=== PATIENT | female | born 1970 | race Caucasian/White ===

== ENCOUNTER 2016-10-31 20:12 | Emergency (ER) | payer OTHER ==
[~2016-10-31] VITALS: Ht 157.5 cm; Wt 69.9 kg
[~2016-10-31 20:12] MED LIST: ACET-1256 PO; ALBUAER19 INH; B-COTAB18 PO; CHOL100027 PO; DOXY100T35 PO; IBUP-1050 PO; MAGN500T4 PO; MULT-506 PO; OYST500T47 PO; VALA1TAB PO
[2016-10-31 20:17] VITALS: TEMP 36.5; Ht 157.5 cm; Wt 69.9 kg
[2016-10-31] MEDS ORDERED: PROCHLORPERAZINE 5 MG/ML 2 ML VIAL IV STA (21:46)
[2016-10-31] MEDS ORDERED: SUMATRIPTAN SUCCINATE 6 MG/0.5 ML VIAL SQ STA (21:46)
[2016-10-31] MEDS ORDERED: SODIUM CHLORIDE 0.9% 1000ML 1,000 ML IV STA (21:46)
[2016-10-31] MEDS ORDERED: DiphenhydrAMINE HCL 50 MG/ML VIAL IV STA (21:46)
[2016-10-31] MEDS ORDERED: HYDROmorphone INJ 1 MG/ML SYR IV STA ×2 (22:29→23:39)
[2016-10-31] MEDS ORDERED: HYDROmorphone INJ 0.5 MG/0.5 ML SYR ONE (23:51)
[2016-11-01] MEDS ORDERED: PROM25TA9 PO (00:27)
[2016-11-01 00:33] VITALS: BP 111/73; PULSE 82; O2SAT 98
--- NOTE | 2016-11-01 01:25 | EMERGENCY ROOM VISIT NOTE ---
History Report prepared by Todd: Teri Goldberg Under the Supervision of: Dr. Sridhar Tate M.D. First contact with patient: 21:39 Chief Complaint: HEADACHE Stated Complaint: MIGRAINE, NAUSEA, SINUS INFECTION, BRONCHITIS History of Present Illness The patient is a 46 year old female who presents to the Emergency Room with complaints of a worsening headache for the past 1.5 hours. Her pain is located in the back of her head bilaterally and radiates down to her neck. She has a history of migraine headaches and states that this feels like her typical migraine headache. The patient states that smells typically aggravate her migraines and this evening she was at the dog clinic with her dog. She thinks that the smells there triggered her headache. The patient rates her current pain as an 8/10 in severity. She typically takes Imitrex for her migraines but states that she is currently out of that medication so she didn't take any. She is nauseated but denies any vomiting. The patient is currently on amoxicillin for a sinus infection and bronchitis. She had a fever a few days ago but denies any more recent fevers. Source of History: patient Onset: 1.5 hours [employer] Position: head Symptom Intensity: 8/10 Quality: other (radiating) Timing: worsening Modifying Factors (Worsening): other (smells) Associated Symptoms: + nausea, No fevers, No vomiting Review of Systems See HPI for pertinent positives & negatives. A total of 10 systems reviewed and were otherwise negative. Past Medical & Surgical Medical Problems: (1) Abdominal pain (2) Abdominal pain (3) Anticoagulants,Lt,Current Use (4) Anxiety State Nos (5) Asthma (6) Asthma, Unspecified (7) Chest pain (8) Clavicle fracture (9) Deep venous thrombosis (10) Depressive Disorder Nec (11) Factor V Leiden (12) History of pulmonary embolus (PE) (13) Hyperlipidemia (14) Intractable headache (15) L1 compression fx (16) Left shoulder pain (17) Left shoulder pain (18) Migraine (19) Oth Forms Migraine W/O Intract Mgrn W/O Status Migrainosus (20) PERSONAL HX OF TIA,& CEREBRAL INFARCTION W/OUT RES DEFICITS (21) Pulmonary embolism (22) Radicular pain in left arm (23) Radicular pain in left arm (24) Subtherapeutic international normalized ratio (INR) (25) Vomiting Surgical Problems: (1) H/O: hysterectomy Social History Problems: (1) Hx-Venous Thrombosis&Embolism Family History Diabetes mellitus FH: [place] (myocardial infarction) FH: heart disease Hypertension Thromboembolic disease Social History Smoking Status: Never Smoker Alcohol Use: occasionally Drug Use: none Marital Status: Housing Status: lives with family Occupation Status: employed Current/Historical Medications Scheduled Apixaban (Eliquis), 5 MG PO BID B-Complex Vitamins (Vitamin B Complex), 1 TAB PO DAILY Cholecalciferol (Vitamin D 1000 Unit), 1,000 INTER.UNIT PO DAILY Escitalopram Oxalate (Escitalopram Oxalate), 20 MG PO QAM Lamotrigine (Lamictal), 150 MG PO QPM Scheduled PRN Albuterol (Ventolin Hfa), 2 PUFFS INH Q4-6HRS PRN for ASTHMA SYMPTOMS Promethazine Hcl (Phenergan), 25 MG PO Q6H PRN for Nausea Sumatriptan Succinate (Imitrex), 1 TAB PO UD PRN for Headache Trazodone HCl (Trazodone HCl), 50 MG PEG HS PRN for Sleep Valacyclovir Hcl (Valtrex), 1,000 MG PO DIRECTED PRN for OUTBREAKS Allergies Coded Allergies: No Known Allergies (Unverified , 10/31/16) Physical Exam Vital Signs Date Time Temp Pulse Resp B/P Pulse Ox O2 Delivery O2 Flow Rate FiO2 11/01/16 00:33 82 18 111/73 98 10/31/16 22:59 82 18 128/86 98 Room Air 10/31/16 20:17 36.5 96 18 121/80 97 Room Air Physical Exam Constitutional: Vital signs reviewed. Eyes: Pupils are equal round reactive to light. Conjunctiva are noninjected. ENT: Pharynx is clear without erythema or exudate. Mucous membranes are moist. Neck supple without meningeal signs. Respiratory: Clear to auscultation bilaterally. Breath sounds are equal bilaterally. Cardiovascular: Regular rate and rhythm. No rubs or gallops. GI: Soft, nondistended and nontender. Bowel sounds are present. Musculoskeletal: No peripheral edema. Integumentary: No cyanosis. Neurological: The patient is awake and alert. Cranial nerves II-XII are intact. Motor is 5 out of 5 all extremities. Sensation is intact to light touch all extremities. Normal speech. No pronator drift. Psychiatric: Normal affect. Medical Decision & Procedures Medications Administered Medications (Trade) Dose Ordered Sig/Shay Route Start Time Stop Time Status Last Admin Dose Admin Sodium Chloride (Nss 1000ml) 1,000 ml @ 999 mls/hr Q1H1M STAT IV 10/31/16 21:46 10/31/16 22:46 DC 10/31/16 22:14 999 MLS/HR Prochlorperazine Edisylate (Compazine Inj) 10 mg NOW STAT IV 10/31/16 21:46 10/31/16 21:55 DC 10/31/16 22:14 10 MG Diphenhydramine HCl (Benadryl Inj) 50 mg NOW STAT IV 10/31/16 21:46 10/31/16 21:55 DC 10/31/16 22:14 50 MG Sumatriptan Succinate (Imitrex Sq Inj) 6 mg NOW STAT SQ 10/31/16 21:46 10/31/16 21:55 DC 10/31/16 22:15 6 MG Hydromorphone HCl (Dilaudid Inj) 1 mg NOW STAT IV 10/31/16 22:29 10/31/16 22:30 DC 10/31/16 22:57 1 MG Hydromorphone HCl (Dilaudid Inj) 0.5 mg STK-MED ONCE .ROUTE 10/31/16 23:51 10/31/16 23:55 DC 10/31/16 23:56 0.5 MG ED Course 2138: The patient was evaluated in room B11B. A complete history and physical exam was performed. 2145: Imitrex 6 mg SQ, Benadryl 50 mg IV, Compazine 10 mg IV, NSS 1000 ml @ 999 mls/hr IV 2227: I reassessed the patient at this time and she thinks that the Benadryl made her headache worse. 9: Dilaudid 1 mg IV 2306: The patient states that her headache is starting to subside. 2338: The patient is feeling better but states that her headache is still there. 9: Dilaudid 0.5 mg IV 0001: I reassessed the patient at this time. She is feeling better and resting comfortably. I discussed the results and treatment plan with the patient. I answered all pertaining questions that she had. She expressed understanding and verbalized agreement. The patient will be discharged home. Medical Decision This is a 46-year-old female who presents with a migraine headache. I did perform a limited focused review of portions of the patient's old chart on the electronic medical record. The patient was admitted over a year ago for intractable migraine headache. I did evaluate the patient as noted above. The patient is presenting with a headache consistent with her prior migraine headaches. She is neurologically intact. She is afebrile. She did have a fever several days ago but states that this is related to her sinus and lung infection. She is currently on antibiotics. IV access was established. I did treat the patient with normal saline IV. She was also given Compazine and Benadryl IV. She was also given Imitrex subcutaneous. On reassessment she states that she has no significant relief of her symptoms and requested Dilaudid. She was treated with IV Dilaudid. On reassessment she is feeling better but still had a headache and was given a small dose of Dilaudid. She did feel better afterwards and felt ready for discharge. She was advised follow closely with her doctor. She was given a prescription for Phenergan per her request. She was given return instructions as outlined below. Impression Primary Impression: Headache Scribe Attestation The scribe's documentation has been prepared under my direct and personally reviewed by me in its entirety. I confirm that the note above accurately reflects all work, treatment, procedures, and medical decision making performed by me. Departure Information Dispostion Home / Self-Care Prescriptions Promethazine Hcl (Phenergan) 25 Mg Tab 25 MG PO Q6H Y for Nausea, #10 TAB Prov: Sridhar Tate M.D. 11/01/16 Referrals Alex Anders M.D. (PCP) Forms HOME CARE DOCUMENTATION FORM, IMPORTANT VISIT INFORMATION, Work Instructions Patient Instructions ED Headache Migraine, My [facility] Additional Instructions You have been examined and treated today on an emergency basis only. This is not a substitute for, or an effort to provide, complete comprehensive medical care. It is impossible to recognize and treat all injuries or illnesses in a single emergency department visit. It is therefore important that you follow up closely with your physician. Call as soon as possible for an appointment. Return for worsening symptoms or if you develop fever, numbness or weakness on one side of your body, difficulties with your speech or walking, or any other concerning symptoms. Problem Qualifiers Primary Impression: Headache Headache type: unspecified Headache chronicity pattern: acute headache Intractability: not intractable Qualified Codes: R51 - Headache
[2017-04-24] MEDS ORDERED: AMPH20CA3 PO (16:40)
[2017-04-24] MEDS ORDERED: AMPH30CA3 PO (16:40)
[2017-04-24] MEDS ORDERED: IBUP-1050 PO (16:41)
== END 2016-11-01 00:34 | disposition home or self-care (01) ==
LOC: C.EDB 20:13
DX: R51 Headache (principal); D68.2 Hereditary deficiency of other clotting factors; F41.9 Anxiety disorder, unspecified; J45.909 Unspecified asthma, uncomplicated; E78.5 Hyperlipidemia, unspecified; Z86.73 Personal history of transient ischemic attack (TIA), and cerebral infarction without residual deficits; Z86.711 Personal history of pulmonary embolism; Z79.01 Long term (current) use of anticoagulants

== ENCOUNTER 2016-11-30 15:38 | Emergency (ER) | payer OTHER ==
[~2016-11-30 15:38] MED LIST changes: -ACET-1256 PO; -ALBUAER19 INH; -DOXY100T35 PO; -IBUP-1050 PO; -MAGN500T4 PO; -MULT-506 PO; -OYST500T47 PO; +PROM25TA9 PO; -VALA1TAB PO
[2016-11-30 15:46] VITALS: TEMP 36.8; Ht 157.5 cm
[2016-11-30] MEDS ORDERED: SODIUM CHLORIDE 0.9% 500ML 500 ML IV STA (16:02)
[2016-11-30 16:19] LABS: BASO % 0.9 %; BASO ABS # 0.09 K/uL (0-0.2); COMPLETE YES; EOS % 2.2 %; HEMATOCRIT 38.9 % (37-47); IG% 0.2 %; LYMPH % 24.4 %; LYMPH ABS # 2.38 K/uL (1.2-3.4); MEAN CELL VOLUME 88.8 fL (80-100); MEAN CORPUSCULAR HEMOGLOBIN 30.8 pg (25-34); MEAN CORPUSCULAR HGB CONC 34.7 g/dl (32-36); MEAN PLATELET VOLUME 9.1 fL (7.4-10.4); MONO % 8.2 %; NEUT % 64.1 %; PLATELET COUNT 376 K/uL (130-400); RED BLOOD COUNT 4.38 M/uL (4.2-5.4); WHITE BLOOD COUNT 9.74 K/uL (4.8-10.8)
[2016-11-30 16:22] LABS: URINE APPEARANCE CLEAR (CLEAR); URINE BILIRUBIN NEG (NEG); URINE COLOR YELLOW; URINE EPITHELIAL CELL AUTO 20-30 /lpf (0-5); URINE NITRITE NEG (NEG); URINE PH 7.5 (4.5-7.5); URINE SPECIFIC GRAVITY 1.003 (1.000-1.030); UROBILINOGEN NEG (NEG); ZZUR CULT IF INDIC CLEAN CATCH NO
[2016-11-30] MEDS ORDERED: ONDANSETRON INJ 2 MG/ML 2 ML VIAL IV STA ×2 (16:28→19:50)
[2016-11-30 16:29] LABS: MANUAL MICROSCOPIC REQUIRED? NO; REVIEW REQ? NO
--- NOTE | 2016-11-30 16:34 | EMERGENCY ROOM VISIT NOTE ---
History Report prepared by Todd: Augustus Rivera Under the Supervision of: Dr. Alex Villalobos D.O. First contact with patient: 16:22 Chief Complaint: DIZZY Stated Complaint: DIZZY, EARS, ORTHOSTATIC Nursing Triage Summary: states she has felt "extremely dizzy and orthostatic" since this morning-states it is "never this bad" and she just "doesn't understand why it won't stop" History of Present Illness The patient is a 46 year old female who presents to the Emergency Room with complaints of dizziness that began this morning. She has been having dizziness for the past year. The patient went to see a Regulatory Affairs Spec secondary to this issue for a cardiac ECHO. She has not received the results yet. She was told that she has an orthostatic condition and to eat more salt. She has not been doing this. Her dizziness gets worse when she stands up from a sitting condition. She notes that she begins to get dizzy, feels numb, her vision "goes lee," and she starts to hear a helicopter-like "whoosh" noise in her ears. She denies any shortness of breath, chest pain, vomiting, room spinning, and a headache. She is currently feeling nauseated and has tightness around her ears. She is on blood thinners. She has a past history of a hysterectomy that occurred four years ago. Source of History: patient Onset: this morning Position: other (global) Symptom Intensity: moderate Quality: other (dizziness) Timing: waxes/wanes Modifying Factors (Worsening): movement (Standing) Associated Symptoms: + nausea, + numbness, No SOB, No chest pain, No headache, No vomiting Review of Systems See HPI for pertinent positives & negatives. A total of 10 systems reviewed and were otherwise negative. Past Medical & Surgical Medical Problems: (1) Abdominal pain (2) Abdominal pain (3) Anticoagulants,Lt,Current Use (4) Anxiety State Nos (5) Asthma (6) Asthma, Unspecified (7) Chest pain (8) Clavicle fracture (9) Deep venous thrombosis (10) Depressive Disorder Nec (11) Factor V Leiden (12) History of pulmonary embolus (PE) (13) Hyperlipidemia (14) Intractable headache (15) L1 compression fx (16) Left shoulder pain (17) Left shoulder pain (18) Migraine (19) Oth Forms Migraine W/O Intract Mgrn W/O Status Migrainosus (20) PERSONAL HX OF TIA,& CEREBRAL INFARCTION W/OUT RES DEFICITS (21) Pulmonary embolism (22) Radicular pain in left arm (23) Radicular pain in left arm (24) Subtherapeutic international normalized ratio (INR) (25) Vomiting Surgical Problems: (1) H/O: hysterectomy Social History Problems: (1) Hx-Venous Thrombosis&Embolism Family History Diabetes mellitus FH: [place] (myocardial infarction) FH: heart disease Hypertension Thromboembolic disease Social History Smoking Status: Never Smoker Alcohol Use: occasionally Drug Use: none Marital Status: Housing Status: lives with family Occupation Status: employed Current/Historical Medications Scheduled Amphetamine-Dextroamphetamine 20MG (Adderall Xr 20MG), 20 MG PO QAM Amphetamine-Dextroamphetamine 30MG (Adderall Xr 30MG), 30 MG PO QAM Apixaban (Eliquis), 5 MG PO BID Escitalopram Oxalate (Escitalopram Oxalate), 20 MG PO QAM Ibuprofen (Advil), 800 MG PO PRN UD Lamotrigine (Lamictal), 150 MG PO QPM Scheduled PRN Albuterol (Ventolin Hfa), 2 PUFFS INH Q4-6HRS PRN for ASTHMA SYMPTOMS Promethazine Hcl (Phenergan), 25 MG PO Q6H PRN for Nausea Sumatriptan Succinate (Imitrex), 1 TAB PO UD PRN for Headache Trazodone HCl (Trazodone HCl), 50-150 MG PEG HS PRN for Sleep Valacyclovir Hcl (Valtrex), 1,000 MG PO DIRECTED PRN for OUTBREAKS Allergies Coded Allergies: No Known Allergies (Unverified , 10/31/16) Physical Exam Vital Signs Date Time Temp Pulse Resp B/P Pulse Ox O2 Delivery O2 Flow Rate FiO2 11/30/16 21:01 88 14 117/80 98 Room Air 11/30/16 19:31 72 20 144/93 95 Room Air 11/30/16 18:46 70 20 140/83 11/30/16 17:07 75 12 125/56 97 Room Air 11/30/16 16:10 88 111/76 101 118/76 82 128/77 11/30/16 16:03 92 14 118/78 97 Room Air 11/30/16 16:02 93 11/30/16 15:46 36.8 94 20 108/73 97 Room Air Physical Exam GENERAL: Patient is awake, alert, and in no acute distress. Patient is resting comfortably and showing no signs of anxiety EYES: The conjunctivae are clear. The pupils are round and reactive. EARS, NOSE, MOUTH AND THROAT: The nose is without any evidence of any deformity. Mucous membranes are moist tongue is midline. TM's clear bilaterally. NECK: The neck is nontender and supple. RESPIRATORY: Normal respiratory effort is noted there is no evidence of wheezing rhonchi or rales CARDIOVASCULAR: Regular rate and rhythm noted there no murmurs rubs or gallops normal S1 normal S2 GASTROINTESTINAL: The abdomen is soft. Bowel sounds are present in all quadrants. Abdomen is nontender MUSCULOSKELETAL/EXTREMITIES: There is no evidence of gross deformity full range of motion is noted in the hips and shoulders SKIN: There is no obvious evidence of any rash. There are no petechiae, pallor or cyanosis noted. NEUROLOGIC: Patient is awake alert and oriented x3 strength is symmetric patellar reflexes are 2+ bilaterally Medical Decision & Procedures ER Provider Diagnostic Interpretation: Radiology results are stated below per my review and radiologist interpretation: CHEST ONE VIEW PORTABLE CLINICAL HISTORY: Dizzy. COMPARISON STUDY: Chest radiograph and chest CT July 20, 2015. FINDINGS: Lung volumes are normal. There is no pneumothorax or pleural effusion. There is no evidence of pulmonary edema. Cardiac size is normal. Mediastinal contours are normal. IMPRESSION: No acute cardiopulmonary findings. Electronically signed by: Norman Wilson M.D. 11/30/2016 4:32 PM Dictated Date/Time: 11/30/2016 4:[address] OF THE HEAD WITHOUT CONTRAST CLINICAL HISTORY: Headache. Dizziness. COMPARISON STUDY: Head CT July 21, 2012 and MRI of the brain October 10, 2014. CT DOSE: 1074.96 mGy.cm TECHNIQUE: Helical axial images of the head were obtained without IV contrast. Automated exposure control was utilized for the study. FINDINGS: No acute intracranial hemorrhage, midline shift or mass effect is present. Ventricular system is normal. Basilar cisterns are patent. No extra axial collections are present. Dickey-white differentiation is preserved. There are no findings to suggest acute dural sinus thrombosis or acute territorial infarct. There are postsurgical finding within the sinuses. Mastoid air cells are clear. There are no calvarial abnormalities. IMPRESSION: No acute intracranial findings. Electronically signed by: Norman Wilson M.D. 11/30/2016 8:16 PM Dictated Date/Time: 11/30/2016 8:10 PM Laboratory Results 11/30/16 16:03 Red Blood Count 4.38, Mean Corpuscular Volume 88.8, Mean Corpuscular Hemoglobin 30.8, Mean Corpuscular Hemoglobin Concent 34.7, Mean Platelet Volume 9.1, Neutrophils (%) (Auto) 64.1, Lymphocytes (%) (Auto) 24.4, Monocytes (%) (Auto) 8.2, Eosinophils (%) (Auto) 2.2, Basophils (%) (Auto) 0.9, Neutrophils # (Auto) 6.24, Lymphocytes # (Auto) 2.38, Monocytes # (Auto) 0.80, Eosinophils # (Auto) 0.21, Basophils # (Auto) 0.09 11/30/16 16:03 Test 11/30/16 16:03 11/30/16 16:05 11/30/16 16:10 White Blood Count 9.74 K/uL (4.8-10.8) Red Blood Count 4.38 M/uL (4.2-5.4) Hemoglobin 13.5 g/dL (12.0-16.0) Hematocrit 38.9 % (37-47) Mean Corpuscular Volume 88.8 fL (80-100) Mean Corpuscular Hemoglobin 30.8 pg (25-34) Mean Corpuscular Hemoglobin Concent 34.7 g/dl (32-36) Platelet Count 376 K/uL (130-400) Mean Platelet Volume 9.1 fL (7.4-10.4) Neutrophils (%) (Auto) 64.1 % Lymphocytes (%) (Auto) 24.4 % Monocytes (%) (Auto) 8.2 % Eosinophils (%) (Auto) 2.2 % Basophils (%) (Auto) 0.9 % Neutrophils # (Auto) 6.24 K/uL (1.4-6.5) Lymphocytes # (Auto) 2.38 K/uL (1.2-3.4) Monocytes # (Auto) 0.80 K/uL (0.11-0.59) Eosinophils # (Auto) 0.21 K/uL (0-0.5) Basophils # (Auto) 0.09 K/uL (0-0.2) RDW Standard Deviation 40.7 fL (36.4-46.3) RDW Coefficient of Variation 12.6 % (11.5-14.5) Immature Granulocyte % (Auto) 0.2 % Immature Granulocyte # (Auto) 0.02 K/uL (0.00-0.02) Anion Gap 6.0 mmol/L (3-11) Estimated GFR () 86.6 Estimated GFR (Non- 74.7 BUN/Creatinine Ratio 12.5 (10-20) Calcium Level 8.8 mg/dl (8.5-10.1) Total Bilirubin 0.2 mg/dl (0.2-1) Aspartate Amino Transf (AST/SGOT) 16 U/L (15-37) Alanine Aminotransferase (ALT/SGPT) 26 U/L (12-78) Alkaline Phosphatase 73 U/L (45-117) Total Creatine Kinase 130 U/L (26-192) Creatine Kinase MB 1.0 ng/ml (0.5-3.6) Creatine Kinase MB Ratio 0.8 (0-3.0) Total Protein 7.8 gm/dl (6.4-8.2) Albumin 4.2 gm/dl (3.4-5.0) Globulin 3.6 gm/dl (2.5-4.0) Albumin/Globulin Ratio 1.2 (0.9-2) Thyroid Stimulating Hormone (TSH) 1.500 uIu/ml (0.300-4.500) Urine Color YELLOW Urine Appearance CLEAR (CLEAR) Urine pH 7.5 (4.5-7.5) Urine Specific Almond 1.003 (1.000-1.030) Urine Protein NEG (NEG) Urine Glucose (UA) NEG (NEG) Urine Ketones NEG (NEG) Urine Occult Blood NEG (NEG) Urine Nitrite NEG (NEG) Urine Bilirubin NEG (NEG) Urine Urobilinogen NEG (NEG) Urine Leukocyte Esterase NEG (NEG) Urine WBC (Auto) 1-5 /hpf (0-5) Urine RBC (Auto) 0-4 /hpf (0-4) Urine Hyaline Casts (Auto) 0 /lpf (0-5) Urine Epithelial Cells (Auto) 20-30 /lpf (0-5) Urine Bacteria (Auto) NEG (NEG) Urine Test NEG (NEG) Bedside Troponin I 0.000 ng/ml (0-0.045) Laboratory results per my review. Medications Administered Medications (Trade) Dose Ordered Sig/Shay Route Start Time Stop Time Status Last Admin Dose Admin Sodium Chloride (Nss 500ml) 500 ml @ 999 mls/hr Q31M STAT IV 11/30/16 16:02 11/30/16 16:32 DC 11/30/16 16:02 999 MLS/HR Ondansetron HCl (Zofran Inj) 4 mg NOW STAT IV 11/30/16 16:28 11/30/16 16:29 DC 11/30/16 16:37 4 MG Sumatriptan Succinate (Imitrex Sq Inj) 6 mg NOW STAT SQ 11/30/16 17:56 11/30/16 17:57 DC 11/30/16 18:04 6 MG Hydromorphone HCl 0.5 mg 0.5 mg NOW STAT IV 11/30/16 17:56 11/30/16 17:57 DC 11/30/16 18:04 0.5 MG Promethazine HCl/ Sodium Chloride (Phenergan Inj/ Nss 50ml) 50.5 ml @ 204 mls/hr NOW STAT IV 11/30/16 18:14 11/30/16 18:28 DC 11/30/16 18:25 204 MLS/HR Diphenhydramine HCl (Benadryl Inj) 12.5 mg NOW STAT IV 11/30/16 18:34 11/30/16 18:35 DC 11/30/16 18:46 12.5 MG Hydromorphone HCl (Dilaudid Inj) 0.5 mg NOW STAT IV 11/30/16 18:34 11/30/16 18:35 DC 11/30/16 18:46 0.5 MG Ondansetron HCl (Zofran Inj) 4 mg NOW STAT IV 11/30/16 19:50 11/30/16 19:51 DC 11/30/16 20:34 4 MG Hydromorphone HCl (Dilaudid Inj) 0.5 mg NOW STAT IV 11/30/16 20:48 11/30/16 20:49 DC 11/30/16 20:56 0.5 MG Diphenhydramine HCl (Benadryl Inj) 12.5 mg NOW STAT IV 11/30/16 20:51 11/30/16 20:52 DC 11/30/16 20:56 12.5 MG Ondansetron HCl (ZOFRAN ODT 4MG Home Pack) 1 homepack UD ONCE PO 11/30/16 21:30 11/30/16 21:31 DC 11/30/16 21:31 1 HOMEPACK ECG Indication: other (Dizziness) Rate (beats per minute): 93 Rhythm: normal sinus Findings: no ectopy, other (No acute ST segments) Comparison ECG Date: 19 Jul 2015 Change: no significant change ED Course 1602: Ordered NSS 1,000 ml @ 999 mls/hr IV 1622: The patient was evaluated in room C4. A complete history and physical examination were performed. 1628: Ordered Zofran Inj 4 mg IV 1756: Ordered Dilaudid Inj 0.5 mg IV, Imitrex Sq Inj 6 mg SQ 1814: Ordered Promethazine HCl 12.5 mg/Sodium Chloride 50.5 ml @ 204 mls IV 1834: Ordered Dilaudid Inj 0.5 mg IV, Benadryl Inj 12.5 mg IV 1950: Ordered Zofran Inj 4 mg IV 2048: Ordered Dilaudid Inj 0.5 mg IV 2050: Ordered Benadryl Inj 12.5 mg IV 2129: Ordered Ondansetron HCl 1 homepack PO 2144: Upon reevaluation, the patient is resting. I discussed the results and treatment plan with her. She verbalized agreement of the treatment plan. She was discharged home. Medical Decision Differential diagnosis: Etiologies such as vasovagal event, infection, hypoglycemia, electrolyte abnormalities, cardiac sources, intracerebral event, toxicologic, neurologic, as well as others were entertained. Nursing notes reviewed. The patient is a 46-year-old female who has a history of orthostatic hypotension which is still being evaluated who presented to the emergency department for worsening of her orthostatic hypotension. The patient was treated with IV fluids and IV antiemetics in the emergency department. On subsequent reevaluation she was feeling much better but she started to develop a migraine headache. The patient is a history of chronic migraines. I reviewed the patient's previous electronic medical records and she was treated with medications that she is received in the past. I discussed the patient's laboratory and radiographic studies with her. She was encouraged to rest and avoid any strenuous activity. She was also encouraged to continue all medications as prescribed. She was also encouraged follow-up with her family doctor this week for reevaluation. The patient had an echocardiogram recently but she does not know the results of this study at this time. They were not in our system and she was encouraged to follow-up with her doctor about these results to see if any further testing was required. Impression Primary Impression: Orthostatic hypotension Additional Impression: Headache Scribe Attestation The scribe's documentation has been prepared under my direction and personally reviewed by me in its entirety. I confirm that the note above accurately reflects all work, treatment, procedures, and medical decision making performed by me. Departure Information Dispostion Home / Self-Care Referrals Alex Anders M.D. (PCP) Forms HOME CARE DOCUMENTATION FORM, IMPORTANT VISIT INFORMATION Patient Instructions ED Hypotension Orthostatic, Headaches Migraine and Tension, My [facility] Additional Instructions Rest and avoid any strenuous activity. Drink plenty clear liquids. Continue all medications as prescribed. Call your doctor in the morning to schedule a follow- up appointment. Problem Qualifiers
[2016-11-30 16:37] LABS: ALT/SGPT 26 U/L (12-78); AST/SGOT 16 U/L (15-37); BLOOD UREA NITROGEN 12 mg/dl (7-18); BUN/CREATININE RATIO 12.5 (10-20); CALCIUM 8.8 mg/dl (8.5-10.1); CARBON DIOXIDE 29 mmol/L (21-32); CHLORIDE 105 mmol/L (98-107); CREATININE 0.93 mg/dl (0.60-1.20); GLUCOSE 84 mg/dl (70-99); POTASSIUM 3.8 mmol/L (3.5-5.1); SODIUM 140 mmol/L (136-145)
[2016-11-30 16:48] LABS: ALB/GLOB RATIO 1.2 (0.9-2); ALKALINE PHOSPHATASE 73 U/L (45-117); CKMB/CK RATIO 0.8 (0-3.0)
[2016-11-30] MEDS ORDERED: SUMA25TA12 PO (17:38)
[2016-11-30] MEDS ORDERED: SUMATRIPTAN SUCCINATE 6 MG/0.5 ML VIAL SQ STA (17:56)
[2016-11-30] MEDS ORDERED: HYDROmorphone INJ 0.5 MG/0.5 ML SYR IV STA ×3 (17:56→20:48)
[2016-11-30] MEDS ORDERED: PROMETHAZINE HCL INJ 12.5 MG in SODIUM CHLORIDE 0.9% 50ML 50 ML IV STA (18:14)
[2016-11-30] MEDS ORDERED: DiphenhydrAMINE HCL 50 MG/ML VIAL IV STA ×2 (18:34→20:51)
--- NOTE | 2016-11-30 20:19 | DIAGNOSTIC IMAGING REPORT ---
CT OF THE HEAD WITHOUT CONTRAST CLINICAL HISTORY: Headache. Dizziness. COMPARISON STUDY: Head CT July 21, 2012 and MRI of the brain October 10, 2014. CT DOSE: 1074.96 mGy.cm TECHNIQUE: Helical axial images of the head were obtained without IV contrast. Automated exposure control was utilized for the study. FINDINGS: No acute intracranial hemorrhage, midline shift or mass effect is present. Ventricular system is normal. Basilar cisterns are patent. No extra axial collections are present. Dickey-white differentiation is preserved. There are no findings to suggest acute dural sinus thrombosis or acute territorial infarct. There are postsurgical finding within the sinuses. Mastoid air cells are clear. There are no calvarial abnormalities. IMPRESSION: No acute intracranial findings. Electronically signed by: Norman Wilson M.D. 11/30/2016 8:16 PM Dictated Date/Time: 11/30/2016 8:10 PM
[2016-11-30 21:01] VITALS: BP 117/80; PULSE 88; O2SAT 98
[2016-11-30] MEDS ORDERED: ONDANSETRON HOME PACK 4MG OD TAB PO ONE (21:30)
[2016-11-30] MEDS ORDERED: PRVHFAIN INH (22:53)
[2017-04-24] MEDS ORDERED: AMPH30CA3 PO (16:40)
[2017-04-24] MEDS ORDERED: AMPH20CA3 PO (16:40)
[2017-04-24] MEDS ORDERED: IBUP-1050 PO (16:41)
== END 2016-11-30 21:36 | disposition home or self-care (01) ==
LOC: C.EDB 15:40 → C.EDC 21:36
DX: I95.1 Orthostatic hypotension (principal); Z90.710 Acquired absence of both cervix and uterus; Z79.01 Long term (current) use of anticoagulants; Z79.899 Other long term (current) drug therapy; F41.9 Anxiety disorder, unspecified; J45.909 Unspecified asthma, uncomplicated; F32.9 Major depressive disorder, single episode, unspecified; Z86.711 Personal history of pulmonary embolism; Z86.718 Personal history of other venous thrombosis and embolism; E78.5 Hyperlipidemia, unspecified; Z86.73 Personal history of transient ischemic attack (TIA), and cerebral infarction without residual deficits; Z83.3 Family history of diabetes mellitus; Z82.49 Family history of ischemic heart disease and other diseases of the circulatory system; D68.51 Activated protein C resistance; G43.909 Migraine, unspecified, not intractable, without status migrainosus

== ENCOUNTER → 2016-12-02 | Outpatient (CLI) | payer OTHER ==
[~2016-12-02] MED LIST changes: +AMPH20CA3 PO; +AMPH30CA3 PO; +APIX1TAB3 PO; +DICL1GEL34 TOP; +DSY/150 PO; +IBUP-1050 PO; +IMT100 PO; +LAMO150T32 PO; +LXP/20 PO; +PROM25TA16 PO; +PRVHFAIN INH; +SUMA25TA12 PO; +VALA1TAB2 PO; +VNTHFA/IN INH
--- NOTE | 2016-12-02 14:57 | DIAGNOSTIC IMAGING REPORT ---
RIGHT SHOULDER 3 VIEWS HISTORY: STRAIN OF TENDON OF RIGHT ROTATOR CUFF Right COMPARISON: None. FINDINGS: There is no fracture or dislocation. Soft tissues are unremarkable. No radiopaque foreign bodies. The right clavicle is intact. IMPRESSION: No fractures. Electronically signed by: Joseph Javier M.D. 12/02/2016 2:55 PM Dictated Date/Time: 12/02/2016 2:54 PM
== END | disposition home or self-care (01) ==
LOC: C.RAD1850 14:31
PROVIDERS: ATTEND Physician Assistant
DX: S46.011A Strain of muscle(s) and tendon(s) of the rotator cuff of right shoulder, initial encounter (principal); X58.XXXA Exposure to other specified factors, initial encounter

== ENCOUNTER 2017-04-24 17:37 | Emergency (ER) | payer OTHER ==
[~2017-04-24] VITALS: Ht 160 cm; Wt 70.0 kg
[~2017-04-24 17:37] MED LIST changes: -APIX1TAB3 PO; -B-COTAB18 PO; -CHOL100027 PO; -DICL1GEL34 TOP; -DSY/150 PO; -IMT100 PO; -LAMO150T32 PO; -LXP/20 PO; -PROM25TA16 PO; -VALA1TAB2 PO; -VNTHFA/IN INH
[2017-04-24 17:42] VITALS: TEMP 36.8; Ht 160 cm; Wt 70.0 kg
[2017-04-24] MEDS ORDERED: DICL1GEL34 TOP (18:38)
[2017-04-24] MEDS ORDERED: IMT100 PO (18:38)
[2017-04-24] MEDS ORDERED: VNTHFA/IN INH (18:38)
[2017-04-24] MEDS ORDERED: PROM25TA16 PO (18:38)
[2017-04-24] MEDS ORDERED: ACETAMINOPHEN 500 MG TAB PO STA (18:48)
[2017-04-24] MEDS ORDERED: IBUPROFEN 600 MG TAB PO STA (18:48)
--- NOTE | 2017-04-24 18:51 | DIAGNOSTIC IMAGING REPORT ---
LEFT HAND MIN 3 VIEWS ROUTINE CLINICAL HISTORY: Left hand injury. 3rd mcp swelling. COMPARISON: None FINDINGS: Alignment of left hand is anatomic. There is no acute fracture. Carpal bones are intact. IMPRESSION: No acute fracture or dislocation of the left hand. Electronically signed by: Norman Wilson M.D. 04/24/2017 6:49 PM Dictated Date/Time: 04/24/2017 6:29 PM
[2017-04-24] MEDS ORDERED: TRAMADOL HCL 50 MG HOME PACK PO ONE (19:00)
[2017-04-24 19:13] VITALS: BP 122/76; PULSE 72; O2SAT 97
--- NOTE | 2017-04-24 20:02 | EMERGENCY ROOM VISIT NOTE ---
ED Visit Note First contact with patient: 17:49 CHIEF COMPLAINT: Hand injury HISTORY OF PRESENT ILLNESS: This 46-year-old female patient presented to the emergency department after they injured the left hand after falling yesterday. The patient slipped, and essentially punched into the ground with her second and third metacarpals. The patient rates the pain as sharp and 6/10. The patient denies any numbness or tingling. The patient does not have injuries to the wrist. The patient has not had a previous fracture to this hand. REVIEW OF SYSTEMS: A 6 system review of systems was completed with positives and pertinent negatives in the HPI. ALLERGIES: No known allergies MEDICATIONS: [place] PMH: History of DVT/PE SOCIAL HISTORY: Lives locally. Employed. PHYSICAL EXAM: Vital Signs: Reviewed Nurse's notes, vital signs stable. GENERAL : White female, in no acute distress, but appears to be in pain, well-developed , well-nourished. MUSCULOSKELETAL: There is no significant deformity of the left hand. There is tenderness over the second and third metacarpal phalangeal joints. There is no thenar or hypothenar eminence atrophy. Normal thumb opposition to all fingers. Seo Assistant strength 2/5. There is no laceration. Capillary refill less than 2 seconds. No tenderness of the fingers or wrist. Full range of motion of the wrist. No snuff box tenderness. Radial pulse 2+. NEURO: Alert and oriented to person, place, and time. Normal sensation to light and sharp touch. LEFT HAND MIN 3 VIEWS ROUTINE CLINICAL HISTORY: Left hand injury. 3rd mcp swelling. COMPARISON: None FINDINGS: Alignment of left hand is anatomic. There is no acute fracture. Carpal bones are intact. IMPRESSION: No acute fracture or dislocation of the left hand. EMERGENCY DEPARTMENT COURSE: Physical exam and history were performed. Nursing notes and EMR were reviewed. The patient appears to have suffered injury to her left hand as described above. On examination she is tender over the second and third metacarpophalangeal joints. X-ray was obtained. The patient was given Tylenol here in the department. The x-ray does not show evidence of acute fracture or dislocation per my radiologist interpretation. Overall the patient appears well for discharge home. I suspect that most of her discomfort is from the contusion, and this should improve over time. I will give her a home pack of tramadol for this evening. She is to follow with her primary care physician or orthopedist with any ongoing or persistent symptoms. Problem List Medical Problems: (1) Abdominal pain Status: Resolved (2) Abdominal pain Status: Resolved (3) Anticoagulants,Lt,Current Use Status: Chronic (4) Anxiety State Nos Status: Chronic (5) Asthma Status: Chronic (6) Asthma, Unspecified Status: Chronic (7) Chest pain Status: Resolved (8) Clavicle fracture Status: Resolved (9) Deep venous thrombosis Status: Resolved (10) Depressive Disorder Nec Status: Chronic (11) Factor V Leiden Status: Chronic (12) History of pulmonary embolus (PE) Status: Chronic (13) Hyperlipidemia Status: Chronic (14) Intractable headache Status: Resolved (15) L1 compression fx Status: Resolved (16) Left shoulder pain Status: Resolved (17) Left shoulder pain Status: Resolved (18) Oth Forms Migraine W/O Intract Mgrn W/O Status Migrainosus Status: Chronic (19) PERSONAL HX OF TIA,& CEREBRAL INFARCTION W/OUT RES DEFICITS Status: Resolved (20) Pulmonary embolism Status: Resolved (21) Radicular pain in left arm Status: Resolved (22) Radicular pain in left arm Status: Resolved (23) Subtherapeutic international normalized ratio (INR) Status: Resolved (24) Vomiting Status: Resolved Surgical Problems: (1) H/O: hysterectomy Status: Resolved Current/Historical Medications Scheduled Amphetamine-Dextroamphetamine 20MG (Adderall Xr 20MG), 20 MG PO QAM Amphetamine-Dextroamphetamine 30MG (Adderall Xr 30MG), 30 MG PO QAM Apixaban (Eliquis), 5 MG PO BID Escitalopram Oxalate (Escitalopram Oxalate), 10 MG PO QAM Ibuprofen (Advil), 800 MG PO UD Lamotrigine (Lamictal), 150 MG PO QPM Scheduled PRN Albuterol Hfa (Ventolin Hfa), 1-2 PUFFS INH Q4-6HRS PRN for SOB/Wheezing Diclofenac Sodium (Topical) (Diclofenac Sodium), 1 APPLN TOP QID PRN for Pain Promethazine HCl (Promethazine HCl), 25 MG PO Q6H PRN for Nausea Sumatriptan Succinate (Imitrex), 100 MG PO UD PRN for Migraine Trazodone HCl (Trazodone HCl), 75 MG PO HS PRN for Insomnia Valacyclovir Hcl (Valtrex), 1,000 MG PO UD PRN for Outbreaks Allergies Coded Allergies: No Known Allergies (Unverified , 10/31/16) Vital Signs Date Time Temp Pulse Resp B/P (MAP) Pulse Ox O2 Delivery O2 Flow Rate FiO2 04/24/17 19:13 72 20 122/76 97 04/24/17 17:42 36.8 96 18 127/77 95 Room Air Medications Administered Medications (Trade) Dose Ordered Sig/Shay Route Start Time Stop Time Status Last Admin Dose Admin Acetaminophen (Tylenol Tab) 1,000 mg NOW STAT PO 04/24/17 18:48 04/24/17 18:49 DC 04/24/17 19:10 1,000 MG Tramadol HCl (Ultram Home Pack) 1 homepack UD ONCE PO 04/24/17 19:00 04/24/17 19:01 DC 04/24/17 19:10 1 HOMEPACK Departure Information Impression Primary Impression: Injury of left hand Dispostion Home / Self-Care Condition GOOD Forms HOME CARE DOCUMENTATION FORM, Work Instructions, Additional Instructions: Patient was seen in the emergency department for medical care. Return t work on 04/28/2017. IMPORTANT VISIT INFORMATION Patient Instructions My [facility] Additional Instructions You were seen and evaluated today on an emergency basis only. This is not a substitute for, or an effort to provide, complete comprehensive medical care. It is not possible to recognize and treat all injuries or illnesses in a single emergency department visit. For this reason it is recommended that you followup with your primary care physician next week for any ongoing or persistent symptoms. You may use tramadol (homepack) 50 mg every 8 hours for breakthrough pain. Do not drink or drive on this medication. You are welcome to return to the emergency department anytime with new, worsening, or concerning symptoms. Work Instructions Additional Work Instructions: Patient was seen in the emergency department for medical care. Return to work on 04/28/2017.
[2017-04-24] MEDS ORDERED: APIX1TAB3 PO (20:21)
[2017-04-24] MEDS ORDERED: DSY/150 PO (20:21)
[2017-04-24] MEDS ORDERED: LAMO150T32 PO (21:34)
[2017-04-24] MEDS ORDERED: LXP/20 PO (21:34)
[2017-04-24] MEDS ORDERED: VALA1TAB2 PO (22:53)
== END 2017-04-24 19:14 | disposition home or self-care (01) ==
LOC: C.EDB 17:38 → C.EDD 19:14
DX: S69.92XA Unspecified injury of left wrist, hand and finger(s), initial encounter (principal); W01.198A Fall on same level from slipping, tripping and stumbling with subsequent striking against other object, initial encounter; Z79.01 Long term (current) use of anticoagulants; Z86.718 Personal history of other venous thrombosis and embolism; Z86.711 Personal history of pulmonary embolism; F41.9 Anxiety disorder, unspecified; J45.909 Unspecified asthma, uncomplicated; F32.9 Major depressive disorder, single episode, unspecified; D68.51 Activated protein C resistance; E78.5 Hyperlipidemia, unspecified; Z86.73 Personal history of transient ischemic attack (TIA), and cerebral infarction without residual deficits; Z90.710 Acquired absence of both cervix and uterus; Z79.899 Other long term (current) drug therapy

== ENCOUNTER → 2017-06-11 | Outpatient (CLI) | payer OTHER ==
[~2017-06-11] MED LIST changes: +APIX1TAB3 PO; +DICL1GEL34 TOP; +DSY/150 PO; +IMT100 PO; +LAMO150T32 PO; +LXP/20 PO; +PROM25TA16 PO; -PROM25TA9 PO; -PRVHFAIN INH; -SUMA25TA12 PO; +VALA1TAB2 PO; +VNTHFA/IN INH
[2017-06-11 13:16] LABS: BASO % 0.5 %; BASO ABS # 0.05 K/uL (0-0.2); COMPLETE YES; EOS % 0.4 %; HEMATOCRIT 41.6 % (37-47); IG% 0.2 %; LYMPH % 18.5 %; LYMPH ABS # 2.04 K/uL (1.2-3.4); MEAN CELL VOLUME 89.8 fL (80-100); MEAN CORPUSCULAR HEMOGLOBIN 30.7 pg (25-34); MEAN CORPUSCULAR HGB CONC 34.1 g/dl (32-36); MEAN PLATELET VOLUME 9.6 fL (7.4-10.4); MONO % 4.4 %; PLATELET COUNT 383 K/uL (130-400); RED BLOOD COUNT 4.63 M/uL (4.2-5.4); WHITE BLOOD COUNT 11.05 K/uL (4.8-10.8)
[2017-06-11 13:50] LABS: ALT/SGPT 33 U/L (12-78); AST/SGOT 20 U/L (15-37); BLOOD UREA NITROGEN 16 mg/dl (7-18); BUN/CREATININE RATIO 15.2 (10-20); CALCIUM 9.6 mg/dl (8.5-10.1); CARBON DIOXIDE 26 mmol/L (21-32); CHLORIDE 102 mmol/L (98-107); CREATININE 1.03 mg/dl (0.60-1.20); GLUCOSE 91 mg/dl (70-99); POTASSIUM 3.6 mmol/L (3.5-5.1); SODIUM 137 mmol/L (136-145)
[2017-06-11 13:54] LABS: ALB/GLOB RATIO 1.1 (0.9-2); ALKALINE PHOSPHATASE 75 U/L (45-117); C-REACTIVE PROTEIN 0.37 mg/dl (0-0.29); TOTAL IRON BINDING CAPACITY 383 mcg/dl (250-450)
[2017-06-11 14:27] LABS: LYME DISEASE AB IGG NEG (NEG); LYME DISEASE AB IGM NEG (NEG)
== END | disposition home or self-care (01) ==
LOC: C.LAB1850 12:03
PROVIDERS: ATTEND Physician Assistant
DX: R53.81 Other malaise (principal)

== ENCOUNTER 2017-08-06 10:20 | Observation (INO) | payer OTHER ==
[~2017-08-06] VITALS: Ht 160 cm; Wt 67.4 kg
[2017-08-06] VITALS (10 sets, daily range): BP systolic 109–128; BP diastolic 71–81; PULSE 77–97; TEMP 36.7–36.9; O2SAT 92–97; Ht 160 cm; Wt 67.4 kg
[~2017-08-06 10:20] MED LIST changes: -AMPH20CA3 PO; -AMPH30CA3 PO; -APIX1TAB3 PO; -DICL1GEL34 TOP; -DSY/150 PO; -IMT100 PO; -LAMO150T32 PO; -PROM25TA16 PO; -VALA1TAB2 PO; -VNTHFA/IN INH
[2017-08-06] MEDS ORDERED: SODIUM CHLORIDE 0.9% 1000ML 1,000 ML IV SCH (10:43)
--- NOTE | 2017-08-06 10:59 | DIAGNOSTIC IMAGING REPORT ---
HEAD CT NONCONTRAST CT DOSE: 638.56 mGycm HISTORY: Stroke TECHNIQUE: Multiaxial CT images of the head were performed without the use of intravenous contrast. Automated exposure control was utilized for this study. A dose lowering technique was utilized adhering to the principles of ALARA. Comparison: Head CT 11/30/2016. Findings: The paranasal sinuses and mastoid air cells are clear. The calvarium and skull base are intact. The ventricles and sulci are within normal limits. There is no mass, hematoma, midline shift, or acute infarct. Impression: No acute intracranial abnormality. Electronically signed by: Joseph Javier M.D. 08/06/2017 10:58 AM Dictated Date/Time: 08/06/2017 10:51 AM
[2017-08-06 11:27] LABS: BASO % 0.6 %; BASO ABS # 0.07 K/uL (0-0.2); EOS ABS # 0.12 K/uL (0-0.5); HEMATOCRIT 40.7 % (37-47); HEMOGLOBIN 13.9 g/dL (12.0-16.0); IG# 0.01 K/uL (0.00-0.02); LYMPH % 13.3 %; LYMPH ABS # 1.65 K/uL (1.2-3.4); MEAN CELL VOLUME 91.1 fL (80-100); MEAN CORPUSCULAR HEMOGLOBIN 31.1 pg (25-34); MEAN CORPUSCULAR HGB CONC 34.2 g/dl (32-36); MEAN PLATELET VOLUME 9.6 fL (7.4-10.4); MONO % 5.5 %; MONO ABS # 0.68 K/uL (0.11-0.59); NEUT % 79.5 %; NEUT ABS # 9.85 K/uL (1.4-6.5); PLATELET COUNT 361 K/uL (130-400); RED CELL DISTRIBUTION WIDTH CV 12.7 % (11.5-14.5); RED CELL DISTRIBUTION WIDTH SD 41.7 fL (36.4-46.3); WHITE BLOOD COUNT 12.38 K/uL (4.8-10.8)
[2017-08-06] MEDS ORDERED: ASPIRIN 81 MG CHEW PO STA (11:33)
[2017-08-06] MEDS ORDERED: SODIUM CHLORIDE 0.9% 1000ML 1,000 ML IV STA (11:33)
[2017-08-06] MEDS ORDERED: ACETAMINOPHEN 500 MG TAB PO STA (11:33)
[2017-08-06 11:36] LABS: PTT PATIENT 25.5 SECONDS (21.0-31.0)
[2017-08-06] MEDS ORDERED: RISP0.5T10 PO (11:38)
[2017-08-06 11:46] LABS: BLOOD UREA NITROGEN 10 mg/dl (7-18); CALCIUM 8.9 mg/dl (8.5-10.1); CARBON DIOXIDE 25 mmol/L (21-32); CREATININE 0.94 mg/dl (0.60-1.20); GLUCOSE 96 mg/dl (70-99); POTASSIUM 3.6 mmol/L (3.5-5.1); SODIUM 136 mmol/L (136-145)
[2017-08-06 11:51] LABS: CKMB < 0.5 ng/ml (0.5-3.6)
[2017-08-06] MEDS ORDERED: KETOROLAC TROMETHAMINE 30 MG/ML VIAL IV STA (11:54)
[2017-08-06] MEDS ORDERED: DiphenhydrAMINE HCL 50 MG/ML VIAL IV STA (11:54)
[2017-08-06] MEDS ORDERED: PROCHLORPERAZINE 5 MG/ML 2 ML VIAL IV STA (11:54)
[2017-08-06] MEDS ORDERED: PHARMACIST DISCHARGE MED REC CONSULT PRN (12:45)
[2017-08-06] MEDS ORDERED: ACETAMINOPHEN 325 MG TAB PO PRN (12:45)
[2017-08-06] MEDS ORDERED: ALBUTEROL HFA 8 GM INHALER INH PRN (13:00)
[2017-08-06] MEDS ORDERED: DiphenhydrAMINE HCL 50 MG/ML VIAL IV PRN (13:00)
--- NOTE | 2017-08-06 13:03 | DIAGNOSTIC IMAGING REPORT ---
CHEST ONE VIEW PORTABLE HISTORY: Stroke COMPARISON: Chest 11/30/2016. FINDINGS: The lungs are clear. Cardiac silhouette is normal in size. No pleural effusions. No pneumothorax. IMPRESSION: No acute process. Electronically signed by: Joseph Javier M.D. 08/06/2017 1:02 PM Dictated Date/Time: 08/06/2017 1:01 PM
[2017-08-06] MEDS ORDERED: MAGNESIUM SULFATE 1GM / D5W 1 GM in PREMIXED IN D5W 100 ML IV ONE (14:00)
[2017-08-06] MEDS ORDERED: IV FLUIDS COMPLETED PRN (14:00)
--- NOTE | 2017-08-06 14:23 | NUR ---
A- Alert and oriented. Heart monitor applied. Vs obtained, oriented to room and call mcgee. C/o headache and right hand and foot numbness/tingling. Report given to Beatriz STEELE
[2017-08-06] MEDS: SODIUM CHLORIDE 0.9% 1000ML 1,000 ML IV SCH ×2 (14:47→23:51)
[2017-08-06] MEDS ORDERED: HYDROmorphone INJ 0.5 MG/0.5 ML SYR ONE (15:28)
[2017-08-06] MEDS ORDERED: NURSING VERBAL MED ORDER ONE (15:30)
--- NOTE | 2017-08-06 16:09 | EMERGENCY ROOM VISIT NOTE ---
History Report prepared by Todd: Sridhar Miller Under the Supervision of: Dr. Ignacio Youssef D.O. First contact with patient: 10:32 Chief Complaint: STROKE SYMPTOMS Stated Complaint: RIGHT SIDE NUMB, HISTORY TIA, AND PE'S History of Present Illness The patient is a 47 year old female who presents to the Emergency Room with complaints of constant right side weakness and numbness that began about a half an hour ago when she was at her desk at work. She admits to having associated symptoms of shortness of breath and diarrhea since this morning. Patient has a history of PE's and TIA's due to Factor V Leiden. She states that her current symptoms are similar to her previous TIA's. Patient states that she has been taking Eliquis for the past 2 years. She previously took warfarin but "could not regulate it". Patient adds that she has not had any blood clots since being on Eliquis. She admits to missing two doses 3 and 4 days ago. Source of History: patient Onset: 30 minutes ago Position: other (Right side) Quality: numbness, other (Weakness) Timing: constant Associated Symptoms: + SOB, + diarrhea Review of Systems See HPI for pertinent positives & negatives. A total of 10 systems reviewed and were otherwise negative. Past Medical & Surgical Medical Problems: (1) Abdominal pain (2) Abdominal pain (3) Anticoagulants,Lt,Current Use (4) Anxiety State Nos (5) Asthma (6) Asthma, Unspecified (7) Chest pain (8) Clavicle fracture (9) Deep venous thrombosis (10) Depressive Disorder Nec (11) Factor V Leiden (12) Hemiparesis (13) History of pulmonary embolus (PE) (14) Hyperlipidemia (15) Intractable headache (16) L1 compression fx (17) Left shoulder pain (18) Left shoulder pain (19) Migraine (20) Oth Forms Migraine W/O Intract Mgrn W/O Status Migrainosus (21) PERSONAL HX OF TIA,& CEREBRAL INFARCTION W/OUT RES DEFICITS (22) Pulmonary embolism (23) Radicular pain in left arm (24) Radicular pain in left arm (25) Subtherapeutic international normalized ratio (INR) (26) Vomiting Surgical Problems: (1) H/O: hysterectomy Social History Problems: (1) Hx-Venous Thrombosis&Embolism Family History Diabetes mellitus FH: PA (myocardial infarction) FH: heart disease Hypertension Thromboembolic disease Social History Smoking Status: Never Smoker Alcohol Use: occasionally Drug Use: none Marital Status: Housing Status: lives with family Occupation Status: employed Current/Historical Medications Scheduled Amphetamine-Dextroamphetamine 20MG (Adderall Xr 20MG), 20 MG PO QAM Amphetamine-Dextroamphetamine 30MG (Adderall Xr 30MG), 30 MG PO QAM Apixaban (Eliquis), 5 MG PO BID Escitalopram Oxalate (Escitalopram Oxalate), 10 MG PO QAM Lamotrigine (Lamictal), 150 MG PO QPM Risperidone (Risperdal), 1 MG PO HS Scheduled PRN Albuterol Hfa (Ventolin Hfa), 1-2 PUFFS INH Q4-6HRS PRN for SOB/Wheezing Diclofenac Sodium (Topical) (Diclofenac Sodium), 1 APPLN TOP QID PRN for Pain Promethazine HCl (Promethazine HCl), 25 MG PO Q6H PRN for Nausea Sumatriptan Succinate (Imitrex), 100 MG PO UD PRN for Migraine Trazodone HCl (Trazodone HCl), 75 MG PO HS PRN for Insomnia Valacyclovir Hcl (Valtrex), 1,000 MG PO UD PRN for Outbreaks Allergies Coded Allergies: No Known Allergies (Unverified , 10/31/16) Physical Exam Vital Signs Date Time Temp Pulse Resp B/P (MAP) Pulse Ox O2 Delivery O2 Flow Rate FiO2 08/06/17 11:06 101 20 121/84 97 Room Air 08/06/17 10:38 99 08/06/17 10:35 99 Room Air 08/06/17 10:26 36.4 107 18 121/76 100 Room Air Physical Exam GENERAL: Sitting up in bed, alert, well appearing, well nourished, anxious, non- toxic EYE EXAM: normal conjunctiva. PERRL and EOM's intact. OROPHARYNX: no exudate, no erythema, lips, buccal mucosa, and tongue normal and mucous membranes are moist NECK: supple, no nuchal rigidity, no adenopathy, non-tender LUNGS: Clear to auscultation. Normal chest wall mechanics HEART: no murmurs, S1 normal and S2 normal ABDOMEN: abdomen soft, non-tender, normo-active bowel sounds, no masses, no rebound or guarding. BACK: Back is symmetrical on inspection and there is no deformity, no midline tenderness, no CVA tenderness. SKIN: no rashes and no bruising UPPER EXTREMITIES: upper extremities are grossly normal. LOWER EXTREMITIES: No weakness in lower extremities. Calves equal bilateral. No pitting edema. NEURO EXAM: Normal sensorium, cranial nerves II-XII intact, normal speech, no weakness in upper left extremity, weakness in right extremity with grasp, and flexion and extension of the elbow. Questionable functional component. No drift. Finger to nose intact. Gross sensation intact. Medical Decision & Procedures ER Provider Diagnostic Interpretation: Radiology results as stated below per my review and the radiologist's interpretation: CHEST ONE VIEW PORTABLE HISTORY: Stroke COMPARISON: Chest 11/30/2016. FINDINGS: The lungs are clear. Cardiac silhouette is normal in size. No pleural effusions. No pneumothorax. IMPRESSION: No acute process. Electronically signed by: Joseph Javier M.D. 08/06/2017 1:[address] CT DOSE: 638.56 mGycm HISTORY: Stroke TECHNIQUE: Multiaxial CT images of the head were performed without the use of intravenous contrast. Automated exposure control was utilized for this study. A dose lowering technique was utilized adhering to the principles of ALARA. Comparison: Head CT 11/30/2016. Findings: The paranasal sinuses and mastoid air cells are clear. The calvarium and skull base are intact. The ventricles and sulci are within normal limits. There is no mass, hematoma, midline shift, or acute infarct. Impression: No acute intracranial abnormality. Electronically signed by: Joseph Javier M.D. 08/06/2017 10:58 AM Laboratory Results 08/06/17 11:06 Red Blood Count 4.47, Mean Corpuscular Volume 91.1, Mean Corpuscular Hemoglobin 31.1, Mean Corpuscular Hemoglobin Concent 34.2, Mean Platelet Volume 9.6, Neutrophils (%) (Auto) 79.5, Lymphocytes (%) (Auto) 13.3, Monocytes (%) (Auto) 5.5, Eosinophils (%) (Auto) 1.0, Basophils (%) (Auto) 0.6, Neutrophils # (Auto) 9.85, Lymphocytes # (Auto) 1.65, Monocytes # (Auto) 0.68, Eosinophils # (Auto) 0.12, Basophils # (Auto) 0.07 08/06/17 11:06 Test 08/06/17 10:51 08/06/17 11:06 Bedside Prothrombin Time INR 1.0 (0.9-1.1) White Blood Count 12.38 K/uL (4.8-10.8) Red Blood Count 4.47 M/uL (4.2-5.4) Hemoglobin 13.9 g/dL (12.0-16.0) Hematocrit 40.7 % (37-47) Mean Corpuscular Volume 91.1 fL (80-100) Mean Corpuscular Hemoglobin 31.1 pg (25-34) Mean Corpuscular Hemoglobin Concent 34.2 g/dl (32-36) Platelet Count 361 K/uL (130-400) Mean Platelet Volume 9.6 fL (7.4-10.4) Neutrophils (%) (Auto) 79.5 % Lymphocytes (%) (Auto) 13.3 % Monocytes (%) (Auto) 5.5 % Eosinophils (%) (Auto) 1.0 % Basophils (%) (Auto) 0.6 % Neutrophils # (Auto) 9.85 K/uL (1.4-6.5) Lymphocytes # (Auto) 1.65 K/uL (1.2-3.4) Monocytes # (Auto) 0.68 K/uL (0.11-0.59) Eosinophils # (Auto) 0.12 K/uL (0-0.5) Basophils # (Auto) 0.07 K/uL (0-0.2) RDW Standard Deviation 41.7 fL (36.4-46.3) RDW Coefficient of Variation 12.7 % (11.5-14.5) Immature Granulocyte % (Auto) 0.1 % Immature Granulocyte # (Auto) 0.01 K/uL (0.00-0.02) Prothrombin Time 10.4 SECONDS (9.0-12.0) Prothromb Time International Ratio 1.0 (0.9-1.1) Activated Partial Thromboplast Time 25.5 SECONDS (21.0-31.0) Partial Thromboplastin Ratio 1.0 Anion Gap 5.0 mmol/L (3-11) Est Creatinine Clear Calc Drug Dose 69.0 ml/min Estimated GFR () 84.9 Estimated GFR (Non- 73.3 BUN/Creatinine Ratio 11.1 (10-20) Calcium Level 8.9 mg/dl (8.5-10.1) Magnesium Level 2.2 mg/dl (1.8-2.4) Total Creatine Kinase 72 U/L (26-192) Creatine Kinase MB < 0.5 ng/ml (0.5-3.6) Creatine Kinase MB Ratio (0-3.0) Troponin I < 0.015 ng/ml (0-0.045) Laboratory results per my review. Medications Administered Medications (Trade) Dose Ordered Sig/Shay Route Start Time Stop Time Status Last Admin Dose Admin Sodium Chloride 1,000 ml @ 50 mls/hr Q20H IV 08/06/17 10:43 08/06/17 13:52 DC 08/06/17 11:20 50 MLS/HR Aspirin (Aspirin Chew) 81 mg NOW STAT PO 08/06/17 11:33 08/06/17 11:34 DC 08/06/17 11:53 81 MG Sodium Chloride 1,000 ml @ 999 mls/hr Q1H1M STAT IV 08/06/17 11:33 08/06/17 12:33 DC 08/06/17 11:53 999 MLS/HR Ketorolac Tromethamine (Toradol Inj) 30 mg NOW STAT IV 08/06/17 11:54 08/06/17 11:55 DC 08/06/17 12:02 30 MG Diphenhydramine HCl (Benadryl Inj) 50 mg NOW STAT IV 08/06/17 11:54 08/06/17 11:55 DC 08/06/17 12:03 50 MG Prochlorperazine Edisylate (Compazine Inj) 5 mg NOW STAT IV 08/06/17 11:54 08/06/17 11:55 DC 08/06/17 12:02 5 MG ECG Indication: other (TIA) Rate (beats per minute): 93 Rhythm: normal sinus Findings: nonspecific-ST abn (Inferior), other (Normal axis) ED Course ED COURSE: Vital signs were reviewed and showed tachycardia The patients medical record was reviewed The above diagnostic studies were performed and reviewed. ED treatments and interventions as stated above. 1035: The patient was evaluated in room A3. A complete history and physical examination was performed. 1043: Sodium Chloride 1000 ml @ 50 mls/hr IV 1133: Tylenol Tab 1000mg PO, Sodium Chloride 1000 ml @ 999 mls/hr IV, Aspirin 81mg PO 1152: I reassessed the patient and she is complaining of a migraine. I requested medication. 1154: Compazine Ing 5mg IV, Benadryl Inj 50mg IV, Toradol Inj 30mg IV 1210: Upon reevaluation, the patient will be further evaluated. I discussed my findings with the patient and she understands and agrees with the treatment plan. Based on the patients age, coexisting illnesses, exam and lab findings the decision to treat as an inpatient was made. The patient remained stable while under my care. The patient will be evaluated for further management. Medical Decision Differential Diagnosis includes but is not limited to ischemic Stroke, hemorrhagic stroke, bells palsy, mass, neoplasm, migraine headache, seizure, subarachnoid hemorrhage, TIA, and transient global amnesia. Patient is a 47-year-old female who presents to ER for 30 minutes following the start of paresthesias on her right side associated with weakness. She has a history of possible TIA and PEs from factor V Leiden. She missed 2 doses of her anticoagulation dose this weekend. Upon initial evaluation she had a functional component of her weakness. She did have slight weakness of the right upper extremity but when asked to initially extend at the right arm she could not do this. I then asked her to perform drift and she was able to extend at the elbow on the right which 2 seconds before she was not. She was slightly weak with grasp. Head was unremarkable. She is admitted by [place] [facility] as a stroke alert was called. BMP all his troponin was negative. INR was unremarkable. EKG nondiagnostic. Chest x-ray unremarkable. Discussed with neurology following their evaluation they do not believe that she is a TPA candidate and I agree. Following this she started to have a headache. She notes this feels exactly like her previous migraines. She requested thought it , Phenergan, and Benadryl. I informed her that this would be too sedating with her possible TIA. She was given aspirin Tylenol. Following this she was given fluids, Benadryl, Compazine and Toradol. She had improvement of her symptoms. She was admitted to internal medicine for further workup. Medication Reconcilliation Current Medication List: was personally reviewed by me Blood Pressure Screening Patient's blood pressure: Normal blood pressure Blood pressure disposition: Did not require urgent referral Consults Time Called: 1129 Consulting Physician: Dr. Reina Gary - [facility] Returned Call: 1154 I reviewed the patient's case with Dr Reina Gary, Neurologist from [facility]. He will evaluate the patient and does not believe TPA is necessary. Patient will continue to be evaluated for further management. Additional Consults: Time Called: 1200 Consulted Physician: Dr. Arnol ACKERMAN Returned Call: 1202 Additional Comments: I reviewed the patient's case with Dr. Ambrose. AMANDAG will evaluate the patient for further management. Impression Primary Impression: TIA (transient ischemic attack) Additional Impressions: Paresthesia of right upper and lower extremity Migraine Scribe Attestation The scribe's documentation has been prepared under my direction and personally reviewed by me in its entirety. I confirm that the note above accurately reflects all work, treatment, procedures, and medical decision making performed by me. Departure Information Dispostion Being Evaluated By Hospitalist Referrals Alex Anders M.D. (PCP) Forms HOME CARE DOCUMENTATION FORM, IMPORTANT VISIT INFORMATION Patient Instructions My [facility] Problem Qualifiers Primary Impression: TIA (transient ischemic attack) Transient cerebral ischemia type: unspecified Qualified Codes: G45.9 - Transient cerebral ischemic attack, unspecified Additional Impressions: Migraine Migraine type: unspecified Status migrainosus presence: without status migrainosus Intractability: not intractable Qualified Codes: G43.909 - Migraine, unspecified, not intractable, without status migrainosus
--- NOTE | 2017-08-06 16:37 | NUR ---
A: Patient resting in room. Denies CP or SOB. Verbalizes headache /10. medication administered. VSS. Lungs clear on room. Bowel sounds WNL. Tolerating diet. OOB independently. Skin intact. Call mcgee within reach. Verbalizes no needs at this time.
[2017-08-06] MEDS ORDERED: GADAVIST IV PRN (16:45)
--- NOTE | 2017-08-06 16:59 | DIAGNOSTIC IMAGING REPORT ---
MRA HEAD WITHOUT CONTRAST, MRA NECK COMBO, BRAIN COMBO CLINICAL HISTORY: 47 years-old Female presenting with concern for stroke, right-sided numbness and weakness dizziness, migraine, history of TIA and PE, factor V Leiden?. TECHNIQUE: MRA HEAD WITHOUT CONTRAST, MRA NECK COMBO, BRAIN COMBO CLINICAL HISTORY: 47 years-old Female presenting with Stroke - Attention to [place]. TECHNIQUE: Multisequence, multiplanar MR imaging of the brain was performed before and after the administration of intravenous contrast. Additionally, MR angiography of the head was performed without the use of intravenous contrast using 3-D [id number] technique. Also, MR angiography of the neck was performed before and after the administration of intravenous contrast. 3-D volumetric and/or maximum intensity projection (MIP) images were subsequently reconstructed for review. IV contrast: 6.5 mL of Gadavist. COMPARISON: CT head performed earlier the same day and brain MR from 10/10/2014. FINDINGS: MR BRAIN: Ventricles and sulci normal in size. Brain parenchyma normal in appearance with preserved domínguez-white differentiation. No mass effect or midline shift. No restricted diffusion to suggest acute ischemia. No hemorrhage. No extra-axial fluid collection. T2 skull base flow voids preserved. No abnormal parenchymal enhancement. Bone marrow signal intensity within the calvarium within normal limits. Mucosal thickening in the right maxillary sinus. MRA HEAD: Anterior circulation demonstrates patent intracranial portions of the internal carotid arteries. Hypoplastic A1 segment of the left anterior cerebral artery. Bilateral anterior middle cerebral arteries patent. Anterior communicating artery grossly patent. Posterior circulation demonstrates codominant vertebral arteries. Patent intracranial portions of the vertebral arteries. Patent basilar, posterior inferior cerebellar, left anterior inferior cerebellar, superior cerebellar, and posterior cerebral arteries. The right anterior inferior cerebral artery is patent but diminutive. Patent left posterior communicating artery. The right posterior communicating artery is hypoplastic. No focal occlusion, significant stenosis, or evidence of aneurysm. MRA NECK: Three-vessel aortic arch with patent origins of the branch vessels. Bilateral common and internal carotid arteries widely patent. Codominant vertebral arteries with patent origins and courses. No evidence of dissection, focal vessel occlusion, or significant stenosis. Artifactual signal loss at the carotid bulbs. IMPRESSION: 1. No acute intracranial pathology. 2. No focal occlusion, significant stenosis, or evidence of aneurysm in the intracranial arteries. 3. No evidence of dissection, focal vessel occlusion, or significant stenosis of the cervical arteries. Electronically signed by: Kervin Jalloh M.D. 08/06/2017 4:57 PM Dictated Date/Time: 08/06/2017 4:46 PM
--- NOTE | 2017-08-06 17:12 | DIAGNOSTIC IMAGING REPORT ---
BILATERAL LOWER EXTREMITY VENOUS DOPPLER HISTORY: Lower extremity swelling with concern for DVT h/o DVT/PE,here with CVA, r/o DVT COMPARISON STUDY: Duplex study 07/20/2010. FINDINGS: There is normal compressibility, flow, and augmentation within the bilateral lower extremity deep venous systems. IMPRESSION: No sonographic evidence of deep venous thrombosis within the right or left lower extremity. Electronically signed by: Roni Barkley M.D. 08/06/2017 5:10 PM Dictated Date/Time: 08/06/2017 5:09 PM
[2017-08-06] MEDS: PROMETHAZINE HCL INJ 25 MG in SODIUM CHLORIDE 0.9% 50ML 50 ML IV PRN (17:13)
[2017-08-06] MEDS: KETOROLAC TROMETHAMINE 15 MG/ML VIAL IV PRN (17:18)
[2017-08-06] MEDS: APIXABAN 2.5 MG TAB PO SCH (20:30)
[2017-08-06] MEDS: HYDROmorphone INJ 0.5 MG/0.5 ML SYR IV PRN ×2 (20:31→23:55)
[2017-08-06] MEDS ORDERED: TRAZODONE HCL 50 MG TAB PO SCH (21:00)
[2017-08-06] MEDS ORDERED: VERAPAMIL HCL 120 MG TABCR PO SCH (21:00)
[2017-08-06] MEDS ORDERED: ESCITALOPRAM OXALATE 10 MG TAB PO SCH (21:00)
[2017-08-06] MEDS ORDERED: RISPERIDONE 1 MG TAB PO SCH (21:00)
--- NOTE | 2017-08-06 21:14 | History and Physical ---
History & Physical Date & Time of Service: Aug 06, 2017 at 12:55 Chief Complaint: Right Sided Numbness Primary Care Physician: Alex Anders M.D. History of Present Illness Source: patient, family This patient is a 47-year-old female with a history of factor V Leiden deficiency, DVT/PEs, migraine headaches, bipolar disorder, anxiety disorder, orthostatic hypotension, thyroid nodule, hypertriglyceridemia, insomnia, aortic insufficiency, mitral regurgitation, and a previous suspected TIA with right- sided numbness and weakness, who presents to the ER with acute onset at work today of right-sided numbness and weakness. She reports she was sitting at her desk and felt like she was in a fog and then the right side of her body but mostly her arm went numb and felt weak. She is very anxious about this and tearful at times, is concerned about the cause of her symptoms. In the ER, she developed a migraine headache which was like her typical migraines that she gets 3-4 times per month. The pain was a 7 out of 10 and severe in the posterior occiput radiating to the bilateral temporal regions, was throbbing in nature, was associated with photophobia and phonophobia as well as nausea but no vomiting. She had a tele stroke consult from the ER but her NIH stroke score was low and her symptoms were deemed to mild to warrant tPA. It should be noted that she forgot to take her Eliquis for the last 3-1/2 days in a row. It was recommended that she come in though for a stroke workup. Past Medical/Surgical History Past Medical history: Factor V Leiden deficiency now on long-term anticoagulation with Eliquis History of DVT/PEs Migraine headaches Bipolar disorder Anxiety disorder Orthostatic hypotension Asthma Thyroid nodule Hypertriglyceridemia Insomnia Aortic insufficiency Mitral regurgitation Previous suspected TIA with right-sided numbness and weakness PSH: Breast augmentation LEEP D&C CARLOS with unilateral oophorectomy-performed for menorrhagia while on anticoagulation Liposuction Ovarian cystectomy Left rotator cuff repair 3 Left wrist cyst removal Family History Diabetes mellitus FH: NC (myocardial infarction) FH: heart disease Hypertension Thromboembolic disease Sr. 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[employer]) Immunizations History of Influenza Vaccine: N/A Influenza Vaccine Date: Aug 18, 2008 History of Tetanus Vaccine?: Yes Tetanus Immunization Date: Apr 08, 2013 History of Pneumococcal: Unknown History of Hepatitis B Vaccine: No Multi-Drug Resistant Organisms History of MDRO: No Allergies Coded Allergies: No Known Allergies (Unverified , 10/31/16) Home Medications Scheduled Amphetamine-Dextroamphetamine 20MG (Adderall Xr 20MG), 20 MG PO QAM Amphetamine-Dextroamphetamine 30MG (Adderall Xr 30MG), 30 MG PO QAM Apixaban (Eliquis), 5 MG PO BID Escitalopram Oxalate (Escitalopram Oxalate), 10 MG PO QAM Lamotrigine (Lamictal), 150 MG PO QPM Risperidone (Risperdal), 1 MG PO HS Scheduled PRN Albuterol Hfa (Ventolin Hfa), 1-2 PUFFS INH Q4-6HRS PRN for SOB/Wheezing Diclofenac Sodium (Topical) (Diclofenac Sodium), 1 APPLN TOP QID PRN for Pain Promethazine HCl (Promethazine HCl), 25 MG PO Q6H PRN for Nausea Sumatriptan Succinate (Imitrex), 100 MG PO UD PRN for Migraine Trazodone HCl (Trazodone HCl), 75 MG PO HS PRN for Insomnia Valacyclovir Hcl (Valtrex), 1,000 MG PO UD PRN for Outbreaks Review of Systems Constitutional: No fever, No chills Eyes: No worsening of vision ENT: No problem reported Respiratory: No problem reported Cardiovascular: No problem reported Abdomen: + nausea, No vomiting Musculoskeletal: No problem reported Genitourinary - Female: No problem reported Neurologic: + weakness, + numbness/tingling Psychiatric: + anxiety Endocrine: No problem reported Hematologic / Lymphatic: No problem reported Integumentary: No problem reported Allergic / Immunologic: No problem reported Physical Exam Vital Signs Date Time Temp Pulse Resp B/P (MAP) Pulse Ox O2 Delivery O2 Flow Rate FiO2 08/06/17 12:51 82 16 117/74 100 Room Air 08/06/17 11:06 101 20 121/84 97 Room Air 08/06/17 10:38 99 08/06/17 10:35 99 Room Air 08/06/17 10:26 36.4 107 18 121/76 100 Room Air General Appearance: WD/WN, no apparent distress (but was anxious) Head: normocephalic, atraumatic Eyes: normal inspection, PERRL, EOMI, sclerae normal ENT: hearing grossly normal, pharynx normal Neck: supple, no adenopathy, trachea midline Respiratory/Chest: lungs clear, normal breath sounds, no respiratory distress, no accessory muscle use Cardiovascular: regular rate, rhythm, no edema, no gallop, no JVD, no murmur, normal peripheral pulses Abdomen/GI: normal bowel sounds, non tender, soft, no organomegaly, no pulsatile mass Back: normal inspection Extremities/Musculoskelatal: normal inspection, no calf tenderness, normal capillary refill, no pedal edema, normal range of motion Neurologic/Psych: linen sorter II-XII nml as tested (except says she has decreased sensation to light touch in the right V2 and V3 distribution), alert, normal reflexes (2+ throughout upper and lower extremities and symmetric), oriented x 3 , + depressed affect, + pertinent finding (strength is with intermittent weakness and gives way on exam on the right side in the upper and lower extremities throughout, negative pronator drift in arms and legs bilaterally, sensation is decreased to light touch throughout entire right upper extremity and right lower extremity) Skin: normal color, warm/dry, no rash Lymphatic: no adenopathy Diagnostics Laboratory Results Results Past 24 Hours Test 08/06/17 11:06 Range/Units White Blood Count 12.38 4.8-10.8 K/uL Red Blood Count 4.47 4.2-5.4 M/uL Hemoglobin 13.9 12.0-16.0 g/dL Hematocrit 40.7 37-47 % Mean Corpuscular Volume 91.1 80-100 fL Mean Corpuscular Hemoglobin 31.1 25-34 pg Mean Corpuscular Hemoglobin Concent 34.2 32-36 g/dl Platelet Count 361 130-400 K/uL Mean Platelet Volume 9.6 7.4-10.4 fL Neutrophils (%) (Auto) 79.5 % Lymphocytes (%) (Auto) 13.3 % Monocytes (%) (Auto) 5.5 % Eosinophils (%) (Auto) 1.0 % Basophils (%) (Auto) 0.6 % Neutrophils # (Auto) 9.85 1.4-6.5 K/uL Lymphocytes # (Auto) 1.65 1.2-3.4 K/uL Monocytes # (Auto) 0.68 0.11-0.59 K/uL Eosinophils # (Auto) 0.12 0-0.5 K/uL Basophils # (Auto) 0.07 0-0.2 K/uL RDW Standard Deviation 41.7 36.4-46.3 fL RDW Coefficient of Variation 12.7 11.5-14.5 % Immature Granulocyte % (Auto) 0.1 % Immature Granulocyte # (Auto) 0.01 0.00-0.02 K/uL Prothrombin Time 10.4 9.0-12.0 SECONDS Prothromb Time International Ratio 1.0 0.9-1.1 Activated Partial Thromboplast Time 25.5 21.0-31.0 SECONDS Partial Thromboplastin Ratio 1.0 Sodium Level 136 136-145 mmol/L Potassium Level 3.6 3.5-5.1 mmol/L Chloride Level 106 98-107 mmol/L Carbon Dioxide Level 25 21-32 mmol/L Anion Gap 5.0 3-11 mmol/L Blood Urea Nitrogen 10 7-18 mg/dl Creatinine 0.94 0.60-1.20 mg/dl Est Creatinine Clear Calc Drug Dose 69.0 ml/min Estimated GFR () 84.9 Estimated GFR (Non- 73.3 BUN/Creatinine Ratio 11.1 10-20 Random Glucose 96 70-99 mg/dl Calcium Level 8.9 8.5-10.1 mg/dl Magnesium Level 2.2 1.8-2.4 mg/dl Total Creatine Kinase 72 26-192 U/L Creatine Kinase MB < 0.5 0.5-3.6 ng/ml Creatine Kinase MB Ratio 0-3.0 Troponin I < 0.015 0-0.045 ng/ml Diagnostic Radiology CT head negative Chest x-ray negative EKG ECG with normal sinus rhythm, nonspecific T wave changes in aVL, not changed from previous Impression Assessment and Plan This patient is a 47-year-old female with a history of factor V Leiden deficiency, DVT/PEs, migraine headaches, bipolar disorder, anxiety disorder, orthostatic hypotension, thyroid nodule, asthma, hypertriglyceridemia, insomnia , aortic insufficiency, mitral regurgitation, and a previous suspected TIA with right-sided numbness and weakness, who presents to the ER with acute onset at work today of right-sided numbness and weakness. She reports she was sitting at her desk and felt like she was in a fog and then the right side of her body but mostly her arm went numb and felt weak. She is very anxious about this and tearful at times, is concerned about the cause of her symptoms. In the ER, she developed a migraine headache which was like her typical migraines that she gets 3-4 times per month. The pain was a 7 out of 10 and severe in the posterior occiput radiating to the bilateral temporal regions, was throbbing in nature, was associated with photophobia and phonophobia as well as nausea but no vomiting. She had a tele stroke consult from the ER but her NIH stroke score was low and her symptoms were deemed to mild to warrant tPA. It should be noted that she forgot to take her Eliquis for the last 3-1/2 days in a row. It was recommended that she come in though for a stroke workup. Right-sided numbness and subjective weakness/migraine headache-given history of factor V Leiden deficiency which usually causes venous thromboses, will check echo with bubble study to rule out PFO, Dopplers of the lower extremities to rule out DVT, and MRI/MRA of the brain and head and neck to rule out stroke and vascular malformation. If this is negative, suspect complex migraine as the cause of her symptoms. Her previous "TIA" may have also been a complex migraine. -Admit to telemetry -Continue aspirin daily until stroke is ruled out, I will restart her Eliquis which she has not taken in 3 days -Check MRI range and, MRA of head and neck, echocardiogram with bubble study -Check Doppler of the lower extremities bilaterally -Neurology consultation requested-I discussed the case in detail on the phone with Dr. Lockhart today-he suggested starting verapamil for migraine prophylaxis if her workup for stroke is negative -Neuro checks every 2 hours -PT/OT/speech therapy consultations -Ordered high intensity statin but will discontinue if no stroke on MRI -For her migraine, we'll continue IV Phenergan/IV Benadryl/IV Toradol combination, we'll also give magnesium sulfate 1 g IV over 1 hour -Dilaudid IV when necessary severe headache pain as per patient's request Factor V Leiden deficiency-with history of DVT/PE -Restart her Eliquis 5 mg by mouth twice a day Bipolar disorder/anxiety/insomnia-exacerbated anxiety by her current medical condition -Continue home trazodone, Risperdal, Lexapro, and Lamictal -Holding her home Adderall AI/MR-checking repeat echocardiogram at this time, no significant murmur on exam. Orthostatic hypotension-patient has concerns about starting verapamil do to her history of this -Follow blood pressures and will hold off on starting verapamil at this time History of thyroid nodule-has had ultrasound in 2014 which showed a 3 mm nodule , TSH was normal earlier this year -Follow up with PCP Asthma-no exacerbation at this time Prophylaxis-Eliquis, SCDs Disposition-to home likely tomorrow when symptoms resolve and after PT/OT consultations Full code Level of Care Telemetry Resuscitation Status FULL RESUSCITATION VTE Prophylaxis VTE Risk Assessment Done? Y/N: Yes Risk Level: High Given or contraindicated: Other Anticoagulation (Eliquis) Additional Copies To ,Alex Deng M.D.
[2017-08-06] MEDS: ONDANSETRON INJ 2 MG/ML 2 ML VIAL IV PRN (23:55)
[2017-08-07] VITALS (11 sets, daily range): BP systolic 92–97; BP diastolic 53–64; PULSE 85–95; TEMP 36.4–37.4; O2SAT 92–99
--- NOTE | 2017-08-07 | NUR ---
OBS: Pt alert and oriented. Assessment completed, complains of migraine. PRN Dilaudid and Zofran given. Ind in room with no complications, encouraged to ring for assistance. NSR noted on monitor, no tele events. VSS on RA. Will continue to monitor.
[2017-08-07] MEDS: PROMETHAZINE HCL INJ 25 MG in SODIUM CHLORIDE 0.9% 50ML 50 ML IV PRN (02:42)
[2017-08-07] MEDS: HYDROmorphone INJ 0.5 MG/0.5 ML SYR IV PRN ×2 (02:42→09:46)
--- NOTE | 2017-08-07 04:00 | NUR ---
A: Pt alert and oriented. VSS on RA. Pain controlled at this time. Pt appears in no distress. Assessment unchanged. IVF infusing. NSR on the monitor, no tele events noted. Will continue to monitor.
--- NOTE | 2017-08-07 05:45 | NUR ---
OBS: Pt continues to ring for staff d/t ineffective pain management. Pt consistently demanding IV Dilaudid in combination with IV Phenergan for continued headache. Staff educated pt on the use of IV narcotics and recommended trying Tylenol or Toradol d/t possible d/c. Pt refusing Tylenol and/or Toradol at this time, stating that they are ineffective. Will continue to monitor.
[2017-08-07 06:21] LABS: BASO % 0.9 %; BASO ABS # 0.07 K/uL (0-0.2); EOS % 3.7 %; EOS ABS # 0.28 K/uL (0-0.5); HEMATOCRIT 37.8 % (37-47); HEMOGLOBIN 12.7 g/dL (12.0-16.0); IG# 0.02 K/uL (0.00-0.02); LYMPH % 33.7 %; LYMPH ABS # 2.57 K/uL (1.2-3.4); MEAN CELL VOLUME 92.6 fL (80-100); MEAN CORPUSCULAR HEMOGLOBIN 31.1 pg (25-34); MEAN CORPUSCULAR HGB CONC 33.6 g/dl (32-36); MEAN PLATELET VOLUME 9.5 fL (7.4-10.4); MONO % 7.2 %; MONO ABS # 0.55 K/uL (0.11-0.59); NEUT % 54.2 %; NEUT ABS # 4.13 K/uL (1.4-6.5); PLATELET COUNT 319 K/uL (130-400); RED CELL DISTRIBUTION WIDTH CV 12.9 % (11.5-14.5); RED CELL DISTRIBUTION WIDTH SD 43.6 fL (36.4-46.3); WHITE BLOOD COUNT 7.62 K/uL (4.8-10.8)
[2017-08-07] MEDS: KETOROLAC TROMETHAMINE 15 MG/ML VIAL IV PRN (06:25)
[2017-08-07 07:04] LABS: CALCIUM 8.2 mg/dl (8.5-10.1); CREATININE 0.88 mg/dl (0.60-1.20); POTASSIUM 3.9 mmol/L (3.5-5.1)
[2017-08-07 07:13] LABS: HEMOGLOBIN A1C 5.3 % (4.5-5.6)
--- NOTE | 2017-08-07 08:00 | NUR ---
a:alert and oriented x 4. lungs are clear and pt is on RA with SPo2 96%. heart rate regular and wnl, however BP slightly decreased 97/64, patient states this is normal for her. lungs are clear, heart rate is regular with Normal sinus rhythm at this time. Ortho BP taken are recorded. abdomen is soft, nontender, nondistended with positive bowel sounds. IV Normal Saline is running at 100 cc/hr. Pt stated she always has low BP. resting in bed at this time. consumed 25%of her breakfast and tolerated it well. continent of bowel and bladder.
--- NOTE | 2017-08-07 08:57 | Neurology Consultation ---
Neurology Consultation Date of Consultation: Aug 07, 2017. Attending Physician: Adenike Ambrose MD Primary Care Physician: Alex Anders M.D. Reason for Consultation: Strokelike episode, migraine History of Present Illness Source: patient, hospital records The patient is a 47-year-old female presented to the emergency department yesterday complaining of right-sided weakness and numbness, primarily the right upper limb, which began about 30 minutes prior to arrival. Her symptoms were potentially worrisome for acute stroke. A CT of the head was unremarkable. A tele-stroke consultation with [facility] was obtained. TPA was not administered as this patient's neurologic deficits were felt to be very mild. Furthermore, while in the emergency department the patient developed a significant migrainous headache with associated light and sound sensitivity as well as some nausea. She has a history of episodic migraines, about 3-5 episodes per month for which she typically uses Imitrex. Past medical history also notable for DVT, pulmonary embolism, and factor V Leiden gene mutation. She is prescribed Eliquis although admits to missing a few doses of this medication within the past week. The patient recalls having a similar episode of unilateral weakness in the past which was felt to be possibly consistent with TIA. This morning, the patient reports that her headache is modestly improved compared with yesterday. She denies significant light or sound sensitivity or nausea at this time. She denies any change in vision. She continues to report a vague feeling of numbness affecting the right upper limb but denies any weakness. I reviewed the images as well as the radiologist's interpretation of the recently completed brain MRI. The study is unremarkable. No evidence of acute or subacute stroke. No evidence of demyelinating disease or other significant abnormalities. MR angiography of the head and neck have also been completed. No significant vascular lesions seen. Electrocardiogram reveals a sinus rhythm, 98 bpm. Past Medical/Surgical History Medical Problems: (1) Anticoagulants,Lt,Current Use Status: Chronic (2) Anxiety State Nos Status: Chronic (3) Asthma Status: Chronic (4) Asthma, Unspecified Status: Chronic (5) Chest wall pain Status: Acute (6) Depressive Disorder Nec Status: Chronic (7) Factor V Leiden Status: Chronic (8) Headache Status: Acute (9) Headache Status: Acute (10) History of pulmonary embolus (PE) Status: Chronic (11) Hyperlipidemia Status: Chronic (12) Injury of left hand Status: Acute (13) Non-cardiac chest pain Status: Acute (14) Noncompliance with medications Status: Acute (15) Orthostatic hypotension Status: Acute (16) Oth Forms Migraine W/O Intract Mgrn W/O Status Migrainosus Status: Chronic (17) Paresthesia of right upper and lower extremity Status: Acute (18) Pneumonia Status: Acute (19) Subtherapeutic anticoagulation Status: Acute (20) TIA (transient ischemic attack) Status: Acute Family History Father: pertinent history of Sibling(s): pertinent history of Social History Smoking Status: Never smoker Alcohol Use: occasionally Drug Use: none Marital Status: Housing Status: lives with family 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[employer]) Allergies Coded Allergies: No Known Allergies (Unverified , 10/31/16) Current Inpatient Medications Current Inpatient Medications Medications (Trade) Dose Ordered Sig/Shay Route Start Time Stop Time Status Last Admin Dose Admin Miscellaneous Information (Pharmacist Discharge Med Rec Consult) 1 ea UD PRN N/A 08/06/17 12:45 09/05/17 12:44 Sodium Chloride 1,000 ml @ 100 mls/hr Q10H IV 08/06/17 14:00 09/05/17 13:59 08/06/17 23:51 100 MLS/HR Acetaminophen (Tylenol Tab) 650 mg Q4H PRN PO 08/06/17 12:45 09/05/17 12:44 Ondansetron HCl (Zofran Inj) 4 mg Q6H PRN IV 08/06/17 12:45 09/05/17 12:44 08/06/17 23:55 4 MG Albuterol (Ventolin Hfa Inhaler) 2 puffs Q4H PRN INH 08/06/17 13:00 09/05/17 12:59 Escitalopram Oxalate (Lexapro Tab) 10 mg HS PO 08/06/17 21:00 09/05/17 20:59 08/06/17 20:30 10 MG Lamotrigine (Lamictal Tab) 150 mg QPM PO 08/06/17 21:00 09/05/17 20:59 08/06/17 20:30 150 MG Risperidone (Risperdal Tab) 1 mg HS PO 08/06/17 21:00 09/05/17 20:59 08/06/17 20:30 1 MG Trazodone HCl (Desyrel Tab) 150 mg HS PO 08/06/17 21:00 09/05/17 20:59 08/06/17 20:30 150 MG Promethazine HCl 25 mg/Sodium Chloride 51 ml @ 204 mls/hr Q6H PRN IV 08/06/17 13:00 09/05/17 12:59 08/07/17 02:42 204 MLS/HR Diphenhydramine HCl (Benadryl Inj) 25 mg Q6H PRN IV 08/06/17 13:00 09/05/17 12:59 08/06/17 17:15 25 MG Ketorolac Tromethamine (Toradol Inj) 15 mg Q6H PRN IV 08/06/17 13:00 08/11/17 12:59 08/07/17 06:25 15 MG Apixaban (Eliquis Tab) 5 mg BID PO 08/06/17 21:00 09/05/17 20:59 08/06/17 20:30 5 MG Miscellaneous (Iv Fluids Completed) 1 ea PRN PRN N/A 08/06/17 14:00 08/06/18 13:59 Hydromorphone HCl (Dilaudid Inj) 0.5 mg Q2H PRN IV 08/06/17 15:45 08/20/17 15:44 08/07/17 02:42 0.5 MG Gadobutrol (Gadavist) 6.5 mmol UD PRN IV 08/06/17 16:45 08/10/17 16:44 Review of Systems Constitutional: No fever or chills Cardiovascular: No chest pain or palpitations Respiratory: No coughing wheezing or shortness of breath Neurological: As per history of present illness Physical Exam Vital Signs (Past 24 Hrs): Date Time Temp Pulse Resp B/P (MAP) Pulse Ox O2 Delivery O2 Flow Rate FiO2 08/07/17 08:01 97 Room Air 08/07/17 07:07 36.5 88 18 93/60 (71) 96 Room Air 08/07/17 06:15 92 20 93/53 (66) 95 Room Air 08/07/17 04:33 36.8 86 16 95/53 (67) 92 Room Air 08/07/17 04:00 97 Room Air 08/07/17 00:00 97 Room Air 08/06/17 23:55 36.8 97 18 112/71 (85) 92 Room Air 08/06/17 20:12 97 Room Air 08/06/17 19:53 36.8 97 18 109/71 (84) 92 Room Air 08/06/17 19:01 36.9 86 16 118/81 (93) 97 Room Air 08/06/17 18:01 36.8 77 16 123/74 (90) 97 Room Air 08/06/17 17:01 36.9 78 16 128/74 (92) 97 Room Air 08/06/17 16:25 97 Room Air 08/06/17 16:01 36.7 86 16 119/80 (93) 97 Room Air 08/06/17 15:00 36.7 86 16 119/80 (93) 97 Room Air 08/06/17 14:07 36.7 86 16 119/80 97 Room Air 08/06/17 13:39 90 16 109/72 100 08/06/17 12:51 82 16 117/74 100 Room Air 08/06/17 11:06 101 20 121/84 97 Room Air 08/06/17 10:38 99 08/06/17 10:35 99 Room Air 08/06/17 10:26 36.4 107 18 121/76 100 Room Air The patient is a well-developed, well-nourished, middle-aged female. She is lying comfortably in bed, no acute distress. She is alert and fully oriented. Recent and remote memory intact. Attention and concentration normal. Patient exhibits a normal spontaneous speech pattern as well as an age-appropriate fund of knowledge. Visual garcia full to confrontation. Visual acuity normal. Pupils equal round reactive to light and accommodation. Eye movements normal. Facial sensation intact. There is no facial weakness or facial droop. Hearing intact. Palate elevates to midline. Shoulder shrug strength intact. Tongue protrudes to midline. Sensation intact to light touch, temperature, vibration, and proprioception in all 4 limbs. Deep tendon reflexes are intact and symmetrical for the arms and legs. Plantar responses downgoing bilaterally. There is no dysdiadochokinesia or dysmetria with finger to nose or heel to crowley bilaterally. Patient exhibits normal muscle strength and tone for all 4 limbs. No atrophy. No abnormal movements observed. Laboratory Results Past 24 Hours: 08/07/17 05:23 Red Blood Count 4.08, Mean Corpuscular Volume 92.6, Mean Corpuscular Hemoglobin 31.1, Mean Corpuscular Hemoglobin Concent 33.6, Mean Platelet Volume 9.5, Neutrophils (%) (Auto) 54.2, Lymphocytes (%) (Auto) 33.7, Monocytes (%) (Auto) 7.2, Eosinophils (%) (Auto) 3.7, Basophils (%) (Auto) 0.9, Neutrophils # (Auto) 4.13, Lymphocytes # (Auto) 2.57, Monocytes # (Auto) 0.55, Eosinophils # (Auto) 0.28, Basophils # (Auto) 0.07 08/07/17 05:23 Test 08/06/17 10:51 08/06/17 11:06 08/07/17 05:23 Bedside Prothrombin Time INR 1.0 (0.9-1.1) Bedside Glucose 98 mg/dl (70-90) Prothrombin Time 10.4 SECONDS (9.0-12.0) Prothromb Time International Ratio 1.0 (0.9-1.1) Activated Partial Thromboplast Time 25.5 SECONDS (21.0-31.0) Partial Thromboplastin Ratio 1.0 Magnesium Level 2.2 mg/dl (1.8-2.4) Total Creatine Kinase 72 U/L (26-192) Creatine Kinase MB < 0.5 ng/ml (0.5-3.6) Creatine Kinase MB Ratio (0-3.0) Troponin I < 0.015 ng/ml (0-0.045) White Blood Count 7.62 K/uL (4.8-10.8) Red Blood Count 4.08 M/uL (4.2-5.4) Hemoglobin 12.7 g/dL (12.0-16.0) Hematocrit 37.8 % (37-47) Mean Corpuscular Volume 92.6 fL (80-100) Mean Corpuscular Hemoglobin 31.1 pg (25-34) Mean Corpuscular Hemoglobin Concent 33.6 g/dl (32-36) Platelet Count 319 K/uL (130-400) Mean Platelet Volume 9.5 fL (7.4-10.4) Neutrophils (%) (Auto) 54.2 % Lymphocytes (%) (Auto) 33.7 % Monocytes (%) (Auto) 7.2 % Eosinophils (%) (Auto) 3.7 % Basophils (%) (Auto) 0.9 % Neutrophils # (Auto) 4.13 K/uL (1.4-6.5) Lymphocytes # (Auto) 2.57 K/uL (1.2-3.4) Monocytes # (Auto) 0.55 K/uL (0.11-0.59) Eosinophils # (Auto) 0.28 K/uL (0-0.5) Basophils # (Auto) 0.07 K/uL (0-0.2) RDW Standard Deviation 43.6 fL (36.4-46.3) RDW Coefficient of Variation 12.9 % (11.5-14.5) Immature Granulocyte % (Auto) 0.3 % Immature Granulocyte # (Auto) 0.02 K/uL (0.00-0.02) Anion Gap 3.0 mmol/L (3-11) Est Creatinine Clear Calc Drug Dose 74.4 ml/min Estimated GFR () 92.0 Estimated GFR (Non- 79.3 BUN/Creatinine Ratio 10.3 (10-20) Estimated Average Glucose 105 mg/dl Hemoglobin A1c 5.3 % (4.5-5.6) Calcium Level 8.2 mg/dl (8.5-10.1) Triglycerides Level 122 mg/dl (0-150) Cholesterol Level 122 mg/dl (0-200) HDL Cholesterol 42 mg/dl LDL Cholesterol, Calculated 56 mg/dl VLDL Cholesterol, Calculated 24 mg/dl Cholesterol/HDL Ratio 2.9 Impression Complex migraine. Improving. Intact neurological examination. Normal imaging of the brain as well as angiography of the head and neck. Initial presentation was potentially worrisome for stroke. However, her brain MRI and neurological examination are unremarkable in this regard. Plan As this patient continues to experience a moderate migrainous headache I think she would probably benefit from a one-time dose of IV Solu-Medrol, followed by a brief oral steroid taper which of course would be continued as an outpatient. I discussed the potential benefit of preventive medication for her migraines. Verapamil was ultimately declined as she has a history of orthostatic hypotension. I think a trial of topiramate would be reasonable although the patient would rather hold at this time. She may follow-up with me as an outpatient if she would like to pursue this treatment. Going forward, she may be able to continue to use her Imitrex for acute migraine treatment, assuming these migraines do not occur with associated strokelike symptoms. No further recommendations at this time. Thank you for the consult.
[2017-08-07] MEDS ORDERED: ASPIRIN 81 MG ECTAB PO SCH (09:00)
[2017-08-07] MEDS ORDERED: ATORVASTATIN 40 MG TAB PO SCH (09:00)
[2017-08-07] MEDS ORDERED: METHYLPREDNISOLONE IV 125 MG in SYRINGE 0 ML IV ONE (09:15)
[2017-08-07] MEDS: APIXABAN 2.5 MG TAB PO SCH (09:15)
[2017-08-07] MEDS: ONDANSETRON INJ 2 MG/ML 2 ML VIAL IV PRN (09:45)
[2017-08-07] MEDS: SODIUM CHLORIDE 0.9% 1000ML 1,000 ML IV SCH (09:53)
--- NOTE | 2017-08-07 10:12 | NUR ---
a: pt has stated she is having pain in her forehead and is refusing to go to cardiopulmonary at this time. She is medicated for pain and nausea (Zofran only). Notified Dr. Ambrose. Patient has stated, "I have to prepare for Dante, and we need to go for a viewing for her 's friend (Josie) had lost 2 sons in a house fire. I have started the migraines four years ago." Pt is having a headache (Migraine) now and refused to go to Cardiopulmonary for procedures. Dr. Ambrose aware. Will cont to monitor. VS.
--- NOTE | 2017-08-07 10:24 | NUR ---
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 Anders's office with Joanna Gage PA-C on August 14 at 1:00 pm. *If you need to change this appointment you can call the office at [phone]. Please, follow up at [facility]'s Neurology Office with Kellie Noe PA-C on FridaySeptember 02 at 10:00 am. *This office is located at [address] [place] [address] in [place]. If you need to change this appointment you can call the office at [phone]."
--- NOTE | 2017-08-07 12:00 | NUR ---
a:obs:resting at this time. sleeping and refusing lunch at this time. will cont to monitor.
--- NOTE | 2017-08-07 13:20 | NUR ---
a:pt has left the floor via wc with PCU staff to be transferred to Cardiopulmonary.
--- NOTE | 2017-08-07 13:45 | NUR ---
a:pt has now returned to the floor via wc with cardiopulmonary staff. monitor is on. Pt is requesting to be discharged to home today.
--- NOTE | 2017-08-07 14:13 | NUR ---
Discharge planning consult received. I spoke with the patient regarding discharge needs and explained role of case management. She states that she lives with her in their own home. She does not use any medical equipment, is independent with adl's and drives. She is employed at [employer]. She denies discharge needs at this time, her plan is to return home at discharge. Case management to follow for any changes.
[2017-08-07] MEDS ORDERED: LXP/20 PO (15:07)
[2017-08-07] MEDS ORDERED: PRD20 PO (15:07)
--- NOTE | 2017-08-07 15:11 | Discharge Instructions ---
Discharge Instructions Date of Service Aug 07, 2017. Admission Reason for Admission: Hemiparesis, Rule out stroke Discharge Discharge Diagnosis / Problem: Complex migraine Discharge Goals Goal(s): Improve disease control, Diagnostic testing, Therapeutic intervention Activity Recommendations Activity Limitations: resume your previous activity Lifting Limitations: none Exercise/Sports Limitations: gradually increase as tolerated May Resume Sexual Activity: when tolerated Shower/Bathe: no limitations Driving or Machine Use: no limitations . Instructions / Follow-Up Instructions / Follow-Up You were admitted with right sided weakness and numbness, along with a migraine headache. All of your studies came back normal-you did not have a stroke. You were seen by a Neurologist and it is thought that your symptoms were caused by a complex migraine. You were treated with steroids, phenergan, benadryl, and opioids with relief of your symptoms. Please finish out a course of prednisone over the next 6 days for your migraine. Please schedule a follow up appointment with Dr. Lockhart at the [facility] Neurology office within 1 months to further discuss migraine prevention treatment. Please follow up with your PCP as well within 1-2 weeks. Current Hospital Diet Patient's current hospital diet: Regular Diet Discharge Diet Recommended Diet: Regular Diet Procedures Procedures Performed: MRI Brain MRA Head/Neck Venous Doppler lower extremities bilaterally CT Head Chest xray Pending Studies Studies pending at discharge: no Laboratory Results Hemoglobin A1c Test 08/07/17 05:23 Range/Units Estimated Average Glucose 105 mg/dl Hemoglobin A1c 5.3 4.5-5.6 % Lipid Panel Test 08/07/17 05:23 Range/Units Triglycerides Level 122 0-150 mg/dl Cholesterol Level 122 0-200 mg/dl HDL Cholesterol 42 mg/dl Cholesterol/HDL Ratio 2.9 LDL Cholesterol, Calculated 56 mg/dl Medical Emergencies . Who to Call and When: Medical Emergencies: If at any time you feel your situation is an emergency, please call 911 immediately. . Non-Emergent Contact Non-Emergency issues call your: Primary Care Provider, Neurologist Call Non-Emergent contact if: you have a fever, your pain is not controlled, your pain is worsening, your pain is unusual for you, your pain is concerning you, you have any medication questions . . "Provider Documentation" section prepared by Adenike Ambrose. . VTE Core Measure Inpt VTE Proph given/why not?: Other Anticoagulation (Eliquis)
--- NOTE | 2017-08-07 15:22 | Discharge Summary ---
Discharge Summary Date of Service Aug 07, 2017. 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 Immunizations: Have You Had Influenza Vaccine: N/A Influenza Vaccine Date: Aug 18, 2008 History of Tetanus Vaccine?: Yes Tetanus Immunization Date: Apr 08, 2013 History of Pneumococcal: Unknown History of Hepatitis B Vaccine: No Procedures: MRI Brain MRA Head/Neck CT Head CXR Doppler Lower extremities bilat Consultations: Neurology Medication Reconciliation New Medications: Prednisone (Prednisone) 20 Mg Tab 60 MG PO DAILY, #12 TABS x 2 days then 40mg daily x 2 days then 20mg daily x 2 days then STOP Changed Medications: Escitalopram Oxalate (Escitalopram Oxalate) 20 Mg Tab 10 MG PO HS for 30 Days (Changed from: QAM) Continued Medications: Albuterol Hfa (Ventolin Hfa) 200 Puffs/14223 Mcg Aers 1-2 PUFFS INH Q4-6HRS PRN for SOB/Wheezing Amphetamine-Dextroamphetamine 20MG (Adderall Xr 20MG) 1 Cap Cap 20 MG PO QAM Amphetamine-Dextroamphetamine 30MG (Adderall Xr 30MG) 1 Cap Cap 30 MG PO QAM Apixaban (Eliquis) 5 Mg Tab 5 MG PO BID Diclofenac Sodium (Topical) (Diclofenac Sodium) 1 % Gel 1 APPLN TOP QID PRN for Pain APPLY DIRECTED TO AFFECTED AREA(S) Lamotrigine (Lamictal) 150 Mg Tab 150 MG PO QPM Promethazine HCl (Promethazine HCl) 25 Mg Tab 25 MG PO Q6H PRN for Nausea Risperidone (Risperdal) 0.5 Mg Tab 1 MG PO HS, TAB Sumatriptan Succinate (Imitrex) 100 Mg Tab 100 MG PO UD PRN for Migraine TAKE ONE TABLET AT ONSET OF MIGRAINE, MAY REPEAT DOSE AFTER 2 HOURS IF NEEDED Trazodone HCl (Trazodone HCl) 150 Mg Tab 75 MG PO HS PRN for Insomnia MAY REPEAT DOSE ONCE IF NEEDED Valacyclovir Hcl (Valtrex) 1 Gm Tab 1000 MG PO UD PRN for Outbreaks, TAB TAKE 2 TABLETS AT FIRST SIGN OF OUTBREAK, THEN 2 TABLETS EVERY 12 HOURS AFTER Discharge Exam Feeling much better this afternoon. Migraine headache is gone now, still some mild residual numbness in right hand and arm, but much improved. No numbness in RLE. Is ambulating around room without difficulties. Telemetry with all NSR in the 80s-90s Review of Systems: Constitutional: No fever Eyes: No problem reported ENT: No problem reported Respiratory: No problem reported Cardiovascular: No problem reported Abdomen: No problem reported Musculoskeletal: No problem reported Genitourinary - Female: No problem reported Neurologic: + numbness/tingling Psychiatric: No problem reported Endocrine: No problem reported Hematologic / Lymphatic: No problem reported Integumentary: No problem reported Physical Exam: General Appearance: WD/WN, no apparent distress Eyes: normal inspection, sclerae normal ENT: hearing grossly normal Neck: trachea midline Respiratory/Chest: lungs clear, normal breath sounds, no respiratory distress, no accessory muscle use Cardiovascular: regular rate, rhythm, no edema, no gallop, no murmur Abdomen / GI: normal bowel sounds Extremities: normal inspection Neurologic/Psychiatric: alert, normal mood/affect Skin: normal color, warm/dry, no rash Hospital Course This patient is a 47-year-old female with a history of factor V Leiden deficiency, DVT/PEs, migraine headaches, bipolar disorder, anxiety disorder, orthostatic hypotension, thyroid nodule, asthma, hypertriglyceridemia, insomnia , aortic insufficiency, mitral regurgitation, and a previous suspected TIA with right-sided numbness and weakness, who presents to the ER with acute onset at work today of right-sided numbness and weakness. She reports she was sitting at her desk and felt like she was in a fog and then the right side of her body but mostly her arm went numb and felt weak. She is very anxious about this and tearful at times, is concerned about the cause of her symptoms. In the ER, she developed a migraine headache which was like her typical migraines that she gets 3-4 times per month. The pain was a 7 out of 10 and severe in the posterior occiput radiating to the bilateral temporal regions, was throbbing in nature, was associated with photophobia and phonophobia as well as nausea but no vomiting. She had a tele stroke consult from the ER but her NIH stroke score was low and her symptoms were deemed to mild to warrant tPA. It should be noted that she forgot to take her Eliquis for the last 3-1/2 days in a row. It was recommended that she come in though for a stroke workup. Right-sided numbness and subjective weakness/migraine headache-given history of factor V Leiden deficiency which usually causes venous thromboses, was going to check echo with bubble study to rule out PFO (but had this in the past and was negative for PFO, so study cancelled here). Dopplers of the lower extremities to rule out DVT were done and were negative. MRI/MRA of the brain and head and neck to rule out stroke and vascular malformation were done and were normal. Diagnosed with complex migraine as the cause of her symptoms. Her previous "TIA " may have also been a complex migraine as well. No events on telemetry -Neurology consultation requested and recommended migraine prophylaxis-pt declined verapamil due to orthostatic hypotension which is reasonable. She was offered Topamax, but declined due to possible side effect of "brain fog." Wants to think about options and f/u with Neuro as an outpatient. Also, very concerned about her Psychiatrist being involved in the decision as she doesn't want anything to interfere with her Psych meds. -she did NOT have a CVA and therefore does not need to continue on ASA or high intensity statin. In fact, her lipid profile was excellent. -treated migraine with phenergan/benadryl/toradol IV prn and also IV dilaudid, as well as IV SOluMedrol 125mg x 1---> she will go home on short prednisone taper -f/u Neurology in 1 month as outpt Factor V Leiden deficiency-with history of DVT/PE-no evidence of DVT/PE this admission -Restarted her Eliquis 5 mg by mouth twice a day Bipolar disorder/anxiety/insomnia-exacerbated anxiety by her current medical condition on admission, now improved -Continue home trazodone, Risperdal, Lexapro, and Lamictal -restart Adderall on discharge AI/MR-checking repeat echocardiogram at this time, no significant murmur on exam. Orthostatic hypotension-patient has concerns about starting verapamil do to her history of this -Follow blood pressures and will hold off on starting verapamil at this time History of thyroid nodule-has had ultrasound in 2014 which showed a 3 mm nodule , TSH was normal earlier this year -Follow up with PCP Asthma-no exacerbation at this time Prophylaxis-Eliquis, SCDs Disposition-to home today Full code Total Time Spent: Greater than 30 minutes This includes examination of the patient, discharge planning, medication reconciliation, and communication with other providers. Discharge Instructions Please refer to the electronic Patient Visit Report (Discharge Instructions) for additional information. Follow-Up Neurology within 1 month PCP within 1-2 weeks Additional Copies To Khalif Lockhart M.D.; Pro,Alex Deng M.D.
--- NOTE | 2017-08-07 15:40 | NUR ---
A/OBS: Discharge instructions given to pt. Prescription sent to pharmacy. Saline lock and monitor removed. Pt verbalized understanding. No further questions at this time. Pt awaiting for transportation. Will continue to monitor.
== END 2017-08-07 16:26 | disposition home or self-care (01) ==
LOC: C.EDB 10:22 → C.MED 12:49 → ENRESERV 13:26
PROVIDERS: ADMIT Family Medicine; ATTEND Family Medicine
DX: G43.909 Migraine, unspecified, not intractable, without status migrainosus (principal); D68.51 Activated protein C resistance; Z86.718 Personal history of other venous thrombosis and embolism; F41.9 Anxiety disorder, unspecified; F31.9 Bipolar disorder, unspecified; I95.1 Orthostatic hypotension; E04.1 Nontoxic single thyroid nodule; J45.909 Unspecified asthma, uncomplicated; G47.00 Insomnia, unspecified; I35.1 Nonrheumatic aortic (valve) insufficiency; Z79.01 Long term (current) use of anticoagulants; Z79.899 Other long term (current) drug therapy; Z98.890 Other specified postprocedural states; Z82.49 Family history of ischemic heart disease and other diseases of the circulatory system; Z83.3 Family history of diabetes mellitus

== ENCOUNTER → 2017-12-10 | Outpatient (CLI) | payer OTHER ==
[~2017-12-10] MED LIST changes: +AMPH20CA3 PO; +AMPH30CA3 PO; +APIX1TAB3 PO; +DICL1GEL34 TOP; +DSY/150 PO; -IBUP-1050 PO; +IMT100 PO; +LAMO150T PO; +PRD20 PO; +PROM25TA16 PO; +RISP0.5T10 PO; +VALA1TAB2 PO; +VNTHFA/IN INH
--- NOTE | 2017-12-10 16:41 | DIAGNOSTIC IMAGING REPORT ---
R HIP UNILATERAL 2 VIEWS CLINICAL HISTORY: M25.551 Right hip [id number] COMPARISON: None. DISCUSSION: Degenerative changes are present within the lower lumbar spine. No fractures or dislocations of the right hip are visualized. There are no erosive or destructive changes. The joint space appears well-preserved for age. IMPRESSION: No significant bony abnormalities of the right hip are visualized Electronically signed by: Cristobal Rivera M.D. 12/10/2017 4:39 PM Dictated Date/Time: 12/10/2017 4:39 PM
[2017-12-10 17:16] LABS: HEMATOCRIT 37.4 % (37-47); HEMOGLOBIN 12.5 g/dL (12.0-16.0); MEAN CELL VOLUME 91.9 fL (80-100); MEAN CORPUSCULAR HEMOGLOBIN 30.7 pg (25-34); MEAN CORPUSCULAR HGB CONC 33.4 g/dl (32-36); MEAN PLATELET VOLUME 9.3 fL (7.4-10.4); PLATELET COUNT 392 K/uL (130-400); RED CELL DISTRIBUTION WIDTH CV 13.3 % (11.5-14.5); RED CELL DISTRIBUTION WIDTH SD 43.7 fL (36.4-46.3); WHITE BLOOD COUNT 9.82 K/uL (4.8-10.8)
[2017-12-10 18:51] LABS: ALBUMIN 3.7 gm/dl (3.4-5.0); BLOOD UREA NITROGEN 14 mg/dl (7-18); CARBON DIOXIDE 27 mmol/L (21-32); CREATININE 0.95 mg/dl (0.60-1.20); GLUCOSE 77 mg/dl (70-99); POTASSIUM 3.8 mmol/L (3.5-5.1); SODIUM 138 mmol/L (136-145)
[2017-12-10 19:02] LABS: ALKALINE PHOSPHATASE 57 U/L (45-117); ALT/SGPT 22 U/L (12-78); AST/SGOT 14 U/L (15-37)
== END | disposition home or self-care (01) ==
LOC: C.RAD1850 16:23
PROVIDERS: ATTEND Internal Medicine
DX: M25.551 Pain in right hip (principal)

== ENCOUNTER 2018-03-18 14:33 | Observation (INO) | payer OTHER ==
[~2018-03-18] VITALS: Ht 157.5 cm; Wt 66.0 kg
[~2018-03-18 14:33] MED LIST changes: -AMPH20CA3 PO; -AMPH30CA3 PO; -APIX1TAB3 PO; -DICL1GEL34 TOP; -DSY/150 PO; -IMT100 PO; -LAMO150T PO; -PROM25TA16 PO; -VALA1TAB2 PO; -VNTHFA/IN INH
[2018-03-18] MEDS ORDERED: MoRPHine SULFATE 10 MG/ML CARP/VIAL IV STA (15:18)
[2018-03-18] MEDS ORDERED: ONDANSETRON INJ 2 MG/ML 2 ML VIAL IV STA (15:18)
[2018-03-18] MEDS ORDERED: DEXAMETHASONE **PF** INJ 10 MG/ML VIAL IV ONE (15:30)
[2018-03-18] MEDS ORDERED: LXP10 PO (15:55)
[2018-03-18] MEDS ORDERED: RISP0.5T4 PO (15:55)
[2018-03-18] MEDS ORDERED: HYDROmorphone INJ 1 MG/ML SYR IV STA ×3 (16:13→17:41)
[2018-03-18] MEDS ORDERED: AMPH20CA3 PO (16:40)
[2018-03-18] MEDS ORDERED: AMPH30CA3 PO (16:40)
[2018-03-18 17:06] LABS: BASO % 0.7 %; BASO ABS # 0.06 K/uL (0-0.2); EOS % 2.9 %; EOS ABS # 0.26 K/uL (0-0.5); HEMATOCRIT 37.7 % (37-47); HEMOGLOBIN 13.2 g/dL (12.0-16.0); IG# 0.02 K/uL (0.00-0.02); LYMPH % 30.7 %; LYMPH ABS # 2.77 K/uL (1.2-3.4); MEAN CELL VOLUME 87.9 fL (80-100); MEAN CORPUSCULAR HEMOGLOBIN 30.8 pg (25-34); MEAN PLATELET VOLUME 9.9 fL (7.4-10.4); MONO % 6.2 %; MONO ABS # 0.56 K/uL (0.11-0.59); NEUT % 59.3 %; NEUT ABS # 5.34 K/uL (1.4-6.5); PLATELET COUNT 372 K/uL (130-400); RED CELL DISTRIBUTION WIDTH CV 12.3 % (11.5-14.5); RED CELL DISTRIBUTION WIDTH SD 39.1 fL (36.4-46.3); WHITE BLOOD COUNT 9.01 K/uL (4.8-10.8)
[2018-03-18 17:13] LABS: BLOOD UREA NITROGEN 14 mg/dl (7-18); CALCIUM 9.7 mg/dl (8.5-10.1); CARBON DIOXIDE 23 mmol/L (21-32); CREATININE 0.92 mg/dl (0.60-1.20); GLUCOSE 83 mg/dl (70-99); POTASSIUM 3.4 mmol/L (3.5-5.1); SODIUM 136 mmol/L (136-145)
[2018-03-18] MEDS ORDERED: DiphenhydrAMINE HCL 50 MG/ML VIAL IV STA (17:41)
[2018-03-18] MEDS ORDERED: ONDANSETRON INJ 2 MG/ML 2 ML VIAL ONE (18:20)
[2018-03-18] MEDS ORDERED: IMT100 PO (18:38)
[2018-03-18] MEDS ORDERED: DICL1GEL34 TOP (18:38)
[2018-03-18] MEDS ORDERED: VNTHFA/IN INH (18:38)
[2018-03-18] MEDS ORDERED: PROM25TA16 PO (18:38)
--- NOTE | 2018-03-18 19:15 | DIAGNOSTIC IMAGING REPORT ---
MRI LUMBAR SPINE W/O CONTRAST CLINICAL HISTORY: Intractable severe back pain with right lower extremity radiculopathy. TECHNIQUE: Sagittal and axial T1, T2 and STIR images were obtained. COMPARISON STUDY: No previous studies for comparison. OBSERVATIONS: The vertebral bodies and posterior elements appear intact. There is no abnormal bony signal present to suggest a marrow replacement process. There is a thoracic dextroscoliosis. There is an old minor superior endplate L1 compression deformity. Prominent discogenic endplate changes are visualized at the L4-5 and L5-S1 levels. L1-2: No disc protrusions or extrusions. No evidence of spinal canal or neural foraminal compromise. L2-3: No disc protrusions or extrusions. No evidence of spinal canal or neural foraminal compromise. L3-4: No disc protrusions or extrusions. No evidence of spinal canal or neural foraminal compromise. L4-5: There is a circumferential disc bulge present, and right lateral disc protrusion.. There is minimal effacement of the anterior thecal sac. There is mild narrowing of the right neural foramen. The lateral disc protrusion may impinge on the right L4 nerve root past its exit from the neural foramen L5-S1: There is a circumferential disc bulge. There is minor effacement of the anterior thecal sac. There is mild right-sided foraminal narrowing. The conus medullaris and cauda equina appear normal. IMPRESSION: 1. Old superior endplate L1 compression deformity 2. Disc bulge and right lateral disc protrusion at the L4-5 level. Mild narrowing of the right neural foramen 3. Disc bulge at the L5-S1 level. Mild right-sided foraminal narrowing. Electronically signed by: Cristobal Rivera M.D. 03/18/2018 7:14 PM Dictated Date/Time: 03/18/2018 7:09 PM
[2018-03-18] MEDS ORDERED: SODIUM CHLORIDE 0.9% 1000ML 1,000 ML IV STA (19:52)
[2018-03-18] MEDS ORDERED: DSY/150 PO (20:21)
[2018-03-18] MEDS ORDERED: APIX1TAB3 PO (20:21)
[2018-03-18] MEDS ORDERED: KETOROLAC TROMETHAMINE 30 MG/ML VIAL IV STA (20:34)
[2018-03-18] MEDS ORDERED: ALBUTEROL HFA 8 GM INHALER INH PRN (20:45)
[2018-03-18] MEDS ORDERED: TRAZODONE HCL 50 MG TAB PO PRN (20:45)
[2018-03-18] MEDS ORDERED: KETOROLAC TROMETHAMINE 15 MG/ML VIAL IV SCH (20:45)
--- NOTE | 2018-03-18 20:54 | EMERGENCY ROOM VISIT NOTE ---
History First contact with patient: 14:47 (Lucian Campbell PA) First contact with patient: 18:49 (James Goncalves M.D.) Chief Complaint: BACK PAIN Stated Complaint: SEVERE BACK AND RIGHT HIP PAIN History of Present Illness The patient is a 47 year old female who presents to the Emergency Room with complaints of severe lower back pain radiating into the right hip and right posterior thigh region. The patient reports that she has been dealing with this pain now for several months. She has a history of degenerative scoliosis as well. The patient reports that she has followed up with who referred her to Dr. Lopez, spine surgeon at [facility] in [place]. Her appointment is scheduled for 2 weeks from now. The patient also has seen her PCPs office and provided a prescription for a muscle relaxer which has not helped. She reports that give her a prescription for Ultram, but reports that she cannot take this with other medicines that she is taking. Patient also is on Eliquis, and has a history of factor V Leiden. The patient has had imaging studies of the back. She reports that the pain is sitting for long periods of time, and reports that her right leg does frequently get numb. She has to get up and walk around to resolve the numbness and pain. She denies any bladder or bowel incontinence, saddle anesthesias or right lower extremity weakness/foot drop. She denies any recent trauma since imaging studies have been performed. She rates her pain an 8 out of 10. (Lucian Campbell PA) Review of Systems 10 system review was performed and was negative except for pertinent positives and negatives as indicated in history of present illness (Lucian Campbell PA) Past Medical/Surgical History Medical Problems: (1) Abdominal pain (2) Abdominal pain (3) Anticoagulants,Lt,Current Use (4) Anxiety State Nos (5) Asthma (6) Asthma, Unspecified (7) Asthma, Unspecified (8) Bipolar disorder (9) Chest pain (10) Clavicle fracture (11) Deep venous thrombosis (12) Depressive Disorder Nec (13) Factor V Leiden (14) Hemiparesis (15) History of pulmonary embolus (PE) (16) Hyperlipidemia (17) Hyperlipidemia, Unspecified (18) Intractable headache (19) L1 compression fx (20) Left shoulder pain (21) Left shoulder pain (22) Migraine (23) Oth Forms Migraine W/O Intract Mgrn W/O Status Migrainosus (24) PERSONAL HX OF TIA,& CEREBRAL INFARCTION W/OUT RES DEFICITS (25) Pneumonia, Unspecified Organism (26) Pulmonary embolism (27) Radicular pain in left arm (28) Radicular pain in left arm (29) Subtherapeutic international normalized ratio (INR) (30) Suicidal Ideation (31) Tobacco Use Disorder (32) Vomiting Surgical Problems: (1) H/O: hysterectomy (2) Status post rotator cuff repair Social History Problems: (1) Hx-Venous Thrombosis&Embolism (James Goncalves M.D.) Family History Diabetes mellitus FH: ME (myocardial infarction) FH: heart disease Hypertension Thromboembolic disease (Lucian Campbell PA) Diabetes mellitus FH: ME (myocardial infarction) FH: heart disease Hypertension Thromboembolic disease (James Goncalves M.D.) Social History Smoking Status: Never Smoker Alcohol Use: occasionally Drug Use: none Marital Status: Housing Status: lives with family Occupation Status: employed (Lucian Campbell PA) Current/Historical Medications Scheduled Amphetamine-Dextroamphetamine 20MG (Adderall Xr 20MG), 20 MG PO QAM Amphetamine-Dextroamphetamine 30MG (Adderall Xr 30MG), 30 MG PO QAM Apixaban (Eliquis), 5 MG PO BID Escitalopram Oxalate (Escitalopram Oxalate), 10 MG PO QAM Lamotrigine (Lamictal), 150 MG PO HS Risperidone (Risperidone), 0.5 MG PO BID Scheduled PRN Albuterol Hfa (Ventolin Hfa), 1-2 PUFFS INH Q4-6HRS PRN for SOB/Wheezing Diclofenac Sodium (Topical) (Diclofenac Sodium), 1 APPLN TOP QID PRN for Pain Promethazine HCl (Promethazine HCl), 25 MG PO Q6H PRN for Nausea Sumatriptan Succinate (Imitrex), 100 MG PO UD PRN for Migraine Trazodone HCl (Trazodone HCl), 75 MG PO HS PRN for Insomnia Valacyclovir Hcl (Valtrex), 1,000 MG PO UD PRN for Outbreaks Physical Exam Vital Signs Date Time Temp Pulse Resp B/P (MAP) Pulse Ox O2 Delivery O2 Flow Rate FiO2 03/18/18 20:05 106 20 120/78 Room Air 03/18/18 18:17 86 18 122/78 100 Room Air 03/18/18 17:02 91 18 142/79 98 Room Air 03/18/18 16:22 77 18 140/78 96 Room Air 03/18/18 14:36 36.6 106 18 132/80 96 Room Air (James Goncalves M.D.) Physical Exam CONSTITUTIONAL: Healthy and well nourished. Alert and oriented X 3 with positive affect. Patient appears in moderately severe discomfort. HEENT: Normocephalic, atraumatic. Pupils equal, round and reactive. NECK: Full active range of motion without discomfort. RESPIRATORY: Clear to auscultation bilaterally with no wheezing, crackles, rhonchi or stridor. CARDIOVASCULAR: Regular rate and rhythm with no murmurs, rubs or gallops. GASTROINTESTINAL: Bowel sounds present in all quadrants. Soft and nontender to palpation. MUSCULOSKELETAL: Examination shows tenderness to palpation through the lower lumbar spine and SI joint. Negative logroll. Positive straight leg raise. Pedal pulses are intact. INTEGUMENTARY: No rash or other significant dermatologic conditions noted. NEUROLOGIC: No focal neurologic deficits noted. Lower extremities are sensory intact. (Lucian Campbell PA) Medical Decision & Procedures ER Provider Diagnostic Interpretation: Noncontrast MRI of the lumbar spine does not show any obvious fractures, abscesses given limitations without IV contrast, and only mild degenerative changes as discussed in the following report: MRI LUMBAR SPINE W/O CONTRAST CLINICAL HISTORY: Intractable severe back pain with right lower extremity radiculopathy. TECHNIQUE: Sagittal and axial T1, T2 and STIR images were obtained. COMPARISON STUDY: No previous studies for comparison. OBSERVATIONS: The vertebral bodies and posterior elements appear intact. There is no abnormal bony signal present to suggest a marrow replacement process. There is a thoracic dextroscoliosis. There is an old minor superior endplate L1 compression deformity. Prominent discogenic endplate changes are visualized at the L4-5 and L5-S1 levels. L1-2: No disc protrusions or extrusions. No evidence of spinal canal or neural foraminal compromise. L2-3: No disc protrusions or extrusions. No evidence of spinal canal or neural foraminal compromise. L3-4: No disc protrusions or extrusions. No evidence of spinal canal or neural foraminal compromise. L4-5: There is a circumferential disc bulge present, and right lateral disc protrusion.. There is minimal effacement of the anterior thecal sac. There is mild narrowing of the right neural foramen. The lateral disc protrusion may impinge on the right L4 nerve root past its exit from the neural foramen L5-S1: There is a circumferential disc bulge. There is minor effacement of the anterior thecal sac. There is mild right-sided foraminal narrowing. The conus medullaris and cauda equina appear normal. IMPRESSION: 1. Old superior endplate L1 compression deformity 2. Disc bulge and right lateral disc protrusion at the L4-5 level. Mild narrowing of the right neural foramen 3. Disc bulge at the L5-S1 level. Mild right-sided foraminal narrowing. (Lucian Campbell PA) Laboratory Results 03/18/18 15:25 Red Blood Count 4.29, Mean Corpuscular Volume 87.9, Mean Corpuscular Hemoglobin 30.8, Mean Corpuscular Hemoglobin Concent 35.0, Mean Platelet Volume 9.9, Neutrophils (%) (Auto) 59.3, Lymphocytes (%) (Auto) 30.7, Monocytes (%) (Auto) 6.2, Eosinophils (%) (Auto) 2.9, Basophils (%) (Auto) 0.7, Neutrophils # (Auto) 5.34, Lymphocytes # (Auto) 2.77, Monocytes # (Auto) 0.56, Eosinophils # (Auto) 0.26, Basophils # (Auto) 0.06 03/18/18 15:25 Test 03/18/18 15:25 03/18/18 17:10 White Blood Count 9.01 K/uL (4.8-10.8) Red Blood Count 4.29 M/uL (4.2-5.4) Hemoglobin 13.2 g/dL (12.0-16.0) Hematocrit 37.7 % (37-47) Mean Corpuscular Volume 87.9 fL (80-100) Mean Corpuscular Hemoglobin 30.8 pg (25-34) Mean Corpuscular Hemoglobin Concent 35.0 g/dl (32-36) Platelet Count 372 K/uL (130-400) Mean Platelet Volume 9.9 fL (7.4-10.4) Neutrophils (%) (Auto) 59.3 % Lymphocytes (%) (Auto) 30.7 % Monocytes (%) (Auto) 6.2 % Eosinophils (%) (Auto) 2.9 % Basophils (%) (Auto) 0.7 % Neutrophils # (Auto) 5.34 K/uL (1.4-6.5) Lymphocytes # (Auto) 2.77 K/uL (1.2-3.4) Monocytes # (Auto) 0.56 K/uL (0.11-0.59) Eosinophils # (Auto) 0.26 K/uL (0-0.5) Basophils # (Auto) 0.06 K/uL (0-0.2) RDW Standard Deviation 39.1 fL (36.4-46.3) RDW Coefficient of Variation 12.3 % (11.5-14.5) Immature Granulocyte % (Auto) 0.2 % Immature Granulocyte # (Auto) 0.02 K/uL (0.00-0.02) Erythrocyte Sedimentation Rate 7 mm/hr (0-21) Anion Gap 10.0 mmol/L (3-11) Est Creatinine Clear Calc Drug Dose 61.1 ml/min Estimated GFR () 87.2 Estimated GFR (Non- 75.2 BUN/Creatinine Ratio 15.4 (10-20) Calcium Level 9.7 mg/dl (8.5-10.1) C-Reactive Protein < 0.29 mg/dl (0-0.29) Lyme Disease IgG Antibody NEG (NEG) Lyme Disease IgM Antibody NEG (NEG) (James Goncalves M.D.) The above labs were reviewed, and grossly normal, including a normal sed rate, CRP and Lyme screen. CBC and partial renal profile are also normal. (Lucian Campbell PA) Medications Administered Medications (Trade) Dose Ordered Sig/Shay Route Start Time Stop Time Status Last Admin Dose Admin Morphine Sulfate (MoRPHine SULFATE INJ) 8 mg NOW STAT IV 03/18/18 15:18 03/18/18 15:20 DC 03/18/18 15:30 8 MG Ondansetron HCl (Zofran Inj) 4 mg NOW STAT IV 03/18/18 15:18 03/18/18 15:20 DC 03/18/18 15:30 4 MG Dexamethasone Sodium Phosphate (Dexamethasone Inj Pf) 10 mg NOW ONCE IV 03/18/18 15:30 03/18/18 15:31 DC 03/18/18 15:30 10 MG Hydromorphone HCl (Dilaudid Inj) 1 mg NOW STAT IV 03/18/18 16:13 03/18/18 16:14 DC 03/18/18 16:17 1 MG Hydromorphone HCl (Dilaudid Inj) 1 mg NOW STAT IV 03/18/18 16:50 03/18/18 16:51 DC 03/18/18 17:02 1 MG Hydromorphone HCl (Dilaudid Inj) 1 mg NOW STAT IV 03/18/18 17:41 03/18/18 17:43 DC 03/18/18 18:13 1 MG Diphenhydramine HCl (Benadryl Inj) 25 mg NOW STAT IV 03/18/18 17:41 03/18/18 17:43 DC 03/18/18 18:12 25 MG Ondansetron HCl (Zofran Inj) 4 mg STK-MED ONCE .ROUTE 03/18/18 18:20 03/18/18 18:21 DC 03/18/18 18:33 4 MG Sodium Chloride 1,000 ml @ 999 mls/hr Q1H1M STAT IV 03/18/18 19:52 03/18/18 20:52 DC 03/18/18 19:57 999 MLS/HR Ketorolac Tromethamine (Toradol Inj) 30 mg NOW STAT IV 03/18/18 20:34 03/18/18 20:59 DC 03/18/18 21:27 30 MG Hydromorphone HCl (Dilaudid Inj) 0.5 mg NOW ONCE IV 03/18/18 21:00 03/18/18 21:02 DC 03/18/18 21:30 0.5 MG (James Goncalves M.D.) ED Course Patient history and physical exam were performed. Nurse's notes were reviewed. Vital signs were reviewed and were normal. The patient appears in moderate severe discomfort. It appears that the patient has already had an extensive workup by and has referred the patient to a tertiary care center to be reevaluated by spine surgeon there. Because the patient denies any recent trauma or injuries, I do not feel that further advanced imaging, including an MRI is warranted today. She does not have any symptoms or physical exam findings consistent with cauda equina syndrome. I did suggest administering medications to get her comfortable, and provide a prescription for a corticosteroid and pain medicine. I did review the [place] Prescription Drug Monitoring Program, showing no red flags. She gets frequent Adderall prescription refills, and did get a prescription filled for tramadol 4 days ago that was prescribed by . IV access was established, and the patient was administered IV morphine, Zofran and Decadron. The patient reports that this did nothing for her pain. She was then administered Dilaudid 1 mg IVP, again with out any significant change of her pain. She was administered an additional Dilaudid 1 mg IVP, which only reduce the pain from a 9 to a 7 out of 10. She was complaining of being somewhat itchy, and was administered Benadryl 25 mg IVP. At this point, I suggested checking some lab work and getting an MRI of the lumbar spine because of her intractable pain. I did explain that some insurance companies require prior authorization, and that I cannot guarantee that her insurance company may not try to charge her for the MRI. The patient voiced understanding, and elected to proceed with the MRI study. Labs were reviewed and were normal. Prior to her MRI, she was complaining of some nausea, and was also administered Zofran 4 mg IVP. The patient remained hemodynamically stable with all of these parenteral analgesics. She was hydrated with a liter normal saline. MRI was performed and was grossly unremarkable. Upon reevaluation, the patient was still complaining of pain rated a 7 out of 10. I offered stronger prescription analgesics for her if she wished to be discharged, however the patient reports that she does not feel that she can go home at this time because of her current pain. The case was also discussed with Dr. Goncalves, ED attending physician who agrees with workup and recommended hospitalist consultation. The patient was seen and evaluated by Dr. Oleary, [facility] physician's Group hospitalist. Please see his dictation for further treatment and final disposition. (Lucian Campbell PA) Medical Decision Patient presents to the emergency department with symptoms, history and clinical exam findings consistent with an acute right lumbar radiculitis. Her noncontrast MRI does not show any significant compressive neuropathy or cauda equina syndrome. Other differentials considered included in DVT, soft tissue abscess, occult fracture of the right pelvic or hip region, zoster or pelvic or abdominal referred pain. Her clinical exam does not show any tenderness to palpation of the abdomen. She has no CVA tenderness to suggest pyelonephritis. I do not suspect renal colic. (Lucian Campbell PA) [place] Drug Monitoring [place] Search Results: patient reviewed within database, no issues identified (Lucian Campbell PA) Medication Reconcilliation Current Medication List: was personally reviewed by me (Lucian Campbell PA) Impression Primary Impression: Right lumbar radiculitis Additional Impression: Intractable low back pain Departure Information Referrals Pro,Alex Deng M.D. (PCP) Patient Instructions My [facility] Problem Qualifiers
[2018-03-18] MEDS ORDERED: MAGNESIUM HYDROXIDE SUSP 30 ML UDC PO PRN (21:00)
[2018-03-18] MEDS ORDERED: HYDROmorphone INJ 0.5 MG/0.5 ML SYR IV ONE (21:00)
[2018-03-18] MEDS ORDERED: ACETAMINOPHEN 325 MG TAB PO PRN (21:00)
[2018-03-18] MEDS ORDERED: ALUMINUM/MAGNESIUM/SIMETH (MAALOX MAX) 30 ML UDC PO PRN (21:00)
[2018-03-18] MEDS ORDERED: POLYETHYLENE (MIRALAX) 17 GM PACK PO PRN (21:00)
[2018-03-18] MEDS ORDERED: ONDANSETRON INJ 2 MG/ML 2 ML VIAL IV PRN (21:00)
--- NOTE | 2018-03-18 21:03 | DIAGNOSTIC IMAGING REPORT ---
PELVIS 1 OR 2 VIEW ROUTINE CLINICAL HISTORY: Intractable right hip pain COMPARISON STUDY: Sacrum and coccyx dated 03/29/2013 FINDINGS: Degenerative changes are present within the lower lumbar spine. No fractures are visualized. The joint space appears relatively well preserved for age. There are no erosive or destructive changes. IMPRESSION: 1. No significant bony abnormalities of the hips 2. Degenerative changes within the lumbar spine Electronically signed by: Cristobal Rivera M.D. 03/18/2018 9:02 PM Dictated Date/Time: 03/18/2018 9:01 PM
[2018-03-18] MEDS ORDERED: HYDROmorphone INJ 1 MG/ML SYR ONE (21:19)
--- NOTE | 2018-03-18 21:26 | History and Physical ---
History & Physical Date & Time of Service: Mar 18, 2018 at 20:57 Chief Complaint: Severe Back And Right Hip Pain Primary Care Physician: Alex Anders M.D. History of Present Illness Source: patient, hospital records, other 47 y/o F Hx lower back pain, complex migraines, bipolar disorder, Factor V Leiden mutation with history of DVT/PE, hyperlipidemia, narcotic dependence. The pt has disc herniations at L4-5, L5-S1. She was recently evaluated by orthopedics and has an appt with a position classification specialist at [place] in 2 weeks. She states that her lower back pain has been progressively worse over the past few days. She could not sit up at work and states that she is unable to ambulate an appreciable distance due to the pain. The pain wraps around to her anterior pevic area and R hip. It is exacerbated with any movement. She does not report acute weakness or numbness and denies incontinence or urinary retention. Past Medical/Surgical History 1) Chronic back pain 2) History of opioid dependence 3) Complex migraines - admitted with R sided weakness 2016 - neuro evaluation concluded that this was due to a complex migraine 4) Factor V Leiden mutation 5) PE/DVT 6) Bipolar disorder 7) Depression 8) Hyperlipidemia 9) L1 compression fracture 10) L4-5, L5-S1 disc bulge Surgical Problems: 1) Hysterectomy 2) Status post rotator cuff repair Family History Diabetes mellitus FH: [place] (myocardial infarction) FH: heart disease Hypertension Thromboembolic disease Social History Denies a history of smoking, works at [employer], occasionally drinks wine. Smoking Status: Never Smoker Drug Use: none Marital Status: Housing status: lives with family Occupational Status: employed Immunizations History of Influenza Vaccine: N/A Influenza Vaccine Date: Aug 18, 2008 History of Tetanus Vaccine?: Yes Tetanus Immunization Date: Apr 08, 2013 History of Pneumococcal: Unknown History of Hepatitis B Vaccine: No Allergies Coded Allergies: Tramadol (Verified Allergy, Unknown, Adverse results with other prescribed medications, 03/18/18) Home Medications Scheduled Amphetamine-Dextroamphetamine 20MG (Adderall Xr 20MG), 20 MG PO QAM Amphetamine-Dextroamphetamine 30MG (Adderall Xr 30MG), 30 MG PO QAM Apixaban (Eliquis), 5 MG PO BID Escitalopram Oxalate (Escitalopram Oxalate), 10 MG PO QAM Lamotrigine (Lamictal), 150 MG PO HS Risperidone (Risperidone), 0.5 MG PO BID Scheduled PRN Albuterol Hfa (Ventolin Hfa), 1-2 PUFFS INH Q4-6HRS PRN for SOB/Wheezing Diclofenac Sodium (Topical) (Diclofenac Sodium), 1 APPLN TOP QID PRN for Pain Promethazine HCl (Promethazine HCl), 25 MG PO Q6H PRN for Nausea Sumatriptan Succinate (Imitrex), 100 MG PO UD PRN for Migraine Trazodone HCl (Trazodone HCl), 75 MG PO HS PRN for Insomnia Valacyclovir Hcl (Valtrex), 1,000 MG PO UD PRN for Outbreaks Review of Systems Constitutional: No fever, No chills, No sweats Eyes: No worsening of vision ENT: No hearing loss, No unusual epistaxis, No nasal symptoms Respiratory: No cough, No sputum, No wheezing Cardiovascular: No chest pain, No orthopnea, No PND Abdomen: No pain, No nausea, No vomiting Musculoskeletal: + joint pain (Pain in lower back, R hip as above) Genitourinary - Female: No dysuria, No urinary frequency, No urinary urgency Neurologic: No memory loss, No paralysis, No weakness Psychiatric: No depression symptoms Endocrine: No fatigue Hematologic / Lymphatic: No abnormal bleeding/bruising Integumentary: No rash Physical Exam Vital Signs Date Time Temp Pulse Resp B/P (MAP) Pulse Ox O2 Delivery O2 Flow Rate FiO2 03/18/18 18:17 86 18 122/78 100 Room Air 03/18/18 17:02 91 18 142/79 98 Room Air 03/18/18 16:22 77 18 140/78 96 Room Air 03/18/18 14:36 36.6 106 18 132/80 96 Room Air General Appearance: + pertinent finding (Emotionally distressed, middle-aged female. She is able to rotate herself in bed with some difficulty) Eyes: normal inspection ENT: normal ENT inspection, pharynx normal Neck: supple, no JVD Respiratory/Chest: chest non-tender, lungs clear, normal breath sounds Cardiovascular: regular rate, rhythm, no edema, no gallop, no JVD Abdomen/GI: normal bowel sounds, non tender Back: normal inspection, no CVA tenderness Extremities/Musculoskelatal: normal inspection, no calf tenderness, normal capillary refill, + pertinent finding (There is pain in the back and hip with passive movement of the R leg) Neurologic/Psych: litigation partner II-XII nml as tested, no motor/sensory deficits, alert, oriented x 3, + pertinent finding (No significant numbness or weakness is appreciated. Effort on the R is limited by pain) Skin: normal color, warm/dry Diagnostics Laboratory Results Results Past 24 Hours Test 03/18/18 15:25 03/18/18 17:10 Range/Units White Blood Count 9.01 4.8-10.8 K/uL Red Blood Count 4.29 4.2-5.4 M/uL Hemoglobin 13.2 12.0-16.0 g/dL Hematocrit 37.7 37-47 % Mean Corpuscular Volume 87.9 80-100 fL Mean Corpuscular Hemoglobin 30.8 25-34 pg Mean Corpuscular Hemoglobin Concent 35.0 32-36 g/dl Platelet Count 372 130-400 K/uL Mean Platelet Volume 9.9 7.4-10.4 fL Neutrophils (%) (Auto) 59.3 % Lymphocytes (%) (Auto) 30.7 % Monocytes (%) (Auto) 6.2 % Eosinophils (%) (Auto) 2.9 % Basophils (%) (Auto) 0.7 % Neutrophils # (Auto) 5.34 1.4-6.5 K/uL Lymphocytes # (Auto) 2.77 1.2-3.4 K/uL Monocytes # (Auto) 0.56 0.11-0.59 K/uL Eosinophils # (Auto) 0.26 0-0.5 K/uL Basophils # (Auto) 0.06 0-0.2 K/uL RDW Standard Deviation 39.1 36.4-46.3 fL RDW Coefficient of Variation 12.3 11.5-14.5 % Immature Granulocyte % (Auto) 0.2 % Immature Granulocyte # (Auto) 0.02 0.00-0.02 K/uL Erythrocyte Sedimentation Rate 7 0-21 mm/hr Sodium Level 136 136-145 mmol/L Potassium Level 3.4 3.5-5.1 mmol/L Chloride Level 103 98-107 mmol/L Carbon Dioxide Level 23 21-32 mmol/L Anion Gap 10.0 3-11 mmol/L Blood Urea Nitrogen 14 7-18 mg/dl Creatinine 0.92 0.60-1.20 mg/dl Est Creatinine Clear Calc Drug Dose 61.1 ml/min Estimated GFR () 87.2 Estimated GFR (Non- 75.2 BUN/Creatinine Ratio 15.4 10-20 Random Glucose 83 70-99 mg/dl Calcium Level 9.7 8.5-10.1 mg/dl C-Reactive Protein < 0.29 0-0.29 mg/dl Lyme Disease IgG Antibody NEG NEG Lyme Disease IgM Antibody NEG NEG Diagnostic Radiology Lumbar MRI 1. Old superior endplate L1 compression deformity 2. Disc bulge and right lateral disc protrusion at the L4-5 level. Mild narrowing of the right neural foramen 3. Disc bulge at the L5-S1 level. Mild right-sided foraminal narrowing Impression Assessment and Plan 47 y/o F Hx lower back pain, complex migraines, bipolar disorder, Factor V Leiden mutation with history of DVT/PE, hyperlipidemia, narcotic dependence. The pt has disc herniations at L4-5, L5-S1. She was recently evaluated by orthopedics and has an appt with a position classification specialist at [place] in 2 weeks. She states that her lower back pain has been progressively worse over the past few days. She could not sit up at work and states that she is unable to ambulate an appreciable distance due to the pain. The pain wraps around to her anterior pelvic area and R hip. It is exacerbated with any movement. She does not report acute weakness or numbness and denies incontinence or urinary retention. 1) Back pain - we will provide steroids and a single anti-inflammatory dose. She will receive PO narcotics and we will consult pain management as she has a history of narcotic dependence for issues unrelated to her back and it is noted int the ER that she has a very high tolerance. The pt will be evaluated by the orthopedic service. There is no indication on imaging or clinical exam that emergent intervention is needed, however, she was referred to a specialist at [place] and it is not clear if she can be managed here therefore. 2) Factor V Leiden mutation - cont Eliquis 3) Bipolar disorder - cont Lamictal, Risperidone, Lexapro 4) Complex Migraines - will consider triptan use as needed Full code - Apixaban prophylaxis Total time for this admit including review of labs, meds imaging, records - discussion with pt and ER attending - 38 min Resuscitation Status VTE Prophylaxis Will order VTE Prophylaxis: Yes
[2018-03-18] MEDS ORDERED: LAMO150T PO (21:34)
[2018-03-18] MEDS ORDERED: PROMETHAZINE HCL INJ 25 MG in SODIUM CHLORIDE 0.9% 50ML 50 ML IV STA (21:47)
[2018-03-18] MEDS ORDERED: VALA1TAB2 PO (22:53)
[2018-03-18 23:35] VITALS: BP 127/80; PULSE 97; TEMP 36.8; O2SAT 99; Ht 157.5 cm; Wt 66.0 kg
[2018-03-18] MEDS: OXYCODONE/ACETAMINOPHEN 10/325MG TAB PO PRN (23:55)
[2018-03-18] MEDS: RISPERIDONE 0.5 MG TAB PO SCH (23:55)
[2018-03-18] MEDS: D5NSS + 20MEQ KCL 1,000 ML IV SCH (23:56)
[2018-03-18] MEDS: ESCITALOPRAM OXALATE 10 MG TAB PO SCH (23:56)
[2018-03-18] MEDS: APIXABAN 5 MG TAB PO SCH (23:56)
[2018-03-18] MEDS: TRAZODONE HCL 50 MG TAB PO PRN (23:57)
[2018-03-19] MEDS ORDERED: IV FLUIDS COMPLETED PRN (00:15)
[2018-03-19] MEDS: OXYCODONE/ACETAMINOPHEN 10/325MG TAB PO PRN ×4 (06:43→20:46)
[2018-03-19 07:00] VITALS: BP_SYST 84; BP_SYST 85; BP_DIAS 44; BP_DIAS 47; PULSE 96; TEMP 36.7; O2SAT 99
[2018-03-19 07:34] VITALS: BP 94/55; PULSE 89
[2018-03-19] MEDS ORDERED: PNEUMOCOCCAL POLYSACCHARIDES 25 MCG/0.5 ML VIAL/SYR IM. ONE (08:00)
[2018-03-19] MEDS ORDERED: PNEUMOCOCCAL ADMINISTRATION CHARGE ONE (08:00)
[2018-03-19] MEDS: D5NSS + 20MEQ KCL 1,000 ML IV SCH (09:53)
[2018-03-19] MEDS: RISPERIDONE 0.5 MG TAB PO SCH ×2 (09:54→20:47)
--- NOTE | 2018-03-19 10:01 | Pain Management Consultation ---
Pain Management Consultation Date of Consultation Mar 19, 2018. Reason for Consultation lumbar radiculopathy Pain Location 1 - 2 - History This is a 47-year-old female that is being seen at the [facility] for intractable lumbago and lumbar radiculopathy. Patient states that the pain has been ongoing for approximately 6 months but has been worsening over the last week or so. She describes an aching, stabbing pain along the right low back that radiates along the right lateral/anterior thigh. Pain does not radiate past the knee. She is previously tried muscle relaxers, Tylenol, ibuprofen, tramadol, [id number]-rda-hswsdin patches and creams, heat, ice without relief. She states that the pain is aggravated with standing and walking. Elevating the right leg, sitting, laying supine does provide moderate relief. She has seen Dr. Livingston for a surgical consultation and told that due to her scoliosis and the degree of back issues, he would recommend that the patient see Dr. Lopez at [facility] for a surgical consultation. She is scheduled to see Dr. Lopez in 2 weeks. She reports sleep disturbances. Patient denies any bowel/bladder incontinence, saddle anesthesia, foot drop, leg weakness, falls. Case discussed with Dr. New Past Medical/Surgical History (1) Right lumbar radiculitis (2) Intractable low back pain (3) Pulmonary embolism (4) L1 compression fx (5) Bipolar disorder (6) Deep venous thrombosis (7) Clavicle fracture (8) Left shoulder pain (9) Status post rotator cuff repair (10) Hx-Venous Thrombosis&Embolism Family History Diabetes mellitus FH: [place] (myocardial infarction) FH: heart disease Hypertension Thromboembolic disease Social / Work History Marital Status: Housing Status: lives with family Occupation: employed Allergies Coded Allergies: Tramadol (Verified Allergy, Unknown, Adverse results with other prescribed medications, 03/18/18) Medications Current Inpatient Medications Medications (Trade) Dose Ordered Sig/Shay Route Start Time Stop Time Status Last Admin Dose Admin Prednisone (PredniSONE TAB) 40 mg DAILY PO 03/19/18 09:00 04/18/18 08:59 Potassium Chloride/Dextrose/ Sod Cl 1,000 ml @ 100 mls/hr Q10H IV 03/18/18 23:30 03/19/18 19:29 03/18/18 23:56 100 MLS/HR Albuterol (Ventolin Hfa Inhaler) 2 puffs Q6H PRN INH 03/18/18 20:45 04/17/18 20:44 Apixaban (Eliquis) 5 mg BID PO 03/18/18 23:30 04/17/18 23:29 03/18/18 23:56 5 MG Escitalopram Oxalate (Lexapro Tab) 10 mg QAM PO 03/19/18 09:00 04/18/18 08:59 03/18/18 23:56 10 MG Lamotrigine (Lamictal Tab) 150 mg HS PO 03/18/18 21:00 04/17/18 20:59 03/18/18 23:56 150 MG Risperidone (Risperdal Tab) 0.5 mg BID PO 03/18/18 21:00 04/17/18 20:59 03/18/18 23:55 0.5 MG Oxycodone/ Acetaminophen (Percocet 10-325MG Tab) 1 tab Q4H PRN PO 03/18/18 21:00 04/01/18 20:59 03/19/18 06:43 1 TAB Trazodone HCl (Desyrel Tab) 75 mg HS PRN PO 03/18/18 21:15 04/17/18 20:44 03/18/18 23:57 75 MG Acetaminophen (Tylenol Tab) 650 mg Q4H PRN PO 03/18/18 21:00 04/17/18 20:59 Al Hydrox/Mg Hydrox/Simethicone (Maalox Max Susp) 15 ml Q4H PRN PO 03/18/18 21:00 04/17/18 20:59 Magnesium Hydroxide (Milk Of Magnesia Susp) 30 ml Q6H PRN PO 03/18/18 21:00 04/17/18 20:59 Polyethylene (Miralax Powder Packet) 17 gm DAILY PRN PO 03/18/18 21:00 04/17/18 20:59 Ondansetron HCl (Zofran Inj) 4 mg Q6H PRN IV 03/18/18 21:00 04/17/18 20:59 Miscellaneous (Iv Fluids Completed) 1 ea PRN PRN N/A 03/19/18 00:15 03/19/19 00:14 Review of Systems Denies any constitutional, cardiac, pulmonary, neurological, GI, , extremity, endocrine, neuro, ENT, dermatological, or musculoskeletal complaints other than stated in HPI Physical Exam Height & Weight: Height 5 feet, 2.00 inches. Weight 66.000 (Kilograms) 145 (Pounds) Last Vital Signs Documentation Date Time Temp Pulse Resp B/P (MAP) Pulse Ox O2 Delivery O2 Flow Rate FiO2 03/19/18 07:45 Room Air 03/19/18 07:34 89 94/55 (68) 03/19/18 07:00 36.7 15 99 Exam: GENERAL: This is a 47 y/o white female that appears her stated age. Speech and cognition is intact. Mood and affect is appropriate. Sitting quietly in the exam room, in no acute distress. BACK: Full ROM. There is no midline tenderness. There is exquisite tenderness along the right L4-5 region. There is mild right SI joint tenderness. There is Moderate spasm along the right paravertebral musculature. LOWER EXTREMITIES: Positive straight leg raise on the right, negative on the left. R Hip flexion +5; hip extension +5; knee extension +5; knee flexion +5; dorsiflexion +5; plantar flexion +5 L Hip flexion +5; hip extension +5; knee extension +5; knee flexion +5; dorsiflexion +5; plantar flexion +5 NEURO: Gait not witnessed. Awake, alert, and oriented x 3. Distal sensation of lower legs intact and equal bilaterally. Laboratory Laboratory Results (Last CBC): 03/18/18 15:25 Red Blood Count 4.29, Mean Corpuscular Volume 87.9, Mean Corpuscular Hemoglobin 30.8, Mean Corpuscular Hemoglobin Concent 35.0, Mean Platelet Volume 9.9, Neutrophils (%) (Auto) 59.3, Lymphocytes (%) (Auto) 30.7, Monocytes (%) (Auto) 6.2, Eosinophils (%) (Auto) 2.9, Basophils (%) (Auto) 0.7, Neutrophils # (Auto) 5.34, Lymphocytes # (Auto) 2.77, Monocytes # (Auto) 0.56, Eosinophils # (Auto) 0.26, Basophils # (Auto) 0.06 Imaging MRI Findings MRI LUMBAR SPINE W/O CONTRAST CLINICAL HISTORY: Intractable severe back pain with right lower extremity radiculopathy. TECHNIQUE: Sagittal and axial T1, T2 and STIR images were obtained. COMPARISON STUDY: No previous studies for comparison. OBSERVATIONS: The vertebral bodies and posterior elements appear intact. There is no abnormal bony signal present to suggest a marrow replacement process. There is a thoracic dextroscoliosis. There is an old minor superior endplate L1 compression deformity. Prominent discogenic endplate changes are visualized at the L4-5 and L5-S1 levels. L1-2: No disc protrusions or extrusions. No evidence of spinal canal or neural foraminal compromise. L2-3: No disc protrusions or extrusions. No evidence of spinal canal or neural foraminal compromise. L3-4: No disc protrusions or extrusions. No evidence of spinal canal or neural foraminal compromise. L4-5: There is a circumferential disc bulge present, and right lateral disc protrusion.. There is minimal effacement of the anterior thecal sac. There is mild narrowing of the right neural foramen. The lateral disc protrusion may impinge on the right L4 nerve root past its exit from the neural foramen L5-S1: There is a circumferential disc bulge. There is minor effacement of the anterior thecal sac. There is mild right-sided foraminal narrowing. The conus medullaris and cauda equina appear normal. IMPRESSION: 1. Old superior endplate L1 compression deformity 2. Disc bulge and right lateral disc protrusion at the L4-5 level. Mild narrowing of the right neural foramen 3. Disc bulge at the L5-S1 level. Mild right-sided foraminal narrowing. Electronically signed by: Cristobal Rivera M.D. 03/18/2018 7:14 PM Dictated Date/Time: 03/18/2018 7:09 PM Radiology Findings PELVIS 1 OR 2 VIEW ROUTINE CLINICAL HISTORY: Intractable right hip pain COMPARISON STUDY: Sacrum and coccyx dated 03/29/2013 FINDINGS: Degenerative changes are present within the lower lumbar spine. No fractures are visualized. The joint space appears relatively well preserved for age. There are no erosive or destructive changes. IMPRESSION: 1. No significant bony abnormalities of the hips 2. Degenerative changes within the lumbar spine Electronically signed by: Cristobal Rivera M.D. 03/18/2018 9:02 PM Dictated Date/Time: 03/18/2018 9:01 PM [place] Drug Monitoring Program Search Results: patient reviewed within database Drug Monitoring Findings: Routinely prescribed Adderall. Recent Tramadol Rx by Dr. Livingston. [id number] moderate amount of Hydrocodone and oxycodone prescriptions, predominantly from orthopedics. Opioid Risk Assessment Risk assessment performed, moderate risk identified Assessment 1. Right sided lumbar radiculopathy 2. Disc protrusion impinging on the right L4 nerve 3. Bipolar disorder Recommendations 1. Continue Prednisone and Percocet. 2. Heating pad was ordered. 3. Would defer from Gabapentin given the likely possibility of interaction with her other medications. 4. We have discussed an epidural injection briefly, should she be interested she may be seen on an outpatient basis. 5. Keep scheduled appointment with Dr. Lopez at [facility] for a surgical opinion.
[2018-03-19] MEDS: APIXABAN 5 MG TAB PO SCH ×2 (10:58→20:47)
[2018-03-19 16:05] VITALS: BP 105/56; PULSE 90; TEMP 36.9; O2SAT 96
--- NOTE | 2018-03-19 20:04 | CONSULTATION REPORT ---
DATE OF CONSULTATION: 03/18/2018 CHIEF COMPLAINT: Severe back pain, right hip and buttock pain. HISTORY OF PRESENT ILLNESS: Kimberly is a delightful, I remember her just from a few days ago in the office. We were treating her conservatively. She was able to get appointment with a scoliosis specialist up at [place] or up at [facility]. That was actually set up for 2 weeks from now. Evidently the pain got so bad, she had to make a trip to the ER for evaluation and treatment, MRI scan, and admission. All appropriate. She cannot function well. PAST MEDICAL HISTORY: Chronic scoliosis pain, opioid dependence, migraines, a Factor V deficiency, PE, bipolar, depression, L1 compression fracture, and scoliosis. FAMILY HISTORY: Listed. SOCIAL HISTORY: Nonsmoker, nonalcohol user, , employed. ALLERGIES: MULTIPLE ALLERGIES. SCHEDULED MEDICATIONS: Listed including Adderall, Eliquis, Lamictal. She also takes a Ventolin inhaler, anti-inflammatories, Imitrex, trazodone, Valtrex. REVIEW OF SYSTEMS: She has no fevers, sweats, chills, no bowel and bladder issues. Admits to joint pain, back pain, lower extremity difficulty. Denies any abdominal discomfort. Denies any genitourinary discomfort. No current depression. Mild fatigue. PHYSICAL EXAMINATION: VITAL SIGNS: Blood pressure 130/80, pulse 80. HEENT: Normal. CHEST: Normal. LUNGS: Clear. ABDOMEN: Soft, nontender. EXTREMITIES: Normal inspection to her spine. No calf tenderness. There is pain with the spine. There is pain with passive movement, right leg. There is pain with straight leg raising, but overall moves all extremities with no associated weakness. Images demonstrate a bulging disk of spine and mild protrusion at L4-L5. I believe the problem was the plain x-ray taken at the office demonstrating a 37-39 degree thoracolumbar scoliosis. IMPRESSION: Nerve root irritation on top of thoracolumbar scoliosis on top of a delightful patient who has multiple medical issues. PLAN: I think the easiest thing to do, although will be tough was try to get her pain controlled, get her home, possibly injection or two to calm the nerve root as well, anti-inflammatories and then keep her appointment with Dr. Lopez is the best I can gather. I am not planning any urgent surgery.
--- NOTE | 2018-03-19 20:25 | Family Medicine Progress Note ---
Progress Note Date of Service Mar 19, 2018. Subjective Patient is a 47 year old woman with a past medical history significant for degenerative disc disease, bipolar disorder, migraines, and a history of opiate abuse who presented to the emergency department with intractable back pain. She describes the pain as a constant aching pain coupled with a shooting electric pain that moves down her buttock and back of her thigh. She describes the pain as worse when she goes to sit down or starts to walk. She finds extending her leg excruciating and tries to keep it bent at all times. She has been treating it with heat and tylenol. When she presented to the ER she was tachycardic with all other vital signs stable. She had an MRI which showed L1 compression, L4-5 and L5-S1 disc bulge. She was treated with oxycodone, toradol and dilaudid in the ED. Currently her pain is rated at 5/10 vs 9/10 at discharge. Constitutional: No fever, No chills, No sweats, No weight loss, No weakness Respiratory: No cough, No shortness of breath Cardiovascular: No chest pain Abdomen: No pain, No nausea, No vomiting, No diarrhea Musculoskeletal: + joint pain, + muscle pain, + problem reported (Radiating right sided lower back pain) Female : No dysuria, No urinary frequency, No incontinence Neurologic: + numbness/tingling, No memory loss, No paralysis, No weakness, No balance problems Medications Current Inpatient Medications Medications (Trade) Dose Ordered Sig/Shay Route Start Time Stop Time Status Last Admin Dose Admin Prednisone (PredniSONE TAB) 40 mg DAILY PO 03/19/18 09:00 04/18/18 08:59 03/19/18 09:54 40 MG Potassium Chloride/Dextrose/ Sod Cl 1,000 ml @ 100 mls/hr Q10H IV 03/18/18 23:30 03/19/18 19:29 03/19/18 09:53 100 MLS/HR Albuterol (Ventolin Hfa Inhaler) 2 puffs Q6H PRN INH 03/18/18 20:45 04/17/18 20:44 Apixaban (Eliquis) 5 mg BID PO 03/18/18 23:30 04/17/18 23:29 03/19/18 10:58 5 MG Escitalopram Oxalate (Lexapro Tab) 10 mg QAM PO 03/19/18 09:00 04/18/18 08:59 03/18/18 23:56 10 MG Lamotrigine (Lamictal Tab) 150 mg HS PO 03/18/18 21:00 04/17/18 20:59 03/18/18 23:56 150 MG Risperidone (Risperdal Tab) 0.5 mg BID PO 03/18/18 21:00 04/17/18 20:59 03/19/18 09:54 0.5 MG Oxycodone/ Acetaminophen (Percocet 10-325MG Tab) 1 tab Q4H PRN PO 03/18/18 21:00 04/01/18 20:59 03/19/18 16:38 1 TAB Trazodone HCl (Desyrel Tab) 75 mg HS PRN PO 03/18/18 21:15 04/17/18 20:44 03/18/18 23:57 75 MG Acetaminophen (Tylenol Tab) 650 mg Q4H PRN PO 03/18/18 21:00 04/17/18 20:59 Al Hydrox/Mg Hydrox/Simethicone (Maalox Max Susp) 15 ml Q4H PRN PO 03/18/18 21:00 04/17/18 20:59 Magnesium Hydroxide (Milk Of Magnesia Susp) 30 ml Q6H PRN PO 03/18/18 21:00 04/17/18 20:59 Polyethylene (Miralax Powder Packet) 17 gm DAILY PRN PO 03/18/18 21:00 04/17/18 20:59 Ondansetron HCl (Zofran Inj) 4 mg Q6H PRN IV 03/18/18 21:00 04/17/18 20:59 Miscellaneous (Iv Fluids Completed) 1 ea PRN PRN N/A 03/19/18 00:15 03/19/19 00:14 Assessment and Plan 47 y/o F Hx lower back pain, complex migraines, bipolar disorder, Factor V Leiden mutation with history of DVT/PE, hyperlipidemia, narcotic dependence -- with known disc herniations at L4-5, L5-S1 here with intractable back pain. Recently evaluated by orthopedics and has an appt with a software quality assurance specialist at [place] in 2 weeks. Intractable Back Pain 2/2 Disc prolapse at L4-L5 and L5-S1 - -h/o Narcotics dependence -Steroids. Received a single anti-inflammatory dose. PO narcotics. Pain down to 5/10. -Pain mx consulted. -Ortho consulted. Factor V Leiden mutation - cont Eliquis Bipolar disorder - cont Lamictal, Risperidone, Lexapro Complex Migraines - will consider triptan use as needed Full code - Apixaban prophylaxis Resident Tracking Resident Involvement: Resident Care Provided Care Provided: Adult Hospital Medicine Reviewed: Pt Seen/Exam by Me History continuing to have a lot of pain but it is better 5/10. Skin: negative: rash Neurological/Psych: positive: other (no muscle weakness, numbness/tingling) General Appearance: moderate distress Respiratory: no respiratory distress Extremities: other (no focal deficit) Neurologic/Psychiatric: alert, oriented x 3 Skin Characteristics: warm/dry Assessment/Plan Resident Physician Supervision Note: I independently interviewed and examined the patient and verified the carmona history and physical, reviewed labs and image studies, discussed the case with the resident Dr. Restrepo and agree with the findings and care plan.
[2018-03-19 23:25] VITALS: BP 105/67; PULSE 94; TEMP 36.9; O2SAT 97
[2018-03-20] MEDS ORDERED: LIDODERM (LIDOCAINE) PATCH 5% TD SCH (00:15)
[2018-03-20] MEDS: TRAZODONE HCL 50 MG TAB PO PRN (00:47)
[2018-03-20] MEDS: OXYCODONE/ACETAMINOPHEN 10/325MG TAB PO PRN ×3 (00:49→13:01)
[2018-03-20 07:48] VITALS: BP 119/75; PULSE 75; TEMP 36.5; O2SAT 98
[2018-03-20] MEDS: APIXABAN 5 MG TAB PO SCH (08:49)
[2018-03-20] MEDS: RISPERIDONE 0.5 MG TAB PO SCH (08:49)
[2018-03-20] MEDS: ESCITALOPRAM OXALATE 10 MG TAB PO SCH (08:49)
[2018-03-20] MEDS ORDERED: CYCLOBENZAPRINE HCL 5 MG TAB PO SCH (13:00)
[2018-03-20] MEDS ORDERED: OXYC-594 PO (14:43)
[2018-03-20] MEDS ORDERED: PRD20 PO (14:43)
[2018-03-20] MEDS ORDERED: FLX5 PO (14:43)
--- NOTE | 2018-03-20 15:01 | Discharge Instructions ---
Discharge Instructions Date of Service Mar 20, 2018. Admission Reason for Admission: Intractable Low Back Pain Discharge Discharge Diagnosis / Problem: Back Pain Discharge Goals Goal(s): Decrease discomfort, Improve function Activity Recommendations Activity Limitations: as noted below Lifting Limitations: gradually increase as tolerated Exercise/Sports Limitations: gradually increase as tolerated Shower/Bathe: no limitations . Instructions / Follow-Up Instructions / Follow-Up You are being discharged for intractable back pain. Please follow up with your primary care doctor within 7 days to examine you and extend your pain medications. I would also like you to follow up with either Dr. Livingston or Pain management to help manage your pain until definitive therapy. Current Hospital Diet Patient's current hospital diet: AHA Diet (Heart Healthy), Gluten Free Diet Discharge Diet Recommended Diet: Regular Diet Pending Studies Studies pending at discharge: no Medical Emergencies . Who to Call and When: Medical Emergencies: If at any time you feel your situation is an emergency, please call 911 immediately. . Non-Emergent Contact Non-Emergency issues call your: Primary Care Provider . Past History Medical & Surgical History: (1) Right lumbar radiculitis (2) Intractable low back pain . "Provider Documentation" section prepared by Kendrick Restrepo. .
[2018-03-20 15:37] VITALS: BP 119/75; PULSE 75; TEMP 36.5; O2SAT 98
[2018-03-20 15:39] VITALS: BP 109/69; PULSE 79; TEMP 36.8; O2SAT 96
--- NOTE | 2018-03-20 20:40 | Discharge Summary ---
Discharge Summary Date of Service Mar 20, 2018. Discharge Summary Admission Date: Mar 18, 2018 at 21:28 Discharge Date: Mar 20, 2018 Discharge Disposition: Home Principal Diagnosis: Intractable Back Pain Problems/Secondary Diagnoses: (1) Anticoagulants,Lt,Current Use Status: Chronic (2) Anxiety State Nos Status: Chronic (3) Asthma Status: Chronic (4) Asthma, Unspecified Status: Chronic (5) Depressive Disorder Nec Status: Chronic (6) Factor V Leiden Status: Chronic (7) History of pulmonary embolus (PE) Status: Chronic (8) Hyperlipidemia Status: Chronic (9) Oth Forms Migraine W/O Intract Mgrn W/O Status Migrainosus Status: Chronic Immunizations: Have You Had Influenza Vaccine: N/A Influenza Vaccine Date: Aug 18, 2008 History of Tetanus Vaccine?: Yes Tetanus Immunization Date: Apr 08, 2013 History of Pneumococcal: Unknown History of Hepatitis B Vaccine: No Medication Reconciliation New Medications: Cyclobenzaprine HCl (Cyclobenzaprine HCl) 5 Mg Tab 5 MG PO TID for 30 Days, #90 TAB Oxycodone/Acetaminophen 10MG/325MG (Oxycodone/Acetaminophen 10MG/325MG) 1 Tab Tab 1 TAB PO Q4H PRN for Pain for 7 Days, #28 TAB Prednisone (Prednisone) 20 Mg Tab 40 MG PO DAILY for 30 Days, #60 TAB Continued Medications: Albuterol Hfa (Ventolin Hfa) 200 Puffs/47033 Mcg Aers 1-2 PUFFS INH Q4-6HRS PRN for SOB/Wheezing Amphetamine-Dextroamphetamine 20MG (Adderall Xr 20MG) 1 Cap Cap 20 MG PO QAM Amphetamine-Dextroamphetamine 30MG (Adderall Xr 30MG) 1 Cap Cap 30 MG PO QAM Apixaban (Eliquis) 5 Mg Tab 5 MG PO BID Diclofenac Sodium (Topical) (Diclofenac Sodium) 1 % Gel 1 APPLN TOP QID PRN for Pain APPLY DIRECTED TO AFFECTED AREA(S) Escitalopram Oxalate (Escitalopram Oxalate) 10 Mg Tab 10 MG PO QAM Lamotrigine (Lamictal) 150 Mg Tab 150 MG PO HS Promethazine HCl (Promethazine HCl) 25 Mg Tab 25 MG PO Q6H PRN for Nausea Risperidone (Risperidone) 0.5 Mg Tab 0.5 MG PO BID Sumatriptan Succinate (Imitrex) 100 Mg Tab 100 MG PO UD PRN for Migraine TAKE ONE TABLET AT ONSET OF MIGRAINE, MAY REPEAT DOSE AFTER 2 HOURS IF NEEDED Trazodone HCl (Trazodone HCl) 150 Mg Tab 75 MG PO HS PRN for Insomnia Valacyclovir Hcl (Valtrex) 1 Gm Tab 1000 MG PO UD PRN for Outbreaks, TAB TAKE 2 TABLETS AT FIRST SIGN OF OUTBREAK, THEN 2 TABLETS EVERY 12 HOURS AFTER Discharge Exam Patient resting on side with knees flexed. In obvious discomfort. Patient rates pain as 6 out of 10 and says its slightly better than the 9/10 she had on admission. Patient denies any new symptoms. Exam notable for tenderness to right sacroiliac joint, and reproducible radiculopathic pain on leg straightening. Patient suffers from scoliosis clearly visible standing. Review of Systems: Constitutional: No fever, No chills, No sweats, No weight loss, No weakness , No fatigue Cardiovascular: No chest pain, No orthopnea, No edema, No claudication, No palpitations Abdomen: No pain, No nausea, No vomiting, No diarrhea, No constipation Musculoskeletal: + joint pain, + muscle pain (Sacroiliac joint pain) Genitourinary - Female: No dysuria Physical Exam: General Appearance: WD/WN, + moderate distress Respiratory/Chest: chest non-tender, lungs clear, normal breath sounds, no respiratory distress, no accessory muscle use Cardiovascular: regular rate, rhythm, no edema, no gallop, no JVD, no murmur , normal peripheral pulses Abdomen / GI: normal bowel sounds, non tender, soft Neurologic/Psychiatric: no motor/sensory deficits, normal reflexes, oriented x 3, + abnormal gait (antalgic gait) Hospital Course 47 y/o F Hx lower back pain, complex migraines, bipolar disorder, Factor V Leiden mutation with history of DVT/PE, hyperlipidemia, narcotic dependence -- with known disc herniations at L4-5, L5-S1 presented to the emergency department with intractable back pain. Recently evaluated by orthopedics and has an appt with a compound specialist at [facility] on the 09 of April. Intractable Back Pain 2/2 Disc prolapse at L4-L5 and L5-S1 - -h/o Narcotics dependence -Steroids. Received a single anti-inflammatory dose. PO narcotics. Pain down to 5/10 from 04/27 -Cyclobenzaprine for muscle relaxation added as well Evaluated by Pain mx and ortho - continue oral meds. consider outpatient epidural injection. Factor V Leiden mutation - continued home Eliquis Bipolar disorder - continued home Lamictal, Risperidone, Lexapro Total Time Spent: Greater than 30 minutes (31) This includes examination of the patient, discharge planning, medication reconciliation, and communication with other providers. Discharge Instructions Please refer to the electronic Patient Visit Report (Discharge Instructions) for additional information. Additional Copies To Alex Anders M.D.; Xu Livingston, DO; Kim Gonzales M.D. Reviewed: Pt Seen/Exam by Me History back pain better than day before. no weakness no urinary/fecal incontinence ambulated in the room. Constitutional: denies: fever General Appearance: mild distress Respiratory: no respiratory distress Extremities: other (no focal weakness) Neurologic/Psychiatric: alert, oriented x 3 Assessment/Plan Resident Physician Supervision Note: I independently interviewed and examined the patient and verified the carmona history and physical, reviewed labs and image studies, discussed the case with the resident Dr. Restrepo and agree with the findings and care plan. Time spent in discharge 35 min
== END 2018-03-20 16:30 | disposition home or self-care (01) ==
LOC: C.EDB 14:34 → C.3E 21:28 → ENRESERV 21:47
PROVIDERS: ADMIT Internal Medicine; ATTEND Family Medicine
DX: M54.16 Radiculopathy, lumbar region (principal); F31.9 Bipolar disorder, unspecified; M51.26 Other intervertebral disc displacement, lumbar region; D68.51 Activated protein C resistance; E78.5 Hyperlipidemia, unspecified; Z86.73 Personal history of transient ischemic attack (TIA), and cerebral infarction without residual deficits; Z87.01 Personal history of pneumonia (recurrent); Z86.718 Personal history of other venous thrombosis and embolism; Z86.711 Personal history of pulmonary embolism; Z90.710 Acquired absence of both cervix and uterus

== ENCOUNTER 2018-09-28 21:43 | Inpatient (IN) ==
[2018-09-28] MEDS ORDERED: METOCLOPRAMIDE HCL INJ 5 MG/ML 2 ML VIAL IV STA (22:16)
[2018-09-28] MEDS ORDERED: HYDROmorphone INJ 1 MG/ML SYRINGE IV STA (22:16)
[2018-09-28] MEDS ORDERED: DiphenhydrAMINE HCL 50 MG/ML VIAL IV STA (22:16)
[2018-09-29 00:01] LABS: Hemoglobin 11.2 g/dL (12.0-16.0); Mean Corpuscular Hgb Conc 32.9 g/dL (32-36); Mean Corpuscular Volume 91.4 fL (80-100); Mean Platelet Volume 8.6 fL (7.4-10.4); Platelet Count 749 K/uL (130-400); RDW Coefficient of Variation 14.9 % (11.5-14.5); RDW Standard Deviation 49.2 fL (36.4-46.3); Red Blood Count 3.72 M/uL (4.2-5.4); White Blood Count 26.31 K/uL (4.8-10.8)
[2018-09-29] MEDS ORDERED: HYDROmorphone INJ 1 MG/ML SYRINGE IV STA (00:17)
[2018-09-29 00:20] LABS: Albumin Globulin Ratio 0.7 (0.9-2); Albumin Level 2.8 gm/dl (3.4-5.0); BUN Creatinine Ratio 24.5 (10-20); Bilirubin,Total 0.2 mg/dl (0.2-1); Calcium 8.1 mg/dl (8.5-10.1); Creatinine Clr Calc Pharmacy 81.2 ml/min; Est GFR (Non-African American) 89.8; Globulin 3.9 gm/dl (2.5-4.0); Potassium 4.2 mmol/L (3.5-5.1); Total Protein 6.7 gm/dl (6.4-8.2)
[2018-09-29 00:50] LABS: Basophils # (auto) 0.04 K/uL (0-0.2); Basophils % (auto) 0.2 %; Eosinophils # (auto) 0.18 K/uL (0-0.5); Eosinophils % (auto) 0.7 %; Immature Granulocytes # (auto) 0.47 K/uL (0.00-0.02); Immature Granulocytes % (auto) 1.8 %; Lymphocytes # (auto) 2.41 K/uL (1.2-3.4); Lymphocytes % (auto) 9.2 %; Monocytes # (auto) 1.39 K/uL (0.11-0.59); Monocytes % (auto) 5.3 %; Neutrophils # (auto) 21.82 K/uL (1.4-6.5); Neutrophils % (auto) 82.8 %
[2018-09-29] MEDS ORDERED: TRAZODONE HCL 50 MG TAB PO PRN (02:16)
[2018-09-29] MEDS ORDERED: PROMETHAZINE HCL 25 MG TAB PO PRN (02:16)
[2018-09-29] MEDS ORDERED: POLYETHYLENE (MIRALAX) 17 GM PACK PO PRN (02:16)
[2018-09-29] MEDS ORDERED: ONDANSETRON INJ 2 MG/ML 2 ML VIAL IV PRN (02:16)
[2018-09-29] MEDS ORDERED: ALUMINUM/MAGNESIUM SUSP 30 ML UDC PO PRN (02:16)
[2018-09-29] MEDS ORDERED: DICLOFENAC SOD 1% GEL 100 GM TUBE EXT PRN (02:16)
[2018-09-29] MEDS ORDERED: ALBUTEROL HFA 8 GM INHALER INH PRN (02:16)
[2018-09-29] MEDS ORDERED: SUMAtriptan succinate 100 MG TAB PO PRN (02:16)
[2018-09-29] MEDS: OXYCODONE/ACETAMINOPHEN 5mg/325mg TAB PO PRN ×4 (02:34→22:09)
[2018-09-29] MEDS: BACLOFEN 10 MG TAB PO PRN ×2 (02:34→09:36)
--- NOTE | 2018-09-29 03:34 | Emergency Department Note ---
History of Present Illness General Chief complaint: Fall Stated complaint: FALL- S/P BACK SURGERY History of Present Illness Maximum Pain Intensity: 8 This 48-year-old presents to the ER complaining of mid to low back pain Location: Mid to low back Quality: Aching Severity: Moderate Duration: Today Timing: Patient slipped and fell down 3 steps Context: Pain persisted and she came in Modifying factors: better with rest; worse with activity Patient had scoliosis surgery 9 days ago at [facility]. She is on high-dose narcotics. She states this afternoon she slipped and fell down 3 steps. She did not hit her head. She was able to get up. She comes in now as she finally has a ride to the ER. Patient denies loss of bowel bladder control, saddle anesthesia, fever, chills, leg weakness. No other injuries per patient. Home Medications Home Medications Medication Instructions Recorded Confirmed Type albuterol sulfate [Ventolin HFA] 1 - 2 puff INHALATION Q4 PRN 06/07/18 09/28/18 History dextroamphetamine-amphetamine 30 mg PO QAM 06/07/18 09/28/18 History [Adderall XR] diclofenac sodium 2 g TOPICAL DIRECTED PRN 06/07/18 09/28/18 History lamotrigine [Lamictal] 150 mg PO HS 06/07/18 09/28/18 History promethazine 25 mg PO Q6H PRN 06/07/18 09/28/18 History risperidone 0.5 mg PO BID 06/07/18 09/28/18 History sumatriptan succinate [Imitrex] 100 mg PO DIRECTED PRN 06/07/18 09/28/18 History trazodone 75 mg PO HS PRN 06/07/18 09/28/18 History valacyclovir [Valtrex] 1,000 mg PO DIRECTED PRN 06/07/18 09/28/18 History [facility] Powder 1 packet PO DAILY 06/08/18 09/28/18 History calcium carbonate-vitamin D3 1 cap PO DAILY 06/08/18 09/28/18 History [Calcium 600 + D(3)] fish,bora,flax oils-om3,6,9no1 1 cap PO DAILY 06/08/18 09/28/18 History [[place] 3-6-9] protein supplement 1 packet PO DAILY 06/08/18 09/28/18 History oxycodone-acetaminophen [Percocet] 1 tab PO Q4H PRN #18 tab 06/10/18 09/28/18 Rx apixaban [Eliquis] 2.5 mg PO BID 09/28/18 09/28/18 History diazepam [Valium] 5 mg PO TID PRN 09/29/18 09/29/18 History escitalopram oxalate [Lexapro] 20 mg PO DAILY 09/29/18 09/29/18 History magnesium 250 mg PO DAILY 09/29/18 09/29/18 History prednisone 30 mg PO DAILY 09/29/18 09/29/18 History Allergies Allergy/AdvReac Type Severity Reaction Status Date / Time dexamethasone [From Decadron] AdvReac Intermediate WHOLE BODY Verified 09/28/18 23:45 FELT LIKE BURNING INSIDE. tramadol AdvReac Unknown Adverse Verified 09/28/18 23:45 results with other prescribed medications Past Med/Surg History Medical History History of pulmonary embolism Last episode in 2008. On eliquis; last dose on Friday Factor V Leiden Bipolar disorder Asthma Only uses inhaler during illness. Last use was over few months ago. H/o hospitalization as a child TIA (transient ischemic attack) Weakness on right side. No residual weakness. Surgical History Status post rotator cuff repair H/O cystoscopy 2012-mac 3 gr I view, #7.0 ETT History of hysterectomy Family History Other Family history non-contributory Social History marital status: Current Living Situation: Family Feels Safe at Home: Yes Safety Concerns: Feels Safe At This Time Smoking Status: Never smoker Hx Alcohol Use: Yes Alcohol type: beer and wine Alcohol Intake Frequency: holidays/special occasions only Hx Substance Use: Yes substance use type: painkillers Beliefs That Will Affect Care: None Communication Ability: Effective Review of Systems All systems reviewed & are unremarkable except as noted in HPI & below Physical Exam Vital Signs Vital Signs - 24 hr 02/11/19 21:51 09/29/18 01:14 09/29/18 02:08 Temperature 36.6 C 36.8 C Temperature Source Oral Oral Sepsis Recent Fever Within 48 Hours No Sepsis Action Taken by Nursing No Action Required Pulse Rate 83 Pulse Rate [Right Finger] 71 75 Pulse Rhythm [Right Finger] Regular Regular Pulse Strength [Right Finger] Normal Normal Respiratory Rate 18 18 17 Respiratory Effort / Characteristics Non-Labored Spontaneous Non-Labored Spontaneous Respiratory Depth Normal Normal Normal Respiratory Pattern Regular Regular Regular Blood Pressure 108/64 Blood Pressure [Right Arm] 112/66 122/72 Blood Pressure Mean 78 Blood Pressure Mean [Right Arm] 81 88 Blood Pressure Position [Right Arm] Lying Sitting Pulse Oximetry 96 94 99 Oxygen Delivery Method Room Air Room Air Room Air 09/29/18 07:37 Temperature 36.5 C Temperature Source Oral Sepsis Recent Fever Within 48 Hours Sepsis Action Taken by Nursing Pulse Rate Pulse Rate [Right Finger] 75 Pulse Rhythm [Right Finger] Pulse Strength [Right Finger] Respiratory Rate 16 Respiratory Effort / Characteristics Respiratory Depth Respiratory Pattern Blood Pressure Blood Pressure [Right Arm] 111/71 Blood Pressure Mean Blood Pressure Mean [Right Arm] 84 Blood Pressure Position [Right Arm] Lying Pulse Oximetry 98 Oxygen Delivery Method PHYSICAL EXAM: VITALS: Vitals are noted on the nurse's note and reviewed by myself. Vital signs stable. GENERAL: White female shaking in pain, in no acute distress, nondiaphoretic, well-developed well-nourished. SKIN: The skin was without obvious lacerations or abrasions. Capillary reflex less than 2 seconds. HEAD: Normocephalic atraumatic. EARS: External auditory canals clear, tympanic membranes pearly domínguez without erythema or effusion bilaterally. No hemotympanums. No marcelino sign. No mastoid tenderness. EYES: Pupils equal round and reactive to light and accommodation. Conjunctivae without injection, sclerae without icterus. Extraocular movements intact. NOSE: Patent, turbinates without inflammation or discharge. No sinus tenderness. No septal hematoma or bleeding. MOUTH: Mucous membranes moist. Pharynx without erythema or exudate. Uvula midline. Airway patent. Tongue does not deviate. NECK: Supple without nuchal rigidity. Cervical spine is nontender. Full range of motion of the neck without tenderness. No JVD. HEART: Regular rate and rhythm LUNGS: Clear to auscultation bilaterally without wheezes, rales or rhonchi. No dullness to percussion. No retractions or accessory muscle use. ABDOMEN: Positive bowel sounds x 4. Normal tympanic percussion. Soft, nontender, without masses or organomegaly. No guarding or rebound tenderness. MUSCULOSKELETAL: tenderness of the thoracic and lumbar spine. Incisional site intact without signs of dehiscence or hematoma. No tenderness with pelvic rocking. Full range of motion without tenderness to palpation in all extremities. Normal gait. Strength 5/5 throughout. Peripheral pulses 2+. Negative straight leg raise bilaterally. NEURO: Patient was alert and oriented to person place and time. Normal sensation to light and sharp touch. Negative Romberg and pronator drift. Cerebellar function intact. No focal neurological deficits. Course Administered Medications Apixaban (Eliquis) 2.5 mg PO BID [facility] Stop: 10/29/18 08:59 Last Admin: 09/29/18 09:29 Dose: 2.5 mg Baclofen (Lioresal) 10 mg PO TID PRN PRN Reason: Muscle Spasm Stop: 10/29/18 02:15 Last Admin: 09/29/18 09:36 Dose: 10 mg Admin: 09/29/18 02:34 Dose: 10 mg Diazepam (Valium) 5 mg PO TID PRN PRN Reason: Muscle Spasticity Stop: 10/29/18 02:15 Last Admin: 09/29/18 06:36 Dose: 5 mg Diphenhydramine HCl (Benadryl) 12.5 mg IV Q3H PRN PRN Reason: Itching Stop: 10/29/18 09:38 Last Admin: 09/29/18 12:40 Dose: 12.5 mg Escitalopram Oxalate (Lexapro) 20 mg PO DAILY [facility] Stop: 10/29/18 08:59 Last Admin: 09/29/18 09:30 Dose: 20 mg Hydromorphone HCl (Dilaudid) 1 mg IV Q3H PRN PRN Reason: Pain Stop: 10/13/18 02:15 Last Admin: 09/29/18 12:40 Dose: 1 mg Admin: 09/29/18 07:37 Dose: 1 mg Admin: 09/29/18 03:36 Dose: 1 mg Magnesium Oxide (Mag-Ox) 400 mg PO DAILY [facility] Stop: 10/29/18 08:59 Last Admin: 09/29/18 09:30 Dose: 400 mg Multivitamins/Minerals (Caltrate Plus) 1 tab PO DAILY MIN Stop: 10/29/18 08:59 Last Admin: 09/29/18 09:30 Dose: 1 tab Oxycodone/Acetaminophen (Percocet 5mg/325mg) 1 tab PO Q4H PRN PRN Reason: pain Stop: 10/13/18 02:15 Last Admin: 09/29/18 10:33 Dose: 1 tab Admin: 09/29/18 06:36 Dose: 1 tab Admin: 09/29/18 02:34 Dose: 1 tab Prednisone (Prednisone) 30 mg PO DAILY MIN Stop: 10/29/18 08:59 Last Admin: 09/29/18 09:30 Dose: 30 mg Risperidone (Risperdal) 0.5 mg PO BID MIN Stop: 10/29/18 08:59 Last Admin: 09/29/18 09:30 Dose: 0.5 mg Discontinued Medications Diphenhydramine HCl (Benadryl) 25 mg IV NOW STA Stop: 09/28/18 22:17 Last Admin: 09/28/18 22:38 Dose: 25 mg Hydromorphone HCl (Dilaudid) 1 mg IV NOW STA Stop: 09/28/18 22:17 Last Admin: 09/28/18 22:38 Dose: 1 mg Hydromorphone HCl (Dilaudid) 1 mg IV NOW STA Stop: 09/29/18 00:18 Last Admin: 09/29/18 00:25 Dose: 1 mg Metoclopramide HCl (Reglan) 10 mg IV NOW STA Stop: 09/28/18 22:17 Last Admin: 09/28/18 22:38 Dose: 10 mg Medical Decision Making Medical Records Attestation: I reviewed the patient's medical records. Home Medications Current Medication List: was personally reviewed by me Laboratory Data Attestation: I reviewed the patient's lab results. Result diagrams: 09/29/18 07:05 09/29/18 07:05 Lab Results 09/28/18 09/28/18 09/29/18 Range/Units 23:54 23:54 07:05 WBC 26.31 H 27.21 H (4.8-10.8) K/uL RBC 3.72 L 3.75 L (4.2-5.4) M/uL Hgb 11.2 L 11.2 L (12.0-16.0) g/dL Hct 34.0 L 34.4 L (37-47) % MCV 91.4 91.7 (80-100) fL MCH 30.1 29.9 (25-34) pg MCHC 32.9 32.6 (32-36) g/dL RDW Std Deviation 49.2 H 50.5 H (36.4-46.3) fL RDW Coeff of Augustina 14.9 H 15.1 H (11.5-14.5) % Plt Count 749 H 718 H (130-400) K/uL MPV 8.6 8.6 (7.4-10.4) fL Immature Gran % (Auto) 1.8 1.7 % Neut % (Auto) 82.8 79.5 % Lymph % (Auto) 9.2 10.3 % Knott % (Auto) 5.3 6.9 % Eos % (Auto) 0.7 1.4 % Baso % (Auto) 0.2 0.2 % Immature Gran # (Auto) 0.47 H 0.45 H (0.00-0.02) K/uL Neut # (Auto) 21.82 H 21.63 H (1.4-6.5) K/uL Lymph # (Auto) 2.41 2.80 (1.2-3.4) K/uL Knott # (Auto) 1.39 H 1.89 H (0.11-0.59) K/uL Eos # (Auto) 0.18 0.38 (0-0.5) K/uL Baso # (Auto) 0.04 0.06 (0-0.2) K/uL Toxic Vacuolation 1+ Sodium 139 (136-145) mmol/L Potassium 4.2 (3.5-5.1) mmol/L Chloride 106 (98-107) mmol/L Carbon Dioxide 27 (21-32) mmol/L Anion Gap 6.0 (3-11) BUN 19 H (7-18) mg/dl Creatinine 0.79 (0.6-1.2) mg/dl Est Cr Clr Drug Dosing 81.2 ml/min Est GFR ( Amer) 104.0 Est GFR (Non-Af Amer) 89.8 BUN/Creatinine Ratio 24.5 H (10-20) Glucose 133 H (70-99) mg/dl Calcium 8.1 L (8.5-10.1) mg/dl Magnesium (1.8-2.4) mg/dl Total Bilirubin 0.2 (0.2-1) mg/dl AST 20 (15-37) U/L ALT 43 (12-78) U/L Alkaline Phosphatase 164 H (45-117) U/L Total Protein 6.7 (6.4-8.2) gm/dl Albumin 2.8 L (3.4-5.0) gm/dl Globulin 3.9 (2.5-4.0) gm/dl Albumin/Globulin Ratio 0.7 L (0.9-2) Specimen Hemolysis 09/29/18 Range/Units 07:05 WBC (4.8-10.8) K/uL RBC (4.2-5.4) M/uL Hgb (12.0-16.0) g/dL Hct (37-47) % MCV (80-100) fL MCH (25-34) pg MCHC (32-36) g/dL RDW Std Deviation (36.4-46.3) fL RDW Coeff of Augustina (11.5-14.5) % Plt Count (130-400) K/uL MPV (7.4-10.4) fL Immature Gran % (Auto) % Neut % (Auto) % Lymph % (Auto) % Knott % (Auto) % Eos % (Auto) % Baso % (Auto) % Immature Gran # (Auto) (0.00-0.02) K/uL Neut # (Auto) (1.4-6.5) K/uL Lymph # (Auto) (1.2-3.4) K/uL Knott # (Auto) (0.11-0.59) K/uL Eos # (Auto) (0-0.5) K/uL Baso # (Auto) (0-0.2) K/uL Toxic Vacuolation Sodium 137 (136-145) mmol/L Potassium 3.6 (3.5-5.1) mmol/L Chloride 105 (98-107) mmol/L Carbon Dioxide 26 (21-32) mmol/L Anion Gap 6.0 (3-11) BUN 19 H (7-18) mg/dl Creatinine 0.79 (0.6-1.2) mg/dl Est Cr Clr Drug Dosing 83.3 ml/min Est GFR ( Amer) 104.0 Est GFR (Non-Af Amer) 89.8 BUN/Creatinine Ratio 24.4 H (10-20) Glucose 124 H (70-99) mg/dl Calcium 8.2 L (8.5-10.1) mg/dl Magnesium 2.2 (1.8-2.4) mg/dl Total Bilirubin (0.2-1) mg/dl AST (15-37) U/L ALT (12-78) U/L Alkaline Phosphatase (45-117) U/L Total Protein (6.4-8.2) gm/dl Albumin (3.4-5.0) gm/dl Globulin (2.5-4.0) gm/dl Albumin/Globulin Ratio (0.9-2) Specimen Hemolysis Prescription Drug Monitoring [place] Drug Monitoring Program reviewed and findings noted below Prescription Drug Findings: High-dose narcotics MDM Narrative Prior records/ancillary studies reviewed. Triage Nursing notes reviewed. Additional history obtained from family. The patient's history was concerning for back pain. Differential diagnosis: Etiologies such as musculoskeletal, disc herniation, fracture, aortic disease, metastatic disease, cord compression, discitis, infection, renal colic, gastrointestinal, acute exacerbation of chronic back pain, sciatica, cauda equina, as well as others were entertained. Physical findings: As above. No focal neurologic findings noted. ER treatment provided: IV Dilaudid, Benadryl, Reglan On reassessment the patient felt better. Diagnostics interpreted by me: The labs revealed leukocytosis. Patient states she chronically has a elevated white blood count Imaging studies: CT L SPINE: No acute fracture. Hardware intact and in place Radiologist: Des Boateng MD CT T SPINE: No evidence of fracture or malalignment. Radiologist: Des Boateng MD Study ready at 23:14 and initial results transmitted Consultation: A consultation was placed with the hospitalist. The case was discussed and diagnostics were reviewed. He will evaluate the patient for possible admission. This appears to be consistent with fall with intractable back pain. Patient was crying and states she cannot go home this much amount of pain. She is requesting admission. Medicine was consulted. By the evaluation outlined above emergent etiologies such as fracture, aortic disease, metastatic disease, infection, renal colic, gastrointestinal, cord compression, cauda equina, as well as others were deemed relatively unlikely. The pt informed about the findings as listed above. All questions were answered and pleased with the treatment. Case reviewed with my attending The chart was completed utilizing [employer] Speech voice recognition software. Grammatical errors, random word insertions, pronoun errors, and incomplete sentences are an occassional consequence of this system due to software limitations, ambient noise, and hardware issues. Any formal questions or concerns about the content, text, or information contained within the body of this dictation should be directly addressed to the physician college sports assistant for clarification. Impression & Plan Fall, Intractable back pain Discharge Plan Visit Data *Final* Discharge Date/Time: 09/29/18 01:55 Chief Complaint: Fall Stated Complaint: FALL- S/P BACK SURGERY ED Provider: James Goncalves ED Midlevel Provider: Janeth Miller Discharge Problem: Fall, Intractable back pain Patient Disposition: Admitted As Inpatient Condition: Good Discharge Instructions Interventions: ED Discharge Assessment Last Done: 09/29/18 01:55
[2018-09-29] MEDS: HYDROmorphone INJ 1 MG/ML SYRINGE IV PRN ×3 (03:36→12:40)
--- NOTE | 2018-09-29 03:53 | History and Physical Report ---
DATE OF ADMISSION: 09/28/2018 CHIEF COMPLAINT: Status post mechanical fall and severe back pain. HISTORY OF PRESENT ILLNESS: This is a 48-year-old female with past medical history significant for asthma, history pulmonary embolism, history of factor V Leiden deficiency, obsessive compulsive disorder, history of adolescent idiopathic scoliosis of thoracolumbar region, status post surgery on 09/16/2018 at [facility] presents because of fall in the steps on the back and having severe pain requesting for pain medications. Otherwise, she was doing okay after the surgery. After surgery, she was started on prednisone taper. There is some mild headache, no blurred vision, no runny nose, no sore throat, no difficulty swallowing, sleeping okay. Appetite is okay. No recent weight gain or weight loss. No chest pain, no shortness of breath, no cough. 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 She has some left lower quadrant abdominal pain that has been there prior to surgery but is getting better. Recently, had a thoracolumbar spinal surgery for scoliosis and there is some incisions also on the left lower quadrant of abdomen. Incision site looks okay of the back. Denies any constipation, no diarrhea, no blood in the stool or black stools. Normal bladder movements. Resting comfortably and hemodynamically stable. ALLERGIES: TO MOLD, SMUTS, DUST, POLLEN, AND TRAMADOL. PAST MEDICAL HISTORY: As mentioned above. PAST SURGICAL HISTORY: Left arthroscopy, breast surgery, diagnostic colonoscopy, sinus surgery, laparoscopic cholecystectomy, lumbar spine fusion surgery, removal of the left wrist lesion, pelvic laparoscopy. MEDICATIONS: The patient is on Eliquis 2.5 mg p.o. b.i.d., Valium 5 mg p.o. t.i.d. p.r.n. for spasms, Colace 100 mg p.o. b.i.d., oxycodone 10 mg p.o. 4 hours p.r.n., MiraLax 17 g p.o. daily p.r.n., prednisone tapering dose, albuterol 2 puffs every 6 hours p.r.n., magnesium 250 mg p.o. daily, [place] 3 1000 mg p.o. daily, Phenergan 25 mg p.o. t.i.d. p.r.n., Risperdal 1 mg p.o. at bedtime, Valtrex 100 mg p.o. b.i.d. p.r.n.,Imitrex 100 mg p.o. onset of migraines, p.r.n., trazodone 75 mg p.o. at bedtime p.r.n., Adderall-XR 30 mg p.o. daily, Lamictal 150 mg p.o. at bedtime, multivitamin p.o. daily, Lexapro 20 mg p.o. daily. FAMILY HISTORY: Significant for mother had osteoarthritis, blood disorder. Father has diabetes, high cholesterol, hypertension. Maternal and paternal grandmothers had stroke. Sister has factor V Leiden mutation. SOCIAL HISTORY: . No smoking. Alcohol occasional. No drug use. REVIEW OF SYMPTOMS: As per HPI. Rest of review of symptoms negative. PHYSICAL EXAMINATION: GENERAL: The patient is of moderate build, not in acute distress. VITAL SIGNS: Temperature 36.6, pulse 83, respiratory rate 18, blood pressure 108/64. Oxygen 96% on room air. HEENT: No pallor, no icterus. Pupils equal, round, and reactive to light. NECK: No JVD, no neck masses, no carotid bruits. CARDIOVASCULAR: S1, S2 heard, regular rate and rhythm, no murmur, no gallop. RESPIRATORY: Normal AP diameter. No accessory muscle use. No wheezing, no crackles. ABDOMEN: Soft, bowel sounds present. Mild tenderness in the surgical incision site in the left lower quadrant. No guarding or rigidity. CENTRAL NERVOUS SYSTEM: Cranial nerves II through XII grossly intact. Nonfocal. MUSCULOSKELETAL: Spinal fusion surgery in the thoracolumbar region. Site is clean. EXTREMITIES: No edema, no erythema. LABS: WBC 26, hemoglobin 11.2, hematocrit 34, platelets 749. Sodium 139, potassium 4.2, chloride 106, bicarbonate 27, BUN 19, creatinine 0.7, serum glucose 133, calcium 8.1, total bilirubin 0.2, AST 20, ALT 43, alkaline phosphatase is 164. Thoracic spine and lumbar spine CT unofficial report unremarkable. ASSESSMENT AND PLAN: This is a 48-year-old female who recently had spinal fusion surgery of thoracolumbar spine for idiopathic scoliosis presents with a mechanical fall on steps on the back and presents with severe back pain. 1. Severe back pain and recent back surgery. Spinal surgery for idiopathic scoliosis of the thoracolumbar region at [facility]. Incision site looks fine. CAT scan unofficial report unremarkable. We will follow the official report. The patient has significant requirement for pain medications. We will observe on the medical floor. IV Dilaudid as needed. Continue physical therapy, occupational therapy, and monitor. 2. Leukocytosis. This could be because of prednisone use. There are no obvious signs of infection, but we will follow repeat labs. 3. Thrombocytosis, getting worse. The patient is not anemic. It could be from the recent surgery. We will consider consulting hematology/oncology. We will follow the labs in morning. 4. History of factor V Leiden deficiency. 5. History of pulmonary embolism on Eliquis. 6. History of obsessive compulsive disorder, on Lexapro, Adderall, and Risperdal, which will be continued. 7. Deep vein thrombosis prophylaxis. The patient is on Eliquis. DISPOSITION: Observation to medical floor. Expect to discharge home. PT, OT prior to discharge. , Social Service to help with discharge planning. ENRIQUE
[2018-09-29] MEDS: diazePAM 5 MG TABLET PO PRN (06:36)
--- NOTE | 2018-09-29 06:58 | CT Scan Report ---
CT thoracic spine wo con CT DOSE: 1179.71 mGy.cm CLINICAL HISTORY: Back pain status post trauma. Recent surgery. Patient on anticoagulants. TECHNIQUE: Helical images were acquired in transverse plane. Sagittal and coronal reformatted images were acquired. A dose lowering technique was utilized adhering to the principles of ALARA. COMPARISON STUDY: Commensurate radiographic study performed July 2012, scoliosis series dated FINDINGS: There are postsurgical changes of thoracoabdominal spinal rodding with pedicle screws and a djoining spinal rods visualized extending from the T10 level into the lumbar spine. There is an age-i ndeterminate superior endplate L1 compression deformity. There are no subluxations. There are depende nt atelectatic changes. There are no significant pleural effusions. IMPRESSION: 1. Postsurgical changes of prior spinal rodding of posterior fusion 2. No thoracic spine fractures or subluxations identified 3. Mild age-indeterminate superior endplate L1 compression deformity Electronically signed by: Cristobal Rivera M.D. 09/29/2018 6:57 AM
[2018-09-29 07:18] LABS: Hematocrit (blood only) 34.4 % (37-47); Hemoglobin 11.2 g/dL (12.0-16.0); Mean Corpuscular Hgb Conc 32.6 g/dL (32-36); Mean Corpuscular Volume 91.7 fL (80-100); Mean Platelet Volume 8.6 fL (7.4-10.4); Platelet Count 718 K/uL (130-400); RDW Coefficient of Variation 15.1 % (11.5-14.5); RDW Standard Deviation 50.5 fL (36.4-46.3); Red Blood Count 3.75 M/uL (4.2-5.4); White Blood Count 27.21 K/uL (4.8-10.8)
[2018-09-29 07:39] LABS: Basophils # (auto) 0.06 K/uL (0-0.2); Basophils % (auto) 0.2 %; Eosinophils # (auto) 0.38 K/uL (0-0.5); Eosinophils % (auto) 1.4 %; Immature Granulocytes # (auto) 0.45 K/uL (0.00-0.02); Immature Granulocytes % (auto) 1.7 %; Lymphocytes % (auto) 10.3 %; Monocytes # (auto) 1.89 K/uL (0.11-0.59); Monocytes % (auto) 6.9 %; Neutrophils # (auto) 21.63 K/uL (1.4-6.5); Neutrophils % (auto) 79.5 %; Toxic Vacuolation 1+
[2018-09-29 07:52] LABS: BUN Creatinine Ratio 24.4 (10-20); Calcium 8.2 mg/dl (8.5-10.1); Creatinine Clr Calc Pharmacy 83.3 ml/min; Est GFR (Non-African American) 89.8; Magnesium 2.2 mg/dl (1.8-2.4); Potassium 3.6 mmol/L (3.5-5.1)
--- NOTE | 2018-09-29 08:02 | CT Scan Report ---
CT OF THE LUMBAR SPINE WITHOUT CONTRAST CLINICAL HISTORY: fall on eliquis, recent bk OR COMPARISON STUDY: Lumbar spine CT March 29, 2013 and lumbar spine MRI March 18, 2018. TECHNIQUE: Axial images of the lumbar spine were obtained without IV contrast. Sagittal and coronal r econstructions were viewed. Study was performed utilizing automated exposure control for dose reducti on and according to ALARA principles. FINDINGS: For purposes of numbering on this exam, the L5-S1 disc space is assigned to axial image 254 of 301. Thoracic spine CT will be reported separately. The patient is status post T10-S1 posterior d ecompression with bilateral pedicle screw fusion and anterior fusion L4-L5 and L5-S1. Bone graft mate rial is noted. Trace retroperitoneal fluid and extraluminal gas is postsurgical. Mild loss of height of the superior endplate of L1 is unchanged exam of March 18, 2018. This is chronic. There are acute appearing nondisplaced fractures of the left transverse processes of L3, L4 and L5. There is also a m inimally displaced fracture through the anterior superior endplate of S1. Sacroiliac joints are intac t. Hyperdense material within the appendix is noted. The hardware is intact. IMPRESSION: 1. Status post T10-S1 posterior decompression and bilateral posterior fusion and L4-L5 and L5-S1 ante rior fusions. Hardware intact. 2. Acute appearing nondisplaced fractures of the left transverse processes of L3, L4 and L5 and an ac port gamble appearing minimally displaced fracture of the superior endplate of S1. Discussed with Dr. [place] at time of dictation. Electronically signed by: Norman Wilson M.D. 09/29/2018 8:01 AM
[2018-09-29] MEDS ORDERED: APIXABAN 2.5 MG TAB PO SCH (09:00)
[2018-09-29] MEDS ORDERED: PROTEIN SUPPLEMENT PO SCH (09:00)
[2018-09-29] MEDS: risperiDONE 0.5 MG TABLET PO SCH ×2 (09:30→20:47)
[2018-09-29] MEDS: ESCITALOPRAM OXALATE 20 MG TAB PO SCH (09:30)
[2018-09-29] MEDS: predniSONE 10 MG TABLET PO SCH (09:30)
[2018-09-29] MEDS: CALCIUM 600MG + VIT D 400 IU TAB PO SCH (09:30)
[2018-09-29] MEDS: MAGNESIUM OXIDE 400 MG TAB PO SCH (09:30)
[2018-09-29] MEDS: DiphenhydrAMINE HCL 50 MG/ML VIAL IV PRN ×3 (12:40→19:33)
[2018-09-29] MEDS: HYDROmorphone INJ 2 MG/ML SYR/VIAL IV PRN ×2 (15:49→19:32)
--- NOTE | 2018-09-29 15:51 | Hospitalist Progress Note ---
Date of Service September 29, 2018 Assessment & Plan (1) Fall: Patient reports of tripping on the carpet H on stairways, Losing balance and falling down the stairs The incident happened approximately 3 days back Was not able to come to ER�did not had ride CT of lumbar spine shows: 1. Status post T10-S1 posterior compression decompression and bilateral posterior fusion and L4-L5 and L5-S1 anterior fusions Hardware intact 2. Acute appearing nondisplaced fractures of the left transverse process of L3 , L4 and L5 and an acute appearing minimally displaced fracture of the superior endplate of S1 -Patient had lumbar spinal decompression surgery done on 09/16/2018 for idiopathic scoliosis of thoracolumbar region at [facility] Result of CT lumbar spine discussed with Dr. Lujan Given the fact these are nondisplaced, transverse process fractures, no surgical procedure indicated Conservative management, with pain control, lumbar brace, bowel regimen Patient will be seen by Dr. Lujan tomorrow Present on Admission?: Yes (2) Intractable back pain: History of adolescent idiopathic scoliosis of the thoracolumbar region Status post arthrodesis of anterior lumbar spine on 09/16/[address] Robles at [facility] Patient had uncomplicated postop recovery, discharged home on 09/24/2018 Patient reports was able to walk, do her ADLs, without any discomfort, till she had the accident/ falling down the stairs CT of lumbar spine as outlined above Spinal surgery Dr. Lujan consulted Consult orthotics, for thoracolumbar brace Present on Admission?: Yes (3) History of pulmonary embolism: Primary hypercoagulable state with factor V Leiden Patient is continued with Eliquis Present on Admission?: Yes (4) Factor V Leiden: History of iatrogenic pulmonary embolism and infarction Continue Eliquis Present on Admission?: Yes (5) Leukocytosis, unspecified: White count elevated: Patient is on prednisone post lumbar surgery On taper dose No evidence of infection noted No fever or chills Follow CBC (6) Bipolar disorder: Continue Lamictal She is also on Adderall XR-continued Lexapro 20 mill grams daily (7) Status post lumbar spine surgery for decompression of spinal cord: Had spinal decompression surgery done on 09/16/2018 at [facility]-by Dr. Lopez Postop follow-up scheduled with Dr. Lopez on 10/13/2018 at 9:45 AM at orthopedics [facility] CODE STATUS: Full code DVT prophylaxis: Patient is on Eliquis Primary CARE physician: Dr. Alex Anders MD [facility] physician group Patient does not want to be followed with [facility] hospitalist: Concern that her insurance may not cover for [facility] hospitalist visit Patient is signed out to [facility] physician group hospitalist: Dr. Cortes for continuity of care Subjective Complaints of intractable back pain, having minimum relief with IV Dilaudid as needed Request for IV Benadryl to be given with Dilaudid,-that is the only combination giving her some relief No complaint of fever or chills, No bladder or bowel incontinence No shortness of breath,no chest heaviness, no cough Physical Exam 2 Vital Signs (Past 24 Hours): Last Vital Signs Temp 36.4 C L 09/29/18 15:30 Pulse 81 09/29/18 15:30 Resp 16 09/29/18 15:30 BP 113/73 09/29/18 15:30 Pulse Ox 94 09/29/18 15:30 Physical Exam: GENERAL: No sign of distress, HEENT: Sclera nonicteric, pink-purple bilateral equal reactive to light extraocular muscle intact Normal oral mucosa, neck: No JVD, no thyromegaly, trachea midline Lungs: Clear to auscultate, no wheeze or rales Cardiovascular: Regular S1 and S2, no murmur or gallop, no JVD, no lower extremity edema Abdomen: Soft, nontender, bowel sounds active, no hepatosplenomegaly Extremities: No rash or deformity, normal joint, Neuro: No focal neurological deficit, no dysarthria, no facial droop Psych: Alert awake oriented x3: Euthymic Skin: No rash LYMPH NODES: No cervical lymphadenopathy _ (1) Bipolar disorder Active/Remission status: remission status unspecified Qualified Code(s): F31.9 - Bipolar disorder, unspecified (2) Fall Encounter type: initial encounter Qualified Code(s): W19.XXXA - Unspecified fall, initial encounter (3) Leukocytosis, unspecified Leukocytosis type: unspecified Qualified Code(s): D72.829 - Elevated white blood cell count, unspecified
[2018-09-29] MEDS ORDERED: CYCLOBENZAPRINE HCL 10 MG TAB PO PRN (15:58)
[2018-09-29] MEDS: APIXABAN 2.5 MG TAB PO SCH (20:41)
[2018-09-29] MEDS: lamoTRIgine 100 MG TAB PO SCH (20:46)
[2018-09-29] MEDS: POLYETHYLENE (MIRALAX) 17 GM PACK PO SCH (20:46)
[2018-09-30] MEDS: HYDROmorphone INJ 2 MG/ML SYR/VIAL IV PRN ×5 (03:43→20:07)
[2018-09-30] MEDS: DiphenhydrAMINE HCL 50 MG/ML VIAL IV PRN ×3 (03:43→11:38)
[2018-09-30 05:46] LABS: Basophils # (auto) 0.06 K/uL (0-0.2); Basophils % (auto) 0.3 %; Eosinophils # (auto) 0.71 K/uL (0-0.5); Eosinophils % (auto) 3.1 %; Hematocrit (blood only) 35.3 % (37-47); Hemoglobin 11.3 g/dL (12.0-16.0); Immature Granulocytes # (auto) 0.42 K/uL (0.00-0.02); Immature Granulocytes % (auto) 1.8 %; Lymphocytes # (auto) 3.52 K/uL (1.2-3.4); Lymphocytes % (auto) 15.2 %; Mean Corpuscular Volume 92.2 fL (80-100); Mean Platelet Volume 8.6 fL (7.4-10.4); Monocytes # (auto) 1.63 K/uL (0.11-0.59); Monocytes % (auto) 7.1 %; Neutrophils # (auto) 16.78 K/uL (1.4-6.5); Neutrophils % (auto) 72.5 %; Platelet Count 691 K/uL (130-400); RDW Coefficient of Variation 15.3 % (11.5-14.5); Red Blood Count 3.83 M/uL (4.2-5.4); White Blood Count 23.12 K/uL (4.8-10.8)
[2018-09-30 06:28] LABS: BUN Creatinine Ratio 30.2 (10-20); Calcium 8.3 mg/dl (8.5-10.1); Creatinine Clr Calc Pharmacy 87.7 ml/min; Est GFR (African American) 110.8; Est GFR (Non-African American) 95.6; Magnesium 2.3 mg/dl (1.8-2.4); Potassium 4.2 mmol/L (3.5-5.1)
[2018-09-30] MEDS: APIXABAN 2.5 MG TAB PO SCH ×2 (07:53→20:09)
[2018-09-30] MEDS: ESCITALOPRAM OXALATE 20 MG TAB PO SCH (07:53)
[2018-09-30] MEDS: POLYETHYLENE (MIRALAX) 17 GM PACK PO SCH ×3 (07:53→20:10)
[2018-09-30] MEDS: MAGNESIUM OXIDE 400 MG TAB PO SCH (07:53)
[2018-09-30] MEDS: risperiDONE 0.5 MG TABLET PO SCH ×2 (07:53→20:11)
[2018-09-30] MEDS: predniSONE 10 MG TABLET PO SCH (07:53)
[2018-09-30] MEDS: CALCIUM 600MG + VIT D 400 IU TAB PO SCH (07:53)
[2018-09-30] MEDS ORDERED: OXYCODONE HCL IR 5 MG TAB (IMMEDIATE RELEASE) PO PRN (13:03)
--- NOTE | 2018-09-30 15:11 | Orthopedic Consultation ---
Date of Consultation September 30, 2018 Assessment & Plan (1) Intractable back pain: Along stress with this patient reviewing her CAT scan findings and clinical course. All of her instrumentation appears to be in excellent position and alignment. The transverse process fracture is noted on the CAT scans will heal nicely on their own and she is already stabilized. I suspect the majority of her pain will improve over the next 24-48 hours and she was able to return home. She is to maintain her appointment with her [facility] spine physician as scheduled. There is no further need for intervention at this point. Present on Admission?: Yes History of Present Illness Reason for Consultation: Back pain Attending Physician: Xu Dawson MD History of Present Illness This is a very pleasant 48-year-old female that is status post thoracolumbar decompression fusion on September 16 of this year. She was doing nicely postoperatively but had a fall yesterday down her steps. She states she landed on her buttocks. She had onset of significant back discomfort after the hole was seen in the emergency room and subsequently admitted. Today she denies any clear radicular complaints most of her pain is at the lumbosacral junction. She has some radiation into the upper thighs. She states majority of the symptoms were present preop and postoperatively. They are not necessarily exacerbated secondary to the fall. Her pain is relatively well controlled with IV Dilaudid and Benadryl. She denies any loss of bowel or bladder function. She states she has been able to be up and ambulatory on her own and using the bathroom. Allergies Allergy/AdvReac Type Severity Reaction Status Date / Time dexamethasone [From Decadron] AdvReac Intermediate WHOLE BODY Verified 09/28/18 23:45 FELT LIKE BURNING INSIDE. tramadol AdvReac Unknown Adverse Verified 09/28/18 23:45 results with other prescribed medications Home Medications Home Medications Medication Instructions Recorded Confirmed Type albuterol sulfate [Ventolin HFA] 1 - 2 puff INHALATION Q4 PRN 06/07/18 09/28/18 History dextroamphetamine-amphetamine 30 mg PO QAM 06/07/18 09/28/18 History [Adderall XR] diclofenac sodium 2 g TOPICAL DIRECTED PRN 06/07/18 09/28/18 History lamotrigine [Lamictal] 150 mg PO HS 06/07/18 09/28/18 History promethazine 25 mg PO Q6H PRN 06/07/18 09/28/18 History risperidone 0.5 mg PO BID 06/07/18 09/28/18 History sumatriptan succinate [Imitrex] 100 mg PO DIRECTED PRN 06/07/18 09/28/18 History trazodone 75 mg PO HS PRN 06/07/18 09/28/18 History valacyclovir [Valtrex] 1,000 mg PO DIRECTED PRN 06/07/18 09/28/18 History [employer] Powder 1 packet PO DAILY 06/08/18 09/28/18 History calcium carbonate-vitamin D3 1 cap PO DAILY 06/08/18 09/28/18 History [Calcium 600 + D(3)] fish,bora,flax oils-om3,6,[id number] 1 cap PO DAILY 06/08/18 09/28/18 History [[place] 3-6-9] protein supplement 1 packet PO DAILY 06/08/18 09/28/18 History oxycodone-acetaminophen [Percocet] 1 tab PO Q4H PRN #18 tab 06/10/18 09/28/18 Rx apixaban [Eliquis] 2.5 mg PO BID 09/28/18 09/28/18 History diazepam [Valium] 5 mg PO TID PRN 09/29/18 09/29/18 History escitalopram oxalate [Lexapro] 20 mg PO DAILY 09/29/18 09/29/18 History magnesium 250 mg PO DAILY 09/29/18 09/29/18 History prednisone 30 mg PO DAILY 09/29/18 09/29/18 History Patient History Medical History History of pulmonary embolism Last episode in 2008. On eliquis; last dose on Friday Factor V Leiden Bipolar disorder Asthma Only uses inhaler during illness. Last use was over few months ago. H/o hospitalization as a child TIA (transient ischemic attack) Weakness on right side. No residual weakness. Surgical History Status post rotator cuff repair H/O cystoscopy 2012-mac 3 gr I view, #7.0 ETT History of hysterectomy Family History Other Family history non-contributory Social History marital status: Current Living Situation: Family Feels Safe at Home: Yes Safety Concerns: Feels Safe At This Time Smoking Status: Never smoker Hx Alcohol Use: Yes Alcohol type: beer and wine Alcohol Intake Frequency: holidays/special occasions only Hx Substance Use: Yes substance use type: painkillers Beliefs That Will Affect Care: None Communication Ability: Effective Physical Exam 2 Vital Signs (Past 24 Hours): Last Vital Signs Temp 37.3 C 09/30/18 14:52 Pulse 85 09/30/18 14:52 Resp 17 09/30/18 14:52 BP 106/68 09/30/18 14:52 Pulse Ox 92 09/30/18 14:52 Physical Exam: On exam her lumbar spine has no evidence of ecchymosis or erythema. It is essentially nontender to palpation. She is able to sit up in bed and stand without difficulty. She has good strength testing bilateral extremities.
[2018-09-30] MEDS ORDERED: DiphenhydrAMINE HCL 50 MG/ML VIAL IV PRN (15:36)
--- NOTE | 2018-09-30 15:37 | Hospitalist Progress Note ---
Date of Service September 30, 2018 Assessment & Plan (1) Fall: (1) Fall: Patient reports of tripping on the carpet on stairways, Losing balance and falling down the stairs CT of lumbar spine shows: 1. Status post T10-S1 posterior compression decompression and bilateral posterior fusion and L4-L5 and L5-S1 anterior fusions Hardware intact 2. Acute appearing nondisplaced fractures of the left transverse process of L3 , L4 and L5 and an acute appearing minimally displaced fracture of the superior endplate of S1 -Patient had lumbar spinal decompression surgery done on 09/16/2018 for idiopathic scoliosis of thoracolumbar region at [facility] Seen by orthopedic spine surgery here-he reports that these fractures will heal nicely on their own and that her spine is stabilized. No need for back brace at this time Conservative management, with pain control, bowel regimen (2) Intractable back pain: History of adolescent idiopathic scoliosis of the thoracolumbar region Status post arthrodesis of anterior lumbar spine on 09/16/[address] Robles at [facility] Patient had prolonged postop recovery and remained in the hospital for almost 2 weeks, discharged home on 09/24/2018 on a prednisone taper Patient reports was able to walk, do her ADLs, without any discomfort, till she had the accident/ falling down the stairs CT of lumbar spine as outlined above -Decreased Dilaudid 1.5 mg per dose, discontinued Benadryl along with Dilaudid but she asked for it for sleep at night -Continue Valium as needed for muscle spasm -Discontinue cyclobenzaprine in an effort to reduce polypharmacy -Continue acetaminophen as needed for pain as well -Avoid NSAIDs due to being on anticoagulation with Eliquis (3) History of pulmonary embolism: Primary hypercoagulable state with factor V Leiden Patient is continued with Eliquis (4) Factor V Leiden: History of pulmonary embolism and infarction Continue Eliquis (5) Leukocytosis, unspecified: White count elevated: Patient is on prednisone post lumbar surgery Taper dose to 20 mg daily for tomorrow No evidence of infection noted No fever or chills Follow CBC (6) Bipolar disorder: Continue Lamictal She is also on Adderall XR-does not need while she is in the hospital Continue Lexapro 20 mill grams daily (7) Status post lumbar spine surgery for decompression of spinal cord: Had spinal decompression surgery done on 09/16/2018 at [facility]-by Dr. Lopez Postop follow-up scheduled with Dr. Lopez on 10/13/2018 at 9:45 AM at orthopedics [facility] clinic CODE STATUS: Full code DVT prophylaxis: Patient is on Eliquis Disposition-hopeful to get her out of the hospital and possibly to rehab in the next 1-2 days once pain is controlled (2) Leukocytosis, unspecified: (3) Status post lumbar spine surgery for decompression of spinal cord: (4) Intractable back pain: (5) History of pulmonary embolism: (6) Factor V Leiden: (7) Bipolar disorder: Subjective Patient reports having a lot of pain in her lower and mid back. She reports she thought Benadryl was a muscle relaxer and that is why she is requesting it every 3 hours. She is also requesting that her Dilaudid be "increased to 1.5 mg " despite the fact that she was previously getting 2 mg IV at a time. She tells me that she has a high tolerance for narcotic drugs. She has been on a prednisone taper as she had a 2-week long hospital course approximately after her back surgery at [facility] in [place] and just got released 3 days prior to falling and breaking her transverse processes for this admission. RN reports she has been out of bed and walking Patient denies bowel or bladder issues Review of Systems All systems reviewed & are unremarkable except as noted in HPI & below (No chest pain or shortness of breath, no abdominal pain) Physical Exam 2 Vital Signs (Past 24 Hours): Last Vital Signs Temp 37.3 C 09/30/18 14:52 Pulse 85 09/30/18 14:52 Resp 17 09/30/18 14:52 BP 106/68 09/30/18 14:52 Pulse Ox 92 09/30/18 14:52 Constitutional: WD/WN, vitals as above Eyes: PERRL, conjunctivae normal, anicteric sclerae ENMT: external ear and nose normal, oropharynx normal Neck: trachea midline, no thyromegaly Respiratory: normal respiratory effort, lungs clear to auscultation Cardiovascular: RRR, no murmur, no edema Gastrointestinal (Abdomen): normal bowel sounds, soft, nontender, no hepatosplenomegaly Musculoskeletal: Extremities: extremities normal to inspection; no cyanosis and no clubbing Skin: no rashes, warm and dry Neurologic: moves all extremities and awake; no focal motor deficits Psychiatric: A+Ox3, euthymic affect Results & Data Laboratory Results No laboratory values _ (1) Bipolar disorder Active/Remission status: remission status unspecified Current bipolar episode type: Current episode severity: Most recent bipolar episode type: Psychotic features: Qualified Code(s): F31.9 - Bipolar disorder, unspecified (2) Leukocytosis, unspecified Leukocytosis type: unspecified Qualified Code(s): D72.829 - Elevated white blood cell count, unspecified (3) Fall Encounter type: initial encounter Qualified Code(s): W19.XXXA - Unspecified fall, initial encounter
[2018-09-30] MEDS: diazePAM 5 MG TABLET PO PRN (16:00)
[2018-09-30] MEDS: lamoTRIgine 100 MG TAB PO SCH (20:09)
[2018-10-01] MEDS: HYDROmorphone INJ 2 MG/ML SYR/VIAL IV PRN ×2 (05:07→09:23)
[2018-10-01] MEDS: diazePAM 5 MG TABLET PO PRN (05:07)
[2018-10-01] MEDS: risperiDONE 0.5 MG TABLET PO SCH ×2 (07:36→20:20)
[2018-10-01] MEDS: CALCIUM 600MG + VIT D 400 IU TAB PO SCH (07:36)
[2018-10-01] MEDS: predniSONE 10 MG TABLET PO SCH (07:36)
[2018-10-01] MEDS: ESCITALOPRAM OXALATE 20 MG TAB PO SCH (07:36)
[2018-10-01] MEDS: APIXABAN 2.5 MG TAB PO SCH ×2 (07:37→20:19)
[2018-10-01] MEDS: MAGNESIUM OXIDE 400 MG TAB PO SCH (07:37)
[2018-10-01] MEDS: POLYETHYLENE (MIRALAX) 17 GM PACK PO SCH ×2 (07:37→12:56)
[2018-10-01 08:32] LABS: Hematocrit (blood only) 36.1 % (37-47); Hemoglobin 11.3 g/dL (12.0-16.0); Mean Corpuscular Hgb Conc 31.3 g/dL (32-36); Mean Platelet Volume 8.5 fL (7.4-10.4); Platelet Count 687 K/uL (130-400); RDW Coefficient of Variation 15.4 % (11.5-14.5); RDW Standard Deviation 51.3 fL (36.4-46.3); Red Blood Count 3.88 M/uL (4.2-5.4); White Blood Count 24.91 K/uL (4.8-10.8)
[2018-10-01 09:38] LABS: Basophils # (auto) 0.03 K/uL (0-0.2); Basophils % (auto) 0.1 %; Eosinophils % (auto) 1.2 %; Immature Granulocytes # (auto) 0.29 K/uL (0.00-0.02); Immature Granulocytes % (auto) 1.2 %; Lymphocytes # (auto) 2.83 K/uL (1.2-3.4); Lymphocytes % (auto) 11.4 %; Monocytes # (auto) 1.45 K/uL (0.11-0.59); Monocytes % (auto) 5.8 %; Neutrophils # (auto) 20.01 K/uL (1.4-6.5); Neutrophils % (auto) 80.3 %; Toxic Vacuolation 1+
--- NOTE | 2018-10-01 13:16 | Hospitalist Progress Note ---
Date of Service October 01, 2018 Assessment & Plan (1) Fall: (1) Fall: Patient reports of tripping on the carpet on stairways, Losing balance and falling down the stairs CT of lumbar spine shows: 1. Status post T10-S1 posterior compression decompression and bilateral posterior fusion and L4-L5 and L5-S1 anterior fusions Hardware intact 2. Acute appearing nondisplaced fractures of the left transverse process of L3 , L4 and L5 and an acute appearing minimally displaced fracture of the superior endplate of S1 -Patient had lumbar spinal decompression surgery done on 09/16/2018 for idiopathic scoliosis of thoracolumbar region at [facility] Seen by orthopedic spine surgery here-he reports that these fractures will heal nicely on their own and that her spine is stabilized. No need for back brace at this time Conservative management, with pain control, bowel regimen (2) Intractable back pain: History of adolescent idiopathic scoliosis of the thoracolumbar region Status post arthrodesis of anterior lumbar spine on 09/16/[address] Robles at [facility] Patient had prolonged postop recovery and remained in the hospital for almost 2 weeks, discharged home on 09/24/2018 on a prednisone taper Patient reports was able to walk, do her ADLs, without any discomfort, till she had the accident/ falling down the stairs CT of lumbar spine as outlined above With continued pain today, but need to get her on a regimen to go home with. Is ambulating without any assistance -restart home Oxycontin 20mg bid and oxycodone IR 10mg po q4h prn for breakthrough -Decrease Dilaudid to 1 mg IV and decrease frequency to q6h for severe breakthrough pain (advised RN to use po oxycodone first) -Continue Valium as needed for muscle spasm-I will not increase it to 10mg today as per pt's request as we are starting her back on her Oxycontin -Continue acetaminophen as needed for pain as well -Avoid NSAIDs due to being on anticoagulation with Eliquis (3) History of pulmonary embolism: Primary hypercoagulable state with factor V Leiden Patient is continued with Eliquis (4) Factor V Leiden: History of pulmonary embolism and infarction Continue Eliquis (5) Leukocytosis, unspecified: White count elevated: Patient is on prednisone post lumbar surgery -continue 20 mg daily for 1 more day, then down to 10mg daily x 2 days then stop No evidence of infection noted No fever or chills Follow CBC Thrombocytopenia--> platelets in the 700s on admission, now trending downward into the 600s--> likely stress reaction -follow CBC (6) Bipolar disorder: Continue Lamictal She is also on Adderall XR-does not need while she is in the hospital Continue Lexapro 20 mg daily (7) Status post lumbar spine surgery for decompression of spinal cord: Had spinal decompression surgery done on 09/16/2018 at [facility]-by Dr. Lopez Postop follow-up scheduled with Dr. Lopez on 10/13/2018 at 9:45 AM at orthopedics [facility] CODE STATUS: Full code DVT prophylaxis: Patient is on Eliquis Disposition-hopeful to get her out of the hospital and possibly to rehab in the next 1-2 days once pain is better controlled (2) Leukocytosis, unspecified: (3) Status post lumbar spine surgery for decompression of spinal cord: (4) Intractable back pain: (5) History of pulmonary embolism: (6) Factor V Leiden: (7) Bipolar disorder: Subjective Pt reports continued severe lower back pain. When I walked in the room, she was walking unassisted and did not see me. After she turned and saw me, she began whining about how much pain she was having. SHe has been walking out to the nurse's station to ask for pain meds and then walks back to the room. She is moving her bowels and reports the stool is "pasty." Is asking to increase the dose of her valium. When asked about her home regimen of po pain meds, she told me she was on po dilaudid, po Oxycontin, and po oxycodone. When I questioned why she would have two different immediate release breakthrough pain pills, she said "I have it all written out on a schedule of how I am supposed to take it." I then pulled up the [place] PDMP website and confirmed that she does take Oxycontin 20mg po bid and Oxycodone IR 10mg q4h prn, but there was NO po dilaudid prescribed in the last year. There was po valium 5mg tabs tid as well-all 3 of those drugs were just prescribed one week ago. Review of Systems All systems reviewed & are unremarkable except as noted in HPI & below Physical Exam 2 Vital Signs (Past 24 Hours): Last Vital Signs Temp 37.2 C 10/01/18 11:08 Pulse 92 H 10/01/18 11:08 Resp 20 10/01/18 11:08 BP 109/66 10/01/18 11:08 Pulse Ox 93 10/01/18 11:08 Constitutional: WD/WN, vitals as above Eyes: PERRL, conjunctivae normal, anicteric sclerae ENMT: external ear and nose normal, oropharynx normal Neck: trachea midline, no thyromegaly Respiratory: normal respiratory effort, lungs clear to auscultation Cardiovascular: RRR, no murmur, no edema Gastrointestinal (Abdomen): normal bowel sounds, soft, nontender, no hepatosplenomegaly Musculoskeletal: Spine: + thoracic spinal tenderness (with dressing in place with scant amount of brown dried blood on it) Extremities: extremities normal to inspection; no cyanosis and no clubbing Skin: no rashes, warm and dry Neurologic: moves all extremities and awake; no focal motor deficits Psychiatric: Orientation: alert and cooperative Affect: + flat affect Results & Data Laboratory Results 10/01/18 Range/Units 08:07 WBC 24.91 H (4.8-10.8) K/uL RBC 3.88 L (4.2-5.4) M/uL Hgb 11.3 L (12.0-16.0) g/dL Hct 36.1 L (37-47) % MCV 93.0 (80-100) fL MCH 29.1 (25-34) pg MCHC 31.3 L (32-36) g/dL RDW Std Deviation 51.3 H (36.4-46.3) fL RDW Coeff of [place] 15.4 H (11.5-14.5) % Plt Count 687 H (130-400) K/uL MPV 8.5 (7.4-10.4) fL Immature Gran % (Auto) 1.2 % Neut % (Auto) 80.3 % Lymph % (Auto) 11.4 % [place] % (Auto) 5.8 % Eos % (Auto) 1.2 % Baso % (Auto) 0.1 % Immature Gran # (Auto) 0.29 H (0.00-0.02) K/uL Neut # (Auto) 20.01 H (1.4-6.5) K/uL Lymph # (Auto) 2.83 (1.2-3.4) K/uL [place] # (Auto) 1.45 H (0.11-0.59) K/uL Eos # (Auto) 0.30 (0-0.5) K/uL Baso # (Auto) 0.03 (0-0.2) K/uL Toxic Vacuolation 1+ _ (1) Fall Encounter type: initial encounter Qualified Code(s): W19.XXXA - Unspecified fall, initial encounter (2) Leukocytosis, unspecified Leukocytosis type: unspecified Qualified Code(s): D72.829 - Elevated white blood cell count, unspecified (3) Bipolar disorder Active/Remission status: remission status unspecified Current bipolar episode type: Current episode severity: Psychotic features: Most recent bipolar episode type: Qualified Code(s): F31.9 - Bipolar disorder, unspecified
[2018-10-01] MEDS: OXYCODONE HCL IR 5 MG TAB (IMMEDIATE RELEASE) PO PRN ×2 (13:23→20:23)
[2018-10-01] MEDS: OXYCODONE HCL 20 MG TABCR (OXYCONTIN) PO SCH ×2 (13:23→20:23)
[2018-10-01] MEDS ORDERED: Nursing to Pharmacy Communication ONE (13:27)
[2018-10-01] MEDS ORDERED: HYDROmorphone INJ 1 MG/ML SYRINGE IV ONE (13:45)
[2018-10-01] MEDS: HYDROmorphone INJ 1 MG/ML SYRINGE IV PRN (17:26)
[2018-10-01] MEDS: lamoTRIgine 100 MG TAB PO SCH (20:19)
[2018-10-02] MEDS: HYDROmorphone INJ 1 MG/ML SYRINGE IV PRN (00:28)
[2018-10-02 07:49] LABS: Basophils # (auto) 0.03 K/uL (0-0.2); Basophils % (auto) 0.2 %; Eosinophils # (auto) 0.64 K/uL (0-0.5); Eosinophils % (auto) 3.3 %; Hematocrit (blood only) 36.1 % (37-47); Hemoglobin 11.7 g/dL (12.0-16.0); Immature Granulocytes # (auto) 0.19 K/uL (0.00-0.02); Lymphocytes # (auto) 3.81 K/uL (1.2-3.4); Lymphocytes % (auto) 19.7 %; Mean Corpuscular Hgb Conc 32.4 g/dL (32-36); Mean Corpuscular Volume 92.1 fL (80-100); Mean Platelet Volume 8.5 fL (7.4-10.4); Monocytes # (auto) 1.44 K/uL (0.11-0.59); Monocytes % (auto) 7.4 %; Neutrophils # (auto) 13.25 K/uL (1.4-6.5); Neutrophils % (auto) 68.4 %; Platelet Count 630 K/uL (130-400); RDW Coefficient of Variation 15.6 % (11.5-14.5); RDW Standard Deviation 52.2 fL (36.4-46.3); Red Blood Count 3.92 M/uL (4.2-5.4); White Blood Count 19.36 K/uL (4.8-10.8)
[2018-10-02] MEDS: OXYCODONE HCL 20 MG TABCR (OXYCONTIN) PO SCH ×2 (07:59→21:01)
[2018-10-02] MEDS: MAGNESIUM OXIDE 400 MG TAB PO SCH (08:00)
[2018-10-02] MEDS: diazePAM 5 MG TABLET PO PRN ×3 (08:00→23:48)
[2018-10-02] MEDS: risperiDONE 0.5 MG TABLET PO SCH ×2 (08:00→21:01)
[2018-10-02] MEDS: CALCIUM 600MG + VIT D 400 IU TAB PO SCH (08:00)
[2018-10-02] MEDS: APIXABAN 2.5 MG TAB PO SCH ×2 (08:00→21:01)
[2018-10-02] MEDS: ESCITALOPRAM OXALATE 20 MG TAB PO SCH (08:00)
[2018-10-02] MEDS: OXYCODONE HCL IR 5 MG TAB (IMMEDIATE RELEASE) PO PRN ×4 (08:00→23:48)
[2018-10-02] MEDS: predniSONE 10 MG TABLET PO SCH (08:00)
[2018-10-02] MEDS: POLYETHYLENE (MIRALAX) 17 GM PACK PO SCH (08:01)
[2018-10-02] MEDS: ACETAMINOPHEN 325 MG TAB PO PRN (15:27)
--- NOTE | 2018-10-02 16:33 | Hospitalist Progress Note ---
Date of Service October 02, 2018 Assessment & Plan (1) Fall: (1) Fall: Patient reports of tripping on the carpet on stairways, Losing balance and falling down the stairs CT of lumbar spine shows: 1. Status post T10-S1 posterior compression decompression and bilateral posterior fusion and L4-L5 and L5-S1 anterior fusions Hardware intact 2. Acute appearing nondisplaced fractures of the left transverse process of L3 , L4 and L5 and an acute appearing minimally displaced fracture of the superior endplate of S1 -Patient had lumbar spinal decompression surgery done on 09/16/2018 for idiopathic scoliosis of thoracolumbar region at [facility] Seen by orthopedic spine surgery here-he reports that these fractures will heal nicely on their own and that her spine is stabilized. No need for back brace at this time In review with her spine surgeon, Dr. Lopez, on the phone, he reports that these are not acute fractures from the fall and in fact he created these with decortication during his surgery. The patient and her are both aware of this. Conservative management, with pain control, bowel regimen (2) Intractable back pain: History of adolescent idiopathic scoliosis of the thoracolumbar region Status post arthrodesis of anterior lumbar spine on 09/16/[address] Lopez at [facility] Patient had prolonged postop recovery and remained in the hospital for almost 2 weeks, discharged home on 09/24/2018 on a prednisone taper. Her surgeon tells me that she was on a Dilaudid [employer] for an extended period of time mostly to give her control over her pain control given her suspected personality disorder Suspect pain is muscle spasm due to fall but hardware is all intact and fractures are not from the fall as above CT of lumbar spine as outlined above With continued pain today, but discontinued IV Dilaudid as I feel she is using it unnecessarily and refusing all the oral breakthrough pain meds-explained that this is what her surgeon from [facility] wanted for her plan and she is accepting of this but wants to stay again overnight. She is also requesting Phenergan and later IV Benadryl for her sensation of throat swelling. It is fairly clear that she gets satisfaction from any IV pain medicine that has sedating effects Is ambulating without any assistance -Continue home Oxycontin 20mg bid and oxycodone IR 10mg po q4h prn for breakthrough Discontinue IV Dilaudid -Continue Valium as needed for muscle spasm -Continue acetaminophen as needed for pain as well -Avoid NSAIDs due to being on anticoagulation with Eliquis (3) History of pulmonary embolism: Primary hypercoagulable state with factor V Leiden Patient is continued with Eliquis (4) Factor V Leiden: History of pulmonary embolism and infarction Continue Eliquis (5) Leukocytosis, unspecified: White count elevated but trending downward: Patient is on prednisone post lumbar surgery -Taper down to 10mg daily x 2 days then stop No evidence of infection noted No fever or chills Follow CBC Thrombocytopenia--> platelets in the 700s on admission, now continuing to trending downward into the 600s--> likely stress reaction -follow CBC as an outpatient (6) Bipolar disorder: Continue Lamictal She is also on Adderall XR-does not need while she is in the hospital Continue Lexapro 20 mg daily (7) Status post lumbar spine surgery for decompression of spinal cord: Had spinal decompression surgery done on 09/16/2018 at [facility]-by Dr. Lopez Postop follow-up scheduled with Dr. Lopez on 10/13/2018 at 9:45 AM at orthopedics [facility] clinic CODE STATUS: Full code DVT prophylaxis: Patient is on Eliquis Disposition-patient requested to stay overnight to "get more attentive care" and then is agreeable to discharge in the morning (2) Leukocytosis, unspecified: (3) Status post lumbar spine surgery for decompression of spinal cord: (4) Intractable back pain: (5) History of pulmonary embolism: (6) Factor V Leiden: (7) Bipolar disorder: Subjective Pt upset about the discontinuation of the IV dilaudid today even though we discussed this plan yesterday. She says her pain is still severe, but has been walking the halls. Feels stiff in the back. She apparently overnight refused the po oxycodone when it was available and instead waited until it was time to get the next dose of IV Dilaudid. I discussed with her about the plan to transition her to her home po pain meds from yesterday and she said she didn't recall that conversation. She then asked if I would be giving her Rxs for the opioids upon discharge and I reminded her that she just filled a 30 day supply of the Oxycontin, the oxycodone, and the valium one week ago, and that she would have more than enough until she has her next appointment with Dr. Lopez on 10/10/18. She then asked if she could stay one more night here as she gets "more attentive care here" than at home with her . Later in the day, I was called and informed by the nurse that the patient took a bite of a muffin and then complained of throat swelling and itching in her ears and neck. She was requesting IV Benadryl and I gave it to her along with extra prednisone and Zantac. When I came to see her, she had a completely patent airway and no evidence of hives, angioedema, or respiratory distress. Review of Systems All systems reviewed & are unremarkable except as noted in HPI & below Physical Exam 2 Vital Signs (Past 24 Hours): Last Vital Signs Temp 36.7 C 10/02/18 08:28 Pulse 66 10/02/18 08:28 Resp 18 10/02/18 08:28 BP 112/73 10/02/18 08:28 Pulse Ox 98 10/02/18 08:28 Constitutional: WD/WN, vitals as above Eyes: PERRL, conjunctivae normal, anicteric sclerae ENMT: external ear and nose normal, oropharynx normal Neck: trachea midline, no thyromegaly Respiratory: normal respiratory effort, lungs clear to auscultation Cardiovascular: RRR, no murmur, no edema Gastrointestinal (Abdomen): normal bowel sounds, soft, nontender, no hepatosplenomegaly Musculoskeletal: Spine: + thoracic spinal tenderness (with dressing in place ) Extremities: extremities normal to inspection; no cyanosis and no clubbing Skin: no rashes, warm and dry Neurologic: moves all extremities and awake; no focal motor deficits Psychiatric: Orientation: alert and oriented x 3 Affect: + labile affect Results & Data Laboratory Results 10/02/18 Range/Units 07:32 WBC 19.36 H (4.8-10.8) K/uL RBC 3.92 L (4.2-5.4) M/uL Hgb 11.7 L (12.0-16.0) g/dL Hct 36.1 L (37-47) % MCV 92.1 (80-100) fL MCH 29.8 (25-34) pg MCHC 32.4 (32-36) g/dL RDW Std Deviation 52.2 H (36.4-46.3) fL RDW Coeff of Augustina 15.6 H (11.5-14.5) % Plt Count 630 H (130-400) K/uL MPV 8.5 (7.4-10.4) fL Immature Gran % (Auto) 1.0 % Neut % (Auto) 68.4 % Lymph % (Auto) 19.7 % [place] % (Auto) 7.4 % Eos % (Auto) 3.3 % Baso % (Auto) 0.2 % Immature Gran # (Auto) 0.19 H (0.00-0.02) K/uL Neut # (Auto) 13.25 H (1.4-6.5) K/uL Lymph # (Auto) 3.81 H (1.2-3.4) K/uL [place] # (Auto) 1.44 H (0.11-0.59) K/uL Eos # (Auto) 0.64 H (0-0.5) K/uL Baso # (Auto) 0.03 (0-0.2) K/uL _ (1) Bipolar disorder Active/Remission status: remission status unspecified Current bipolar episode type: Current episode severity: Most recent bipolar episode type: Psychotic features: Qualified Code(s): F31.9 - Bipolar disorder, unspecified (2) Leukocytosis, unspecified Leukocytosis type: unspecified Qualified Code(s): D72.829 - Elevated white blood cell count, unspecified (3) Fall Encounter type: initial encounter Qualified Code(s): W19.XXXA - Unspecified fall, initial encounter
[2018-10-02] MEDS ORDERED: PROMETHAZINE HCL 25 MG TAB PO PRN (16:55)
[2018-10-02] MEDS ORDERED: PROMETHAZINE HCL 25 MG TAB ONE (17:02)
[2018-10-02] MEDS ORDERED: DiphenhydrAMINE HCL 50 MG/ML VIAL IV STA (18:39)
[2018-10-02] MEDS ORDERED: predniSONE 20 MG TAB PO ONE (18:41)
[2018-10-02] MEDS: lamoTRIgine 100 MG TAB PO SCH (21:02)
[2018-10-03] MEDS: ACETAMINOPHEN 325 MG TAB PO PRN ×2 (01:42→16:03)
[2018-10-03] MEDS: OXYCODONE HCL IR 5 MG TAB (IMMEDIATE RELEASE) PO PRN ×2 (07:54→14:04)
[2018-10-03] MEDS: diazePAM 5 MG TABLET PO PRN (07:55)
[2018-10-03] MEDS ORDERED: predniSONE 10 MG TABLET PO SCH (09:00)
[2018-10-03] MEDS: POLYETHYLENE (MIRALAX) 17 GM PACK PO SCH (09:31)
[2018-10-03] MEDS: OXYCODONE HCL 20 MG TABCR (OXYCONTIN) PO SCH (09:32)
--- NOTE | 2018-10-03 09:49 | Discharge Summary ---
Date of Service October 03, 2018 Admission HPI Per Admitting Provider This is a 48-year-old female with past medical history significant for asthma, history pulmonary embolism, history of factor V Leiden deficiency, obsessive compulsive disorder, history of adolescent idiopathic scoliosis of thoracolumbar region, status post surgery on 09/16/2018 at [place] presents because of fall in the steps on the back and having severe pain requesting for pain medications. Otherwise, she was doing okay after the surgery. After surgery, she was started on prednisone taper. There is some mild headache, no blurred vision, no runny nose, no sore throat, no difficulty swallowing, sleeping okay. Appetite is okay. No recent weight gain or weight loss. No chest pain, no shortness of breath, no cough. 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 She has some left lower quadrant abdominal pain that has been there prior to surgery but is getting better. Recently, had a thoracolumbar spinal surgery for scoliosis and there is some incisions also on the left lower quadrant of abdomen. Incision site looks okay of the back. Denies any constipation, no diarrhea, no blood in the stool or black stools. Normal bladder movements. Resting comfortably and hemodynamically stable. Principal Diagnosis Intractable back pain Discharge Exam Constitutional WD/WN, vitals as above Eyes PERRL, conjunctivae normal, anicteric sclerae ENMT external ear and nose normal, oropharynx normal (airway widely patent, no lip or tongue swelling) Nose: no external nose abnormality Mouth: no lip abnormality, no oropharynx abnormality, no oral mucosal abnormality, no tongue abnormality, no muffled voice and no mouth trauma Throat: no posterior oropharynx abnormality Neck trachea midline, no thyromegaly normal visual inspection and trachea midline; no neck crepitus, no anterior neck swelling, no submandibular swelling, neck nontender and no nuchal rigidity Respiratory normal respiratory effort, lungs clear to auscultation Cardiovascular RRR, no murmur, no edema Gastrointestinal (Abdomen) normal bowel sounds, soft, nontender, no hepatosplenomegaly Musculoskeletal Spine: + thoracic spinal tenderness (with dressing in place ) Extremities: extremities normal to inspection; no cyanosis and no clubbing Skin no rashes, warm and dry Neurologic moves all extremities and awake; no focal motor deficits Psychiatric Orientation: alert and oriented x 3 Affect: + labile affect Discharge Data Allergies Allergy/AdvReac Type Severity Reaction Status Date / Time dexamethasone [From Decadron] AdvReac Intermediate WHOLE BODY Verified 09/28/18 23:45 FELT LIKE BURNING INSIDE. tramadol AdvReac Unknown Adverse Verified 09/28/18 23:45 results with other prescribed medications Consultations Orthopedic Surgery Ordered Studies 09/28/18 22:16 CT lumbar spine wo con Stat CT thoracic spine wo con Stat Hospital Course (1) Fall: Presented after reports of tripping on the carpet on stairways, Losing balance and falling down the stairs CT of lumbar spine shows: 1. Status post T10-S1 posterior compression decompression and bilateral posterior fusion and L4-L5 and L5-S1 anterior fusions Hardware intact 2. Acute appearing nondisplaced fractures of the left transverse process of L3 , L4 and L5 and an acute appearing minimally displaced fracture of the superior endplate of S1 -Patient had lumbar spinal decompression surgery done on 09/16/2018 for idiopathic scoliosis of thoracolumbar region at [facility] Seen by orthopedic spine surgery here-he reports that these fractures will heal nicely on their own and that her spine is stabilized. No need for back brace at this time In review with her spine surgeon, Dr. Lopez, on the phone, he reports that these are not acute fractures from the fall and in fact he created these with decortication during his surgery. The patient and her are both aware of this. Conservative management, with pain control, bowel regimen (2) Intractable back pain: History of adolescent idiopathic scoliosis of the thoracolumbar region Status post arthrodesis of anterior lumbar spine on 09/16/[address] Lopez at [facility] Patient had prolonged postop recovery and remained in the hospital for almost 2 weeks, discharged home on 09/24/2018 on a prednisone taper. 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 She is ambulating without assistance and has no focal neuro deficits on exam Eventually I was able to discontinue her IV dilaudid and continue her on her home regimen of: Oxycontin 20mg bid Oxycodone 10mg po q4h prn pain Valium 5mg po tid prn muscle spasm -Continue acetaminophen as needed for pain as well -Avoid NSAIDs due to being on anticoagulation with Eliquis -she also continued to ask for only IV Benadryl-first as she insisted it was a muscle relaxer; second then asked for it as a sleep aid but wanted it during the daytime-I declined this and only had it ordered at nighttime; and third, she complained of throat swelling and itching around the neck and ears after eating a muffin one day, and then recurrently after eating a cookie the next day --> asked for IV Benadryl only and was upset with getting po benadryl. -Advised that her anxiety disorder may be exacerbating and causing somatization and advised that she is NOT having a true allergic reaction (no evidence whatsoever on physical exam), and that she does not really need medication to improve these symptoms. Advised close follow up with her Therapist and Psychiatrist to better manage her symptoms and she is agreeable (3) Leukocytosis, unspecified: WBC count elevated but trending downward: Patient is on prednisone post lumbar surgery -Taper down to 10mg daily today and tomorrow, then stop No evidence of infection noted No fever or chills Follow CBC as an outpt (4) Status post lumbar spine surgery for decompression of spinal cord: on 09/16/[address] Pelon Lopez at [facility] (5) History of pulmonary embolism: Primary hypercoagulable state with factor V Leiden -continue Eliquis dose at 2.5mg po bid (6) Factor V Leiden: with h/o PE, on Eliquis (7) Bipolar disorder: Anxiety exacerbating her medical conditions -advised close f/u with Therapist and Psych after discharge -Continue Lamictal She is also on Adderall XR-does not need while she is in the hospital -Continue Lexapro 20 mg daily -continue risperdal, trazadone (8) Itching: In throat and ears. Airway widely patent, no rash, no swelling, no evidence of anaphylaxis Suspect somatization -is on prednisone and benadryl prn -observe (9) Thrombocytosis: --> platelets in the 700s on admission, now continuing to trending downward into the 600s--> likely stress reaction -follow CBC as an outpatient (10) DVT prophylaxis: [place] provided Dispo- Postop follow-up scheduled with Dr. Lopez on 10/13/2018 at 9:45 AM at orthopedics [facility] Stable for discharge to home Total Time Total Time Spent Total Time Spent (In Minutes): >30 min Total Time Includes: Examination of the Patient, Discharge Planning and Medication Reconciliation Discharge Plan Discharge Items Patient Disposition: Home - Self-Care Reason For Visit: SEVERE BACK PAIN Discharge Diagnosis: Back pain Condition: Good Discharge Goals: Decrease discomfort, Diagnostic testing, Improve disease control and Therapeutic intervention Activity: Resume your previous activity Lifting: None Bathing Comment: as per your Surgeon's instructions Exercise/Sports: Wait until after follow-up appointment Driving/Machine Use Comment: No driving while taking oxycodone Non-emergency contact: Primary Care Provider and Surgeon Call non-emergency contact if: you have any medication questions, your symptoms worsen and your pain is not controlled Follow-up/Referrals: Joanna Gage PA-C [Nurse Practitioner] - 10/07/18 9:30 am (follow up appointment at your primary care physician office with the physician reproductive healthcare assistant) Diet: Regular Addtl Provider Instructions: You were admitted for back pain after a fall. Your spine imaging shows the expected post-operative changes and NO NEW fractures as per your Spine SUrgeon' s review. Continue the pain medicine you already have at home as prescribed by your Spine Surgeon and keep your follow up appointment with him. It is important that you follow up closely with your therapist, Monika. A lot of your symptoms could be exacerbated by your anxiety; counseling can help with this tremendously. Please follow up with your PCP as scheduled for you. Prescriptions: New acetaminophen [Mapap (acetaminophen)] 325 mg Tablet 650 mg PO Q4H PRN (Reason: pain) Qty: 30 RF: 0 Continue lamotrigine [Lamictal] 150 mg Tablet 150 mg PO HS RF: 0 trazodone 50 mg Tablet 75 mg PO HS PRN (Reason: Sleep) RF: 0 valacyclovir [Valtrex] 1 gram Tablet 1,000 mg PO DIRECTED PRN (Reason: Outbreak) RF: 0 sumatriptan succinate [Imitrex] 100 mg Tablet 100 mg PO DIRECTED PRN (Reason: Migraine Headache) RF: 0 promethazine 25 mg Tablet 25 mg PO Q6H PRN (Reason: Nausea) RF: 0 albuterol sulfate [Ventolin HFA] 90 mcg/actuation Hfa Aerosol Inhaler 1 - 2 puff INHALATION Q4 PRN (Reason: Shortness Of Breath Or Wheezing) RF: 0 dextroamphetamine-amphetamine [Adderall XR] 30 mg Capsule,Extended Release 24hr 30 mg PO QAM RF: 0 risperidone 0.5 mg Tablet 0.5 mg PO BID RF: 0 diclofenac sodium 1 % Gel 2 g TOPICAL DIRECTED PRN (Reason: Pain) RF: 0 apixaban [Eliquis] 2.5 mg Tablet 2.5 mg PO BID RF: 0 diazepam [Valium] 5 mg Tablet 5 mg PO TID PRN (Reason: Muscle Spasticity) RF: 0 escitalopram oxalate [Lexapro] 20 mg Tablet 20 mg PO DAILY RF: 0 magnesium 250 mg 250 mg PO DAILY RF: 0 oxycodone [OxyContin] 20 mg Tablet,Oral Only,Ext.Rel.12 Hr 20 mg PO Q12H RF: 0 calcium carbonate-vitamin D3 [Calcium 600 + D(3)] 600 mg calcium- 200 unit Capsule 1 cap PO DAILY RF: 0 fish,bora,flax oils-om3,6,9no1 [[place] 3-6-9] 1,200 mg Capsule 1 cap PO DAILY RF: 0 protein supplement Packet 1 packet PO DAILY RF: 0 [employer] Powder powder 1 packet PO DAILY RF: 0 Stand-Alone Forms: [facility] Discharge Orders: Discharge Order (Routine); Ordered 10/03/18 Ordered By: Adenike Ambrose Admission Data Admit Date/Time: 10/01/18 13:19 Attending Provider: Adenike Ambrose Admit Provider: Anthony Beck Primary Care Provider: Alex Anders Other Providers: Anthony Beck ; Jim Lujan Service: Surgical Services Other Pending Studies at Discharge: No
[2018-10-03] MEDS: APIXABAN 2.5 MG TAB PO SCH (10:15)
[2018-10-03] MEDS: CALCIUM 600MG + VIT D 400 IU TAB PO SCH (10:15)
[2018-10-03] MEDS: ESCITALOPRAM OXALATE 20 MG TAB PO SCH (10:16)
[2018-10-03] MEDS: MAGNESIUM OXIDE 400 MG TAB PO SCH (10:16)
[2018-10-03] MEDS: risperiDONE 0.5 MG TABLET PO SCH (10:17)
== END 2018-10-03 17:32 | disposition home or self-care (01) | DRG 552 ==
LOC: ED 21:43 → 3N 21:43 → SUATTDRO 09-29 01:07 → 3N 09-29 01:55

== ENCOUNTER 2023-11-15 19:24 | Inpatient (IN) ==
--- OUTSIDE RECORDS SUMMARY | 2023-11-15 19:31 | External Medical Summary | Summary of Care ---
Author Name Unknown Organization [facility] Address [address] [place] [address] Phone [phone] Care Team Providers Care Linen Clerk Name Role Phone Alex Anders MD Primary Care Provider [phone] Reason for Visit * Reason Onset Date Comments Appointment 10/08/2023 Encounter Details Date Type Department Care Team (Late st Contact Info) Description 10/08/2023 [facility] [address] [place] [address] Laurel Lopez MD [address] [place] [address] Appointment Allergies Active Allergy Reactions Criticality Noted Date Comments Dust 03/18/2018 Sneezing, wheezing Molds & Smuts High 03/18/2018 Itchy, swollen throat Other Allergy (See Comments) 03/18/2018 Animal dander-- wheezing Pollen 03/18/2018 wheezing Tramadol Other (Please comment) 03/18/2018 Counteract with other medications documented as of this encounter (statuses as of 10/09/2023) Medications Medication Sig Dispensed Refills Start Date End Date Status DAILY MULTIVITAMIN PO TABS once daily 0 04/20/2009 Active LAMICTAL 150 MG PO TABS 0 Active amphetamine-dextroamph et ER (ADDERALL XR) 30 MG CP24 1 CAPSULE BY MOUTH EVERY MORNING 0 10/03/2016 Active Magnesium 250 MG Tablet Take 250 mg by mouth daily. 0 Active QUEtiapine (SEROQUEL) 100 MG Tablet TAKE 1 TABLET BY MOUTH EVERY DAY IN THE EVENING 0 10/13/2019 Active Apixaban 2.5 MG Oral Tablet (Eliquis) Take by mouth 2.5 mg 2 times a day . Patient takes 2.5mg tabs twice a day 0 Active Acetaminophen 325 MG Oral Tablet (Tylenol) Take by mouth 3 Tablets in the morning AND 3 Tablets at noon AND 3 Tablets in the evening AND 3 Tablets before bedtime. 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 0 12/23/2008 Overview: ICD-10 update of inactive term Anticoagulation management encounter 12/23/2008 Iatrogenic pulmonary embolism and infarction 03/2009 Primary hypercoagulable state 10/21/2003 family hx of hematologic disease 07/13/2003 OBSESSIVE-COMPULSIVE DIS documented as of this encounter (statuses as of 10/09/2023) Resolved Problems Problem Noted Date Diagnosed Date Resolved Date Painful orthopaedic hardware 02/08/2022 02/11/2022 Asthma, allergic 02/12/2010 documented as of this encounter (statuses as of 10/09/2023) Immunizations Name Administration Dates Next Due TDAP (age 10 and older)(Boostrix) 03/10/2021 documented as of this encounter Social History Tobacco Use Types Packs/Day Years Used Date Smoking Tobacco: Never Smokeless Tobacco: Never Alcohol Use Standard Drinks/Week Comments Yes 0 (1 standard drink = 0.6 oz pur e alcohol) occ. Sex and Gender Information Value Date Recorded Sex Assigned at Not on file Gender Identity Not on file Sexual Orientation Not on file Job Start Date Occupation Industry Not on file Not on file Not on file documented as of this encounter Functional Status Functional Status Response Date of Assess ment Are you deaf or do you have serious difficulty h earing? No 03/01/2022 Are you blind or do you have serious difficulty seeing, even when wearing glasses? No 03/01/2022 Do you have serious difficul ty walking or climbing stairs? (5 years old or older) No 03/01/2022 Do you have difficulty dress ing or bathing? (5 years old or older) No 03/01/2022 Because of a physical, menta l, or emotional condition, do you have difficulty doing errands alone such as visiting a doctor s office or shopping? (15 years old or older) No 03/01/20 Cognitive Status Response Date of Assessm ent Because of a physical, menta l, or emotional condition, do you have serious difficulty concentrating, remembering, or making decisions? (5 years old or older) No 03/01/2022 documented as of this encounter Miscellaneous Notes * Telephone Encounter - Luciana Ribeiro OSA - 10/09/2023 11:15 AM EST Left message to call back * Telephone Encounter - Clarissa Lopez OSA - 10/08/2023 1:05 PM EST Pt was unable to come see Dr. Lopez today for r/s. Is there another date/time we can offer? documented in this encounter Plan of Treatment Upcoming Encounters Date Type Department Care Team (Late st Contact Info) Description 10/16/2023 1:00 PM EST Office Visit Orthopaedics [facility] [address] [place] [address] Laurel Lopez MD [address] [place] [address] Scheduled Procedures Name Priority Associated Diagnoses Date/Ti me COLONOSCOPY FLEXIBLE PROXIMA L DIAGNOSTIC Recall Encounter for screening colonoscopy Health Maintenance Due Date Last Done Comments Pneumococcal Vaccine: Pediatrics (0 to 5 Years) and At-Risk Patients (6 to 64 Years) (1 of 2 - PCV) 1978 Depression Screening 1984 HIV Screening 1987 Hepatitis C Screening 1990 Hepatitis B (1 of 3 - 19+ 3-dose series) 1991 Mammogram 2012 Cologuard 2017 Fecal Occult Blood Test 2017 Sigmoidoscopy 2017 Zoster Vaccines (1 of 2) 2022 *SPIROMETRY ONCE FOR ASTHMA-ADULT 07/11/2022 COVID-19 Vaccine ( - season) 2023 Influenza Vaccine (FLU shot) (#1) 2023 Lipid Panel 08/27/2023 08/27/2018, 07/13/2003 Diabetes Screening 02/28/2025 02/28/2022, 0 02/28/2022, 02/09/2022, Additional history exists Colonoscopy 04/16/2028 04/16/2018, 04/16/2018 Colorectal Cancer Screening 04/16/2028 DTaP,Tdap,and Td Vaccines (2 - Td or Tdap) 03/10/2031 03/10/2021 Pap Smear Discontinued 08/19/2003, 09/2003, 07/21/2002 COLONOSCOPY EVERY 10 YEARS,AGES 18-50 Discontinued 04/16/2018, 04/16/2018 GARDASIL-HPV IMMUNIZATION SERIES Aged Out No longer eligible based on patient's age to complete this topic MENINGOCOCCAL (MENACTRA/MENVEO) Aged Out No longer eligible based on patient's age to complete this topic documented as of this encounter Medical Devices Implanted Type Area Risk Assessment Consultant Device Identifier Shelf Expiration Date Model / Serial / Lot Dbx 10cc [id number] - [id number] - [id number] Implanted:Qty : 1 on 09/16/2018 by Laurel Lopez MD at [facility] [place] [place] Tissue - Human N/A: Spine Lumbar MUSCULOSKELETAL TRANSPLANT FND 06/17/2020 [id number] / [id number] / LOT NA Description:Anterior Chips Cancellous 60cc - [id number] Implanted: by Laurel Lopez MD at [facility] [place] [place] (Quantity not on file) Tissue - Human MUSCULOSKELETAL TRANSPLANT FND 04/14/2020 [id number] / [id number] / LOT NA 4.5mm [employer]al[employer] [place] Double Suture Implanted:Qty : 2 on 08/19/2014 by Kervin Santos MD at [facility] [address] Tissue - Non Human Left: Shoulder [employer] *DNU* 01/17/2019 [id number] / / [id number] Footprint 5.5mm [place] Implanted:Qty : 1 on 08/19/2014 by Kervin Santos MD at [facility] [address] Tissue - Non Human Left: Shoulder [employer] ORTHO *DNU* 04/19/2019 [id number] / / [id number] Footprint Ultra Pk Suture [place] Implanted:Qty : 1 on 08/19/2014 by Kervin Santos MD at [facility] [address] Left: Shoulder [employer] ORTHO *DNU* 05/17/2018 [id number] / / [id number] Graft Infuse Bone Lg [id number] - [id number] Implanted:Qty : 1 on 09/16/2018 by Laurel Lopez MD at [facility] [place] [place] N/A: Spine Lumbar [employer] : NEURO CARE 05/17/2020 [id number] / / [id number] Description:Anterior [id number] 15 Degree Cage Implanted:Qty : 1 on 09/16/2018 by Laurel Lopez MD at [facility] [place] [place] N/A: Spine Lumbar [employer] L15 / / Description:Anterior 5.5 X 25 Screw Implanted:Qty : 6 on 09/16/2018 by Laurel Lopez MD at [facility] [place] [place] N/A: Spine Lumbar [employer] / / Description:Anterior 24 X 30 X 15 15 Degree Cage Implanted:Qty : 1 on 09/16/2018 by Laurel Lopez MD at [facility] [place] [place] N/A: Spine Lumbar [employer] L15 / / Description:Anterior documented as of this encounter Advance Directives Latest Code Status on File Code Status Date Activated Date Inactivated Comments Full Code 02/28/2022 5:09 PM 03/01/2022 6:35 PM This order reflects the patients wishes and were consensually agreed upon. Code Status History Code Status Date Activated Date Inactivated Comments Full Code 02/28/2022 5:03 PM 02/28/2022 5:09 PM This order reflects the patients wishes and were consensually agreed upon. Full Code 02/08/2022 10:12 AM 02/11/2022 7:47 PM This order reflects the patients wishes and were consensually agreed upon. Full Code 02/08/2022 7:10 AM 02/08/2022 10:12 AM This order reflects the patients wishes and were consensually agreed upon. Full Code 09/18/2018 8:04 AM 09/24/2018 10:38 PM This o rder reflects the patients wishes and were consensually agreed upon. Question Answer Comments Discussion of Advance Directives occurred with: Not Discussed Does the patient have a Living Will? Yes, not currently available Does the patient have Health Care Power of Director Of Payroll? Yes, not currently available Care Teams Linen Clerk Relationship Specialty Start Date End Date , Alex Anguiano MD [address] [place] [address] PCP - General Internal Medicine 08/19/14 documented as of this encounter
[2023-11-15] MEDS: LORazepam 1 MG/1 ML SYR ED Inj Use IV STA ×2 (19:55→21:47)
[2023-11-15] MEDS: ONDANSETRON INJ 2 MG/ML 2 ML VIAL IV STA (19:55)
[2023-11-15 20:01] LABS: iSTAT Creatinine 0.8 mg/dl (0.6-1.3); iSTAT Ionized Calcium 1.19 mmol/l (1.12-1.32); iSTAT Potassium 3.3 mmol/L (3.3-5.0)
[2023-11-15] MEDS: OPTIRAY 320 125ml IV ONE (20:01)
[2023-11-15 20:03] LABS: Basophils # (auto) 0.07 K/uL (0.00-0.20); Basophils % (auto) 0.7 %; Eosinophils # (auto) 0.13 K/uL (0.00-0.50); Eosinophils % (auto) 1.2 %; Hematocrit (blood only) 39.8 % (37.0-47.0); Hemoglobin 14.1 g/dl (12.0-16.0); Immature Granulocytes # (auto) 0.02 K/uL (0.01-0.20); Immature Granulocytes % (auto) 0.2 %; Lymphocytes # (auto) 2.91 K/uL (1.20-3.40); Lymphocytes % (auto) 27.9 %; Mean Corpuscular Hemoglobin 30.9 pg (25.0-34.0); Mean Corpuscular Hgb Conc 35.4 g/dL (32.0-36.0); Mean Corpuscular Volume 87.1 fL (80.0-100.0); Mean Platelet Volume 8.9 fL (9.4-12.4); Monocytes # (auto) 0.75 K/uL (0.11-0.59); Monocytes % (auto) 7.2 %; Neutrophils # (auto) 6.56 K/uL (1.40-6.50); Neutrophils % (auto) 62.8 %; Platelet Count 431 K/uL (130-400); RDW Coefficient of Variation 12.6 % (11.5-14.5); RDW Standard Deviation 39.8 fL (36.4-46.3); Red Blood Count 4.57 M/uL (4.20-5.40); White Blood Count 10.44 K/ul (4.8-10.8)
[2023-11-15 20:12] LABS: Alanine Aminotransferase 21 U/L (7-52); Albumin Globulin Ratio 1.6 (0.9-2); Alkaline Phosphatase 93 U/L (34-104); Anion Gap 10 (3-11); Aspartate Aminotransferase 24 U/L (13-39); BUN Creatinine Ratio 14.5 (10-20); Bilirubin,Total 0.3 mg/dl (0.2-1.0); Blood Urea Nitrogen 12 mg/dl (6-23); Calcium 9.9 mg/dl (8.6-10.3); Carbon Dioxide 27 mmol/L (21-32); Chloride 102 mmol/L (98-107); Est GFR (African American) 94.6 ml/min; Est GFR (Non-African American) 81.6 ml/min; Globulin 3.2 gm/dl (2.5-4.0); Glucose 93 mg/dl (70-99(Fasting)); Potassium 3.4 mmol/L (3.5-5.1); Sodium 139 mmol/L (136-145); Total Protein 8.2 gm/dl (6.0-8.3)
--- NOTE | 2023-11-15 20:16 | Emergency Department Note ---
Impression & Plan Stroke-like symptoms, Factor V Leiden ED Provider Note NAME: BRIAN Calderon ELDER AGE: 53 SEX: Female INFORMANT: Patient ED PROVIDER(S): Xu Romero MD CHIEF COMPLAINT: Right-sided numbness and weakness PLAN: Disposition: Admitted Outpatient prescription management: none Referral: None MEDICAL DECISION MAKING: Patient presented with strokelike symptoms. These occurred 5 hours prior to arrival. Patient is not within the window for TNK. Physical examination revealed subjective tingling/numbness on the right side of the lower face and right upper extremity. Patient noted nausea and was treated with Zofran. She was also quite anxious due to the symptoms and I discussed treating this. Patient was given 0.5 mg of IV Ativan. Patient was taken emergently for CT imaging. ECG showed a normal sinus rhythm without acute ischemia. Patient's blood pressure improved on reassessment. She was still feeling the same symptoms. CT and CT angiography of the head and neck were negative for acute process per radiology. The patient was still very anxious. Additional Ativan was ordered. Patient did take aspirin prior to arrival. Discussed the case with Dr. De Souza of neurology. He recommended aspirin as well as MR imaging. Consultation was made with Dr. Dedrick Garcia of the [facility] service. Patient was evaluated in the ER for further management. Care/management discussed with: manager garage Level of care consideration(s): After review of the information above and other included data, I feel the patient requires escalation of care to admission Triage Nursing notes: reviewed and agree them. Vital Signs: reviewed and remarkable for hypertension Additional History obtained from: Patient significant other who confirms symptom onset 1500 hrs. today Chronic Medical/Social Conditions affecting care: Factor V Leiden, medication noncompliance with anticoagulation Prior/ Outside/ External records reviewed: none Differential Diagnosis: CVA, TIA,Infection, dehydration, metabolic abnormality, hypo/hyperglycemia, electrolyte disturbance, anemia, hypoxia, cardiac sources, intracerebral event, toxicologic, neurologic, as well as other pathologies. Diagnostics, independently interpreted by me: ECG: Twelve-lead ECG reveals normal sinus rhythm at [address] No [address] elevation or depression. No PACs or PVCs. Cardiac Monitoring: Cardiac monitoring ordered by me: The patient was placed on continuous cardiac monitoring and observed. It revealed a normal sinus rhythm at 91 beats per minute without ectopy or evidence of dysrhythmia. Medical decision rules: none Imaging studies: Head CT: A noncontrast CT scan of the head was performed and was negative for tumor, fracture, intracranial hemorrhage, or other acute pathology. HPI: 53 year old Female arrives for evaluation of right-sided numbness and weakness. This started at 1500 hrs. today, 5 hours ago, and is persisting. The patient also notes the following associated symptoms, nausea, numbness in the right side of the tongue, right upper extremity, and feeling generally weak. Patient also notes that her ears feel like there is cotton in them and she has some blurry vision but no double vision. The patient has taken no medication for relieving factors. Current pain is rated as 0/10. Patient has a history of factor V Leiden. She states that she supposed to be on Eliquis but is not taking it. She does have a history of PE. Pt denies LOC, headache, fevers, chills, diaphoresis, neck pain, chest pain, breathing difficulties, vomiting, abdominal pain, back pain, melena, hematochezia, urinary symptoms, lymphadenopathy, rash, or other complaints. . PAST MEDICAL HISTORY: See Below, factor V Leiden, pulmonary embolism PAST SURGICAL HISTORY: See Below, SOCIAL HISTORY: See Below, non-smoker HOME MEDICATIONS: See Below ALLERGIES: See Below VITALS: See Below PHYSICAL EXAMINATION: GENERAL: Awake, alert, anxious-appearing, in mild distress HENT: Normocephalic, atraumatic. Oropharynx unremarkable. EYES: Normal conjunctiva. Sclera non-icteric. PERRLA. EOMI. No nystagmus. NECK: Inspection normal. Non-tender. Supple. No nuchal rigidity. FROM. No masses. RESPIRATORY: Clear to auscultation. No wheezes. No rales. Normal respiratory effort. CARDIAC: Normal rate. Normal rhythm. No murmurs. No rubs. Extremities warm and well perfused. Pulses equal. No JVD. GI: Soft, non-distended. No tenderness to palpation. No rebound or guarding. No masses. RECTAL: Deferred. MUSCULOSKELETAL: Atraumatic. Chest examination reveals no tenderness. The back is symmetrical on inspection without obvious abnormality. There is no CVA tenderness to palpation. No joint edema. LOWER EXTREMITIES: Calves are equal size bilaterally and non-tender. No edema. No discoloration. NEURO: Normal sensorium. Speech normal. Cranial nerves II through XII intact except for some subjective decrease sensation in the mandibular division of the trigeminal nerve on the right. Patient also notes some subjective decrease sensation in the right upper extremity.No other sensory or motor deficits noted. No drift. Normal [id number]. Normal speech. SKIN: No rash or jaundice noted. PROCEDURES: none CRITICAL CARE: none OBSERVATION NOTE: none Past Med/Surg History Medical History Asthma Only uses inhaler during illness. Last use was over few months ago. H/o hospitalization as a child Bipolar disorder Factor V Leiden History of chlamydia History of genital warts History of pulmonary embolism Last episode in 2008. On ; last dose on Friday Severe dysplasia of cervix (PEDRITO III) Suicidal ideation TIA (transient ischemic attack) Weakness on right side. No residual weakness. Surgical History H/O cystoscopy 2012-mac 3 gr I view, #7.0 ETT History of back surgery History of cholecystectomy History of hysterectomy S/P breast augmentation S/P cosmetic plastic surgery liposuction S/P laparoscopic hysterectomy S/P LEEP S/P ovarian cystectomy Status post dilation and curettage Status post rotator cuff repair Family History Sister Pulmonary embolism Mother Breast cancer, Onset Age: 72 triple negative Father Prostate cancer Other Cerebral atherosclerosis Diabetes Dyslipidemia Family history non-contributory Hypertension Denies family history of Ovarian cancer Colorectal cancer Social History Smoking Status: Never smoker Do You Dip or Chew Tobacco: No; Hx Alcohol Use: Yes Alcohol type: beer and wine Hx Substance Use: No Preferred Language: Latvian Communication Ability: Effective Visual Impairment: No Limitations Sales Support Advisor Required: No Beliefs That Will Affect Care: None marital status: Current Living Situation: Spouse How many Children do You have: 1 Feels Safe at Home: Yes Safety Concerns: Feels Safe At This Time Assistive Devices: Glasses Allergies Allergies Allergy/AdvReac Type Severity Reaction Status Date / Time animal dander Allergy Intermediate HIVES, Verified 11/15/23 23:10 SOB, HX ASTHMA house dust mite Allergy Intermediate HIVES, Verified 11/15/23 23:10 SOB, HX ASTHMA mold Allergy Intermediate HIVES, Verified 11/15/23 23:10 SOB, HX ASTHMA pollen extracts Allergy Intermediate HIVES, Verified 11/15/23 23:10 SOB, HX ASTHMA dexamethasone [From Decadron] AdvReac Intermediate WHOLE BODY Verified 11/15/23 23:10 FELT LIKE BURNING INSIDE. tramadol AdvReac Unknown Adverse Verified 11/15/23 23:10 results with other prescribed medications Home Meds Home Medications Medication Instructions Recorded Confirmed dextroamphetamine-amphetamine ER 30 mg PO QAM 06/07/18 11/15/23 30 mg 24hr capsule,extend release (Adderall XR) lamotrigine 150 mg tablet 150 mg PO HS 06/07/18 11/15/23 (Lamictal) calcium carbonate 600 mg-vitamin 1 cap PO DAILY 06/08/18 11/15/23 D3 5 mcg (200 unit) capsule (Calcium 600 + D(3)) omega-3 fatty acids 1,000 mg 1,000 mg PO QAM 03/12/19 11/15/23 capsule escitalopram oxalate 10 mg tablet 10 mg PO QPM 10/22/19 11/15/23 quetiapine 100 mg tablet 100 mg PO QPM 10/22/19 11/15/23 tizanidine 4 mg tablet 4 mg PO Q8 PRN Migraine Headache 10/09/22 11/15/23 Heavy Duty Powder Mvi 1 dose PO DAILY 11/15/23 11/15/23 alprazolam 1 mg tablet 1 mg PO QPM PRN Anxiety 11/15/23 11/15/23 risperidone 1 mg tablet 1 mg PO QPM 11/15/23 11/15/23 Previous Rx's Medication Instructions Recorded ondansetron 4 mg disintegrating 4 mg PO Q6H PRN nausea and 10/10/22 tablet vomiting #10 tabs Results & Data (ED) Vital Signs Vital Signs - 24 hr 11/15/23 19:30 11/15/23 19:36 11/15/23 19:39 Temperature 36.3 C L Temperature Source Temporal Artery Scan Pulse Rate 84 87 Pulse Rate [Apical] 91 H Respiratory Rate 18 22 Respiratory Effort / Characteristics Non-Labored Spontaneous Non-Labored Spontaneous Respiratory Depth Normal Normal Respiratory Pattern Regular Regular Blood Pressure 136/85 Blood Pressure [Right Arm] 161/84 H Blood Pressure Mean 102 Blood Pressure Mean [Right Arm] 109 Blood Pressure Position [Right Arm] Semi-fowlers Pulse Oximetry 100 96 Oxygen Delivery Method Room Air Room Air Sepsis Recent Fever Within 48 Hours No Sepsis New/Unexplained Change in Mental Status No Sepsis Action Taken by Nursing No Action Required 11/15/23 21:00 Temperature Temperature Source Pulse Rate Pulse Rate [Apical] 75 Respiratory Rate 22 Respiratory Effort / Characteristics Non-Labored Spontaneous Respiratory Depth Normal Respiratory Pattern Regular Blood Pressure Blood Pressure [Right Arm] 120/87 Blood Pressure Mean Blood Pressure Mean [Right Arm] 98 Blood Pressure Position [Right Arm] Semi-fowlers Pulse Oximetry 98 Oxygen Delivery Method Room Air Sepsis Recent Fever Within 48 Hours Sepsis New/Unexplained Change in Mental Status Sepsis Action Taken by Nursing Laboratory Data 11/15/23 19:41 11/15/23 19:41 Lab Results 11/15/23 11/15/23 11/15/23 Range/Units 19:39 19:41 19:49 WBC 10.44 (4.8-10.8) K/ul RBC 4.57 (4.20-5.40) M/uL Hgb 14.1 (12.0-16.0) g/dl POC Hgb 15.0 (12.0-16.0) g/dl Hct 39.8 (37.0-47.0) % POC Hct 44 (37-47) % MCV 87.1 (80.0-100.0) fL MCH 30.9 (25.0-34.0) pg MCHC 35.4 (32.0-36.0) g/dL RDW Std Deviation 39.8 (36.4-46.3) fL RDW Coeff of [place]ina 12.6 (11.5-14.5) % Plt Count 431 H (130-400) K/uL MPV 8.9 L (9.4-12.4) fL Immature Gran % (Auto) 0.2 % Neut % (Auto) 62.8 % Lymph % (Auto) 27.9 % [place] % (Auto) 7.2 % Eos % (Auto) 1.2 % Baso % (Auto) 0.7 % Neut # (Auto) 6.56 H (1.40-6.50) K/uL Lymph # (Auto) 2.91 (1.20-3.40) K/uL [place] # (Auto) 0.75 H (0.11-0.59) K/uL Eos # (Auto) 0.13 (0.00-0.50) K/uL Baso # (Auto) 0.07 (0.00-0.20) K/uL Immature Gran # (Auto) 0.02 (0.01-0.20) K/uL PT 10.6 (9.0-12.0) Seconds INR 1.0 (0.9-1.1) APTT 25 (21-31) Seconds PTT Ratio 0.9 POC Sodium 141 (135-144) mmol/L Sodium 139 (136-145) mmol/L POC Potassium 3.3 (3.3-5.0) mmol/L Potassium 3.4 L (3.5-5.1) mmol/L POC Chloride 101 (101-112) mmol/L Chloride 102 (98-107) mmol/L Carbon Dioxide 27 (21-32) mmol/L POC Total CO2 26 (24-31) mmol/L Anion Gap 10 (3-11) POC Anion Gap 18.0 (16-25) mmol/L POC BUN 11 (7-18) mg/dl BUN 12 (6-23) mg/dl Creatinine 0.83 (0.6-1.2) mg/dl POC Creatinine 0.8 (0.6-1.3) mg/dl Est Cr Clr Drug Dosing Not Reportable Est GFR ( Amer) 94.6 ml/min Est GFR (Non-Af Amer) 81.6 ml/min BUN/Creatinine Ratio 14.5 (10-20) Glucose 93 (70-99(Fasting)) mg/dl POC Glucose 108 H (70-99) mg/dl POC Glucose (other) 96 (70-99) mg/dl Calcium 9.9 (8.6-10.3) mg/dl POC Ioniz Calcium Katie 1.19 (1.12-1.32) mmol/l Magnesium 2.0 (1.7-2.4) mg/dl Total Bilirubin 0.3 (0.2-1.0) mg/dl AST 24 (13-39) U/L ALT 21 (7-52) U/L Alkaline Phosphatase 93 (34-104) U/L Troponin I High Sens < 2.3 (0-14) pg/ml Total Protein 8.2 (6.0-8.3) gm/dl Albumin 5.0 (3.4-5.0) gm/dl Globulin 3.2 (2.5-4.0) gm/dl Albumin/Globulin Ratio 1.6 (0.9-2) Lyme Disease Screen Negative (Negative) Blood Type Antibody Screen 11/15/23 Range/Units 19:53 WBC (4.8-10.8) K/ul RBC (4.20-5.40) M/uL Hgb (12.0-16.0) g/dl POC Hgb (12.0-16.0) g/dl Hct (37.0-47.0) % POC Hct (37-47) % MCV (80.0-100.0) fL MCH (25.0-34.0) pg MCHC (32.0-36.0) g/dL RDW Std Deviation (36.4-46.3) fL RDW Coeff of [place] (11.5-14.5) % Plt Count (130-400) K/uL MPV (9.4-12.4) fL Immature Gran % (Auto) % Neut % (Auto) % Lymph % (Auto) % [place] % (Auto) % Eos % (Auto) % Baso % (Auto) % Neut # (Auto) (1.40-6.50) K/uL Lymph # (Auto) (1.20-3.40) K/uL [place] # (Auto) (0.11-0.59) K/uL Eos # (Auto) (0.00-0.50) K/uL Baso # (Auto) (0.00-0.20) K/uL Immature Gran # (Auto) (0.01-0.20) K/uL PT (9.0-12.0) Seconds INR (0.9-1.1) APTT (21-31) Seconds PTT Ratio POC Sodium (135-144) mmol/L Sodium (136-145) mmol/L POC Potassium (3.3-5.0) mmol/L Potassium (3.5-5.1) mmol/L POC Chloride (101-112) mmol/L Chloride (98-107) mmol/L Carbon Dioxide (21-32) mmol/L POC Total CO2 (24-31) mmol/L Anion Gap (3-11) POC Anion Gap (16-25) mmol/L POC BUN (7-18) mg/dl BUN (6-23) mg/dl Creatinine (0.6-1.2) mg/dl POC Creatinine (0.6-1.3) mg/dl Est Cr Clr Drug Dosing Est GFR ( Amer) ml/min Est GFR (Non-Af Amer) ml/min BUN/Creatinine Ratio (10-20) Glucose (70-99(Fasting)) mg/dl POC Glucose (70-99) mg/dl POC Glucose (other) (70-99) mg/dl Calcium (8.6-10.3) mg/dl POC Ioniz Calcium Katie (1.12-1.32) mmol/l Magnesium (1.7-2.4) mg/dl Total Bilirubin (0.2-1.0) mg/dl AST (13-39) U/L ALT (7-52) U/L Alkaline Phosphatase (34-104) U/L Troponin I High Sens (0-14) pg/ml Total Protein (6.0-8.3) gm/dl Albumin (3.4-5.0) gm/dl Globulin (2.5-4.0) gm/dl Albumin/Globulin Ratio (0.9-2) Lyme Disease Screen (Negative) Blood Type A Positive Antibody Screen NEGATIVE Administered Medications Acetaminophen (Acetaminophen 500 Mg Tab) 1,000 mg PO Q8H PRN PRN Reason: Pain or Fever Stop: 12/15/23 22:42 Last Admin: 11/16/23 00:27 Dose: 1,000 mg Documented By: ANDREY Alprazolam (Alprazolam 0.5 Mg Tablet) 1 mg PO HS MIN Stop: 12/15/23 23:39 Last Admin: 11/15/23 23:47 Dose: 1 mg Documented By: ANDREY Discontinued Medications Hydroxyzine HCl (Hydroxyzine Hcl 25 Mg Tab) 50 mg PO NOW STA Stop: 11/15/23 22:32 Last Admin: 11/15/23 22:38 Dose: 50 mg Documented By: NITIN Ioversol (Optiray 320 125ml) 116 ml IV ONCE ONE Stop: 11/15/23 20:02 Last Admin: 11/15/23 20:01 Dose: 116 ml Documented By: USAMA Lorazepam (Lorazepam 1 Mg/1 Ml Syr Ed Inj Use) 0.5 mg IV ONE STA Stop: 11/15/23 19:52 Last Admin: 11/15/23 19:55 Dose: 0.5 mg Documented By: NITIN Lorazepam (Lorazepam 1 Mg/1 Ml Syr Ed Inj Use) 1 mg IV ONE STA Stop: 11/15/23 21:31 Last Admin: 11/15/23 21:47 Dose: 1 mg Documented By: NITIN Ondansetron HCl (Ondansetron Inj 2 Mg/Ml 2 Ml Vial) 4 mg IV NOW STA Stop: 11/15/23 19:52 Last Admin: 11/15/23 19:55 Dose: 4 mg Documented By: NITIN Imaging Data Radiologist's Impression: Chest X-Ray 11/15/23 19:36 SINGLE VIEW CHEST CLINICAL HISTORY: Neurological deficit. Stroke like symptoms. FINDINGS: An AP, portable, upright chest radiograph is compared to study dated 12/21/2021. The cardiomediastinal silhouette is unremarkable. There is bibasilar scarring/atelectasis. No airspace consolidation or large pleural effusion is identified. No pneumothorax is seen. Cholecystectomy clips are seen in the right upper quadrant. The skeletal structures are osteopenic and appear intact. Degenerative change is noted in the spine. Fusion hardware at the thoracolumbar junction has been removed. IMPRESSION: No active disease in the chest. ACT 112: Negative or not required by law. Electronically signed by: Femi Watters M.D. 11/15/2023 9:[address] 11/15/23 19:[address] OF THE BRAIN; CT ANGIOGRAM OF THE BRAIN; CT ANGIOGRAM OF THE NECK CLINICAL HISTORY: Neurological deficit. Stroke like symptoms. COMPARISON STUDY: CT of the brain dated 10/03/2023. CT angiogram of the head and neck dated 10/09/2022. TECHNIQUE: Unenhanced axial CT scan of the brain is performed. Subsequently, following the IV administration of 116 of Optiray 320, CT angiogram of the head and neck was performed from the aortic arch to the vertex. Images are reviewed in the axial, sagittal, and coronal planes. 3-D MIPS images are created and assessed. IV contrast was administered without complication. All measurements were calculated based on NASCET criteria. A dose lowering technique was utilized adhering to the principles of ALARA. CT DOSE: 1324.21 mGy.cm FINDINGS: Brain parenchyma: The brain parenchyma is normal in appearance. There is no hemorrhage, mass effect, or evidence of acute territorial ischemia by CT criteria. There is no evidence of enhancing mass lesion on the angiogram phase images. The ventricles, sulci, and cisterns are normal in configuration. Dickey- white matter differentiation is preserved. No extra-axial fluid collection is seen. Thoracic aorta: Visualized portions of the thoracic aorta are normal in caliber. The aortic arch demonstrates standard 3-vessel anatomy. Right carotid arterial system: The right common carotid artery is widely patent, as are the right internal and external carotid arteries. Left carotid arterial system: The left common carotid artery is widely patent, as are the left internal and external carotid arteries. Vertebral arteries: Widely patent bilaterally and codominant. Subclavian arteries: Widely patent bilaterally. Intracranial vasculature: The [place] of [place] is developmentally complete. The internal carotid arteries are patent at the skull base, as are the anterior and middle cerebral arteries bilaterally. The vertebrobasilar system and posterior cerebral arteries are widely patent. The vertebral arteries are codominant. There is no aneurysm, high-grade stenosis, or focal vessel cut off seen throughout the intracranial circulation. Jugular veins: Patent bilaterally. Dural sinuses: Patent. Lung apices: Partially visualized upper lobe lung parenchyma appears clear. Soft tissues: The visualized pharyngeal soft tissues are normal in appearance noting angiographic phase technique. The oropharyngeal airway appears widely patent. The salivary and thyroid glands are normal in appearance. No cervical lymphadenopathy is seen. Skeletal structures: The calvarium appears intact. The cervical spine is within normal limits. Orbits: The bony orbits are intact. Orbital contents are normal as visualized. Sinuses and mastoids: There is evidence of previous paranasal sinus surgery. There is mild mucosal thickening within the maxillary antra The ethmoid resection cavity. The mastoid air cells are well pneumatized. IMPRESSION: 1. There is no hemorrhage, mass effect, or evidence of acute territorial ischemia by CT criteria. 2. Unremarkable CT angiogram of the brain. 3. Unremarkable CT angiogram of the neck. ACT 112: Negative or not required by law. Electronically signed by: Femi Watters M.D. 11/15/2023 8:20 PM Head CTA 11/15/23 19:[address] OF THE BRAIN; CT ANGIOGRAM OF THE BRAIN; CT ANGIOGRAM OF THE NECK CLINICAL HISTORY: Neurological deficit. Stroke like symptoms. COMPARISON STUDY: CT of the brain dated 10/03/2023. CT angiogram of the head and neck dated 10/09/2022. TECHNIQUE: Unenhanced axial CT scan of the brain is performed. Subsequently, following the IV administration of 116 of Optiray 320, CT angiogram of the head and neck was performed from the aortic arch to the vertex. Images are reviewed in the axial, sagittal, and coronal planes. 3-D MIPS images are created and assessed. IV contrast was administered without complication. All measurements were calculated based on NASCET criteria. A dose lowering technique was utilized adhering to the principles of ALARA. CT DOSE: 1324.21 mGy.cm FINDINGS: Brain parenchyma: The brain parenchyma is normal in appearance. There is no hemorrhage, mass effect, or evidence of acute territorial ischemia by CT criteria. There is no evidence of enhancing mass lesion on the angiogram phase images. The ventricles, sulci, and cisterns are normal in configuration. Dickey- white matter differentiation is preserved. No extra-axial fluid collection is seen. Thoracic aorta: Visualized portions of the thoracic aorta are normal in caliber. The aortic arch demonstrates standard 3-vessel anatomy. Right carotid arterial system: The right common carotid artery is widely patent, as are the right internal and external carotid arteries. Left carotid arterial system: The left common carotid artery is widely patent, as are the left internal and external carotid arteries. Vertebral arteries: Widely patent bilaterally and codominant. Subclavian arteries: Widely patent bilaterally. Intracranial vasculature: The [place] of [place] is developmentally complete. The internal carotid arteries are patent at the skull base, as are the anterior and middle cerebral arteries bilaterally. The vertebrobasilar system and posterior cerebral arteries are widely patent. The vertebral arteries are codominant. There is no aneurysm, high-grade stenosis, or focal vessel cut off seen throughout the intracranial circulation. Jugular veins: Patent bilaterally. Dural sinuses: Patent. Lung apices: Partially visualized upper lobe lung parenchyma appears clear. Soft tissues: The visualized pharyngeal soft tissues are normal in appearance noting angiographic phase technique. The oropharyngeal airway appears widely patent. The salivary and thyroid glands are normal in appearance. No cervical lymphadenopathy is seen. Skeletal structures: The calvarium appears intact. The cervical spine is within normal limits. Orbits: The bony orbits are intact. Orbital contents are normal as visualized. Sinuses and mastoids: There is evidence of previous paranasal sinus surgery. There is mild mucosal thickening within the maxillary antra The ethmoid resection cavity. The mastoid air cells are well pneumatized. IMPRESSION: 1. There is no hemorrhage, mass effect, or evidence of acute territorial ischemia by CT criteria. 2. Unremarkable CT angiogram of the brain. 3. Unremarkable CT angiogram of the neck. ACT 112: Negative or not required by law. Electronically signed by: Femi Watters M.D. 11/15/2023 8:20 PM Neck CTA 11/15/23 19:[address] OF THE BRAIN; CT ANGIOGRAM OF THE BRAIN; CT ANGIOGRAM OF THE NECK CLINICAL HISTORY: Neurological deficit. Stroke like symptoms. COMPARISON STUDY: CT of the brain dated 10/03/2023. CT angiogram of the head and neck dated 10/09/2022. TECHNIQUE: Unenhanced axial CT scan of the brain is performed. Subsequently, following the IV administration of 116 of Optiray 320, CT angiogram of the head and neck was performed from the aortic arch to the vertex. Images are reviewed in the axial, sagittal, and coronal planes. 3-D MIPS images are created and assessed. IV contrast was administered without complication. All measurements were calculated based on NASCET criteria. A dose lowering technique was utilized adhering to the principles of ALARA. CT DOSE: 1324.21 mGy.cm FINDINGS: Brain parenchyma: The brain parenchyma is normal in appearance. There is no hemorrhage, mass effect, or evidence of acute territorial ischemia by CT criteria. There is no evidence of enhancing mass lesion on the angiogram phase images. The ventricles, sulci, and cisterns are normal in configuration. Dickey- white matter differentiation is preserved. No extra-axial fluid collection is seen. Thoracic aorta: Visualized portions of the thoracic aorta are normal in caliber. The aortic arch demonstrates standard 3-vessel anatomy. Right carotid arterial system: The right common carotid artery is widely patent, as are the right internal and external carotid arteries. Left carotid arterial system: The left common carotid artery is widely patent, as are the left internal and external carotid arteries. Vertebral arteries: Widely patent bilaterally and codominant. Subclavian arteries: Widely patent bilaterally. Intracranial vasculature: The [place] is developmentally complete. The internal carotid arteries are patent at the skull base, as are the anterior and middle cerebral arteries bilaterally. The vertebrobasilar system and posterior cerebral arteries are widely patent. The vertebral arteries are codominant. There is no aneurysm, high-grade stenosis, or focal vessel cut off seen throughout the intracranial circulation. Jugular veins: Patent bilaterally. Dural sinuses: Patent. Lung apices: Partially visualized upper lobe lung parenchyma appears clear. Soft tissues: The visualized pharyngeal soft tissues are normal in appearance noting angiographic phase technique. The oropharyngeal airway appears widely patent. The salivary and thyroid glands are normal in appearance. No cervical lymphadenopathy is seen. Skeletal structures: The calvarium appears intact. The cervical spine is within normal limits. Orbits: The bony orbits are intact. Orbital contents are normal as visualized. Sinuses and mastoids: There is evidence of previous paranasal sinus surgery. There is mild mucosal thickening within the maxillary antra The ethmoid resection cavity. The mastoid air cells are well pneumatized. IMPRESSION: 1. There is no hemorrhage, mass effect, or evidence of acute territorial ischemia by CT criteria. 2. Unremarkable CT angiogram of the brain. 3. Unremarkable CT angiogram of the neck. ACT 112: Negative or not required by law. Electronically signed by: Femi Watters M.D. 11/15/2023 8:20 PM Brain MRI 11/15/23 21:30 MRI OF THE BRAIN WITHOUT IV CONTRAST CLINICAL HISTORY: Strokelike symptoms. COMPARISON STUDY: CT of the brain dated 11/15/2023. TECHNIQUE: MRI of the brain was performed utilizing various T1 and T2-weighted sequences in the axial, sagittal, and coronal planes. IV contrast was not administered for this examination. FINDINGS: Brain parenchyma: The brain parenchyma is normal in appearance. There is no hemorrhage or mass effect. There is no restricted diffusion to suggest acute ischemia. Dickey-white matter differentiation is preserved. No extra-axial fluid collection is seen. The cerebellar tonsils are normal in configuration. Ventricles, sulci, and cisterns: Normal in configuration. Pituitary and sella: Unremarkable. Intracranial vasculature: Normal flow voids are maintained at the skull base. Orbits: The bony orbits are grossly intact. Orbital contents are normal in appearance. Sinuses and mastoids: There is evidence of previous paranasal sinus surgery. Mild mucosal thickening is noted in the maxillary antra. The mastoid air cells are clear. Calvarium: Unremarkable. Cervical cord: Partially visualized cervical spinal cord is normal in morphology and signal intensity. IMPRESSION: No acute intracranial abnormality. ACT 112: Negative or not required by law. Electronically signed by: Femi Watters M.D. 11/15/2023 10:27 PM Discharge Plan Visit Data Chief Complaint: TIA Symptoms Stated Complaint: RT SIDE NUMBNESS, DIZZY, WEAKNESS, TONGUE NUMB ED Provider: Xu Romero Discharge Problem: Stroke-like symptoms, Factor V Leiden Patient Disposition: Admitted As Inpatient Discharge Instructions Interventions: ED Discharge Assessment Last Done: 11/15/23 22:44
[2023-11-15 20:18] LABS: Troponin I High Sensitivity < 2.3 pg/ml (0-14)
--- NOTE | 2023-11-15 20:23 | CT Scan Report ---
UNENHANCED CT OF THE BRAIN; CT ANGIOGRAM OF THE BRAIN; CT ANGIOGRAM OF THE NECK CLINICAL HISTORY: Neurological deficit. Stroke like symptoms. COMPARISON STUDY: CT of the brain dated 10/03/2023. CT angiogram of the head and neck dated 10/09/2022 . TECHNIQUE: Unenhanced axial CT scan of the brain is performed. Subsequently, following the IV adminis tration of 116 of [address] 320, CT angiogram of the head and neck was performed from the aortic arch t o the vertex. Images are reviewed in the axial, sagittal, and coronal planes. 3-D MIPS images are cre ated and assessed. IV contrast was administered without complication. All measurements were calculate d based on NASCET criteria. A dose lowering technique was utilized adhering to the principles of ALA RA. CT DOSE: 1324.21 mGy.cm FINDINGS: Brain parenchyma: The brain parenchyma is normal in appearance. There is no hemorrhage, mass effect, or evidence of acute territorial ischemia by CT criteria. There is no evidence of enhancing mass lesi on on the angiogram phase images. The ventricles, sulci, and cisterns are normal in configuration. Gr ay-white matter differentiation is preserved. No extra-axial fluid collection is seen. Thoracic aorta: Visualized portions of the thoracic aorta are normal in caliber. The aortic arch demo nstrates standard 3-vessel anatomy. Right carotid arterial system: The right common carotid artery is widely patent, as are the right int ernal and external carotid arteries. Left carotid arterial system: The left common carotid artery is widely patent, as are the left technology development intern al and external carotid arteries. Vertebral arteries: Widely patent bilaterally and codominant. Subclavian arteries: Widely patent bilaterally. Intracranial vasculature: The [place] is developmentally complete. The internal carotid jeff mary are patent at the skull base, as are the anterior and middle cerebral arteries bilaterally. The vertebrobasilar system and posterior cerebral arteries are widely patent. The vertebral arteries are codominant. There is no aneurysm, high-grade stenosis, or focal vessel cut off seen throughout the in tracranial circulation. Jugular veins: Patent bilaterally. Dural sinuses: Patent. Lung apices: Partially visualized upper lobe lung parenchyma appears clear. Soft tissues: The visualized pharyngeal soft tissues are normal in appearance noting angiographic pha se technique. The oropharyngeal airway appears widely patent. The salivary and thyroid glands are nor mal in appearance. No cervical lymphadenopathy is seen. Skeletal structures: The calvarium appears intact. The cervical spine is within normal limits. Orbits: The bony orbits are intact. Orbital contents are normal as visualized. Sinuses and mastoids: There is evidence of previous paranasal sinus surgery. There is mild mucosal th ickening within the maxillary antra The ethmoid resection cavity. The mastoid air cells are well pneumatized. IMPRESSION: 1. There is no hemorrhage, mass effect, or evidence of acute territorial ischemia by CT criteria. 2. Unremarkable CT angiogram of the brain. 3. Unremarkable CT angiogram of the neck. ACT 112: Negative or not required by law. Electronically signed by: Femi Watters M.D. 11/15/2023 8:20 PM
[2023-11-15 20:31] LABS: Partial Thromboplastin Ratio 0.9; Partial Thromboplastin Time 25 Seconds (21-31); Prothrombin Time 10.6 Seconds (9.0-12.0)
--- NOTE | 2023-11-15 21:51 | XRay Report ---
SINGLE VIEW CHEST CLINICAL HISTORY: Neurological deficit. Stroke like symptoms. FINDINGS: An AP, portable, upright chest radiograph is compared to study dated 12/21/2021. The cardiome diastinal silhouette is unremarkable. There is bibasilar scarring/atelectasis. No airspace consolidat ion or large pleural effusion is identified. No pneumothorax is seen. Cholecystectomy clips are seen in the right upper quadrant. The skeletal structures are osteopenic and appear intact. Degenerative c hange is noted in the spine. Fusion hardware at the thoracolumbar junction has been removed. IMPRESSION: No active disease in the chest. ACT 112: Negative or not required by law. Electronically signed by: Femi Watters M.D. 11/15/2023 9:50 PM
--- NOTE | 2023-11-15 22:04 | History & Physical Report ---
"Date of Service November 15, 2023 Assessment & Plan (1) Stroke-like symptoms: (2) Anxiety state, unspecified: (3) Asthma: (4) Hx of venous thrombosis and embolism: (5) Hyperlipidemia, unspecified: (6) Factor V Leiden: Plan Summary: Kimberly is a 53F with PMH of Factor 5 Leiden on anticoagulation, prior VTE, prior TIA, asthma, anxiety w/ depression, BPD, HLD, thrombocytosis, and chronic back pain who presents for acute stroke like symptoms which started 5 hours prior to arrival. She is being admitted for further stroke workup. ED Course: Ativan x 2 for anxiety, Zofran x 1 for nausea Stroke Like Sx | TIA vs Acute CVA Previous VTE |Thrombocytosis | Factor 5 Leiden/Thrombophilia * 5 PM onset * Previous VTE, known Factor 5 Leiden, not taking Eliquis at home > 1 year * BL Venous duplex ordered, pending * CT Head, CT Neck, CTA Head/Neck unremarkable (consider Chest CTA pending sx/Venous duplex results) * MRI ordered, pending * Echocardiogram ordered, pending * CBC/CMP largely unremarkable * Lipid profile & A1c ordered, pending * DVT Ppx: Restart Eliquis in AM * High dose statin ordered, Rosuvastatin 20 mg PO daily * Received Aspirin 325 mg, continue 81 mg PO daily * No Plavix initiated as patient not currently on antiplatelet therapy * Smoking/Alcohol Hx: None * Glucose control: None indicated * BP medication: None indicated Fatigue * Progressing over the course of 3-4 weeks, longstanding history of irregular sleep * CBC/CMP unremarkable * Check Magnesium level (patient notes home supplementation, but worsening leg cramping) * Check Lyme IgG/IgM given walking dog in endemic areas and endorsement of profound fatigue * Consider thyroid testing as outpatient when not in acute setting Anxiety | Depression | BPD | ADD * S/p Lorazepam x 2 in ED for acute anxiety * Continue home medications (Lexapro, Adderall, Lamictal, Quetiapine, and Risperidone) * Restarted home Alprazolam 1 mg PO qPM Chronic Conditions: * Asthma: Albuterol PRN * Chronic Pain: Previously on Oxycodone, note noted in PDMP * HLD: No current management, Lipid profile in AM, would recommend starting high dose statin therapy given TIA x 2 Code Status:Full Diet:Reg IVF:None DVT PPx:Eliquis CM: None Dispo: PCU/tele History of Present Illness Chief Complaint: [id number] Primary Care Provider: Alex Anders MD Kimberly is a 53F with PMH of Factor 5 Leiden on anticoagulation, prior VTE, prior TIA, asthma, anxiety w/ depression, BPD, HLD, thrombocytosis, and chronic back pain who presents for acute stroke like symptoms which started 5 hours prior to arrival. She is being admitted for further stroke workup. Patient notes that at 5 PM today she began experiencing numbness in the right lower half of her face/neck/tongue as well as her right arm. She notes that she was in the car when symptoms began today. She started experiencing severe nausea, followed by 'whooshing' in her ears (bilaterally). She noted having to have her pull the care over when the numbness in her face/mouth started. They subsequently presented to the ED. Patient denies any chest pain, dyspnea, or pleuritic pain. Patient notes that over the last 2 weeks she has been extraordinarily fatigued. On Friday she had a migraine and had to stay home from work for 2 days. On she notes that she was dizzy and stayed home from work. corroborates story of increasing fatigue and excessive sleeping. Patient notes increasing amounts of anxiety throughout the evening, she received Lorazepam 1.5 mg in the ED w/o benefit, she is requesting her home dose of Xanax. Patient notes that she is consistent with her mental health medications at home and has not missed a dose, but that she has not taken Eliquis in over a year due to 'forgetting'. She notes taking many supplements, including Ashwaganda, but is not taking Terrell wort. She denies any bowel/bladder changes. She endorses worsening leg cramps, but denies any calf swelling or deep calf tenderness. She notes that she [place] in a tick endemic area, but denies any recent/potential tick exposure, other than taking her dog out for walks. Allergies Allergy/AdvReac Type Severity Reaction Status Date / Time animal dander Allergy Intermediate HIVES, Verified 11/15/23 23:10 SOB, HX ASTHMA house dust mite Allergy Intermediate HIVES, Verified 11/15/23 23:10 SOB, HX ASTHMA mold Allergy Intermediate HIVES, Verified 11/15/23 23:10 SOB, HX ASTHMA pollen extracts Allergy Intermediate HIVES, Verified 11/15/23 23:10 SOB, HX ASTHMA dexamethasone [From Decadron] AdvReac Intermediate WHOLE BODY Verified 11/15/23 23:10 FELT LIKE BURNING INSIDE. tramadol AdvReac Unknown Adverse Verified 11/15/23 23:10 results with other prescribed medications Home Medications Medication Instructions Recorded Confirmed Type dextroamphetamine-amphetamine ER 30 mg PO QAM 06/07/18 11/15/23 History 30 mg 24hr capsule,extend release (Adderall XR) lamotrigine 150 mg tablet 150 mg PO HS 06/07/18 11/15/23 History (Lamictal) calcium carbonate 600 mg-vitamin 1 cap PO DAILY 06/08/18 11/15/23 History D3 5 mcg (200 unit) capsule (Calcium 600 + D(3)) omega-3 fatty acids 1,000 mg 1,000 mg PO QAM 03/12/19 11/15/23 History capsule escitalopram oxalate 10 mg tablet 10 mg PO QPM 10/22/19 11/15/23 History quetiapine 100 mg tablet 100 mg PO QPM 10/22/19 11/15/23 History tizanidine 4 mg tablet 4 mg PO Q8 PRN Migraine Headache 10/09/22 11/15/23 History Heavy Duty Powder Mvi 1 dose PO DAILY 11/15/23 11/15/23 History alprazolam 1 mg tablet 1 mg PO QPM PRN Anxiety 11/15/23 11/15/23 History risperidone 1 mg tablet 1 mg PO QPM 11/15/23 11/15/23 History aspirin 81 mg tablet,delayed 81 mg PO QAM #90 tabs 11/16/23 Rx release cyanocobalamin (vitamin B-12) 1,000 mcg PO DAILY #90 tabs 11/16/23 Rx 1,000 mcg tablet ondansetron 4 mg disintegrating 4 mg PO Q6H PRN nausea and 11/16/23 Rx tablet vomiting #10 tabs rimegepant 75 mg disintegrating 75 mg PO ONCE PRN migraine 11/16/23 Rx tablet (Nurtec ODT) headache #8 tabs Past Med/Surg History Medical History Asthma Only uses inhaler during illness. Last use was over few months ago. H/o hospitalization as a child Bipolar disorder Factor V Leiden History of chlamydia History of genital warts History of pulmonary embolism Last episode in 2008. On ; last dose on Friday Severe dysplasia of cervix (PEDRITO III) Suicidal ideation TIA (transient ischemic attack) Weakness on right side. No residual weakness. Surgical History H/O cystoscopy 2012-mac 3 gr I view, #7.0 ETT History of back surgery History of cholecystectomy History of hysterectomy S/P breast augmentation S/P cosmetic plastic surgery liposuction S/P laparoscopic hysterectomy S/P LEEP S/P ovarian cystectomy Status post dilation and curettage Status post rotator cuff repair Family History Sister Pulmonary embolism Mother Breast cancer, Onset Age: 72 triple negative Father Prostate cancer Other Cerebral atherosclerosis Diabetes Dyslipidemia Family history non-contributory Hypertension Denies family history of Ovarian cancer Colorectal cancer Social History Smoking Status: Never smoker Do You Dip or Chew Tobacco: No; Hx Alcohol Use: Yes Alcohol type: beer and wine Hx Substance Use: No Preferred Language: [place]i Communication Ability: Effective Visual Impairment: No Limitations Shift Engineer Required: No Beliefs That Will Affect Care: None marital status: Current Living Situation: Spouse How many Children do You have: 1 Feels Safe at Home: Yes Assistive Devices: Glasses Physical Exam Physical Exam: Gen: NAD, alert, interactive HEENT: Supple, no LAD, no thyromegaly, no JVD, MMM Neuro: AO x 3, anxious, CN II-XII grossly intact, PERRLA/EOMI, UE strength 5/5, LE strength 5/5, facial sensation diminished in CV V3 distribution on right Resp:Non-labored, no wheezing/rhonchi/rales, CTAB CV:RRR, normal S1/S2, no M/R/G Abd: Soft, non-distended, no TTP, normoactive bowels, no masses Extr: 2+ dp bilaterally, no edema, no deep calf pain, Reza sign negative Skin: No rashes lesions or erythema Results & Data Results & Data Vital Signs (Past 12 Hours) Vital Signs Temp Pulse Pulse Resp BP BP Pulse Ox 11/15/23 21:00 75 22 120/87 98 11/15/23 19:39 91 H 22 161/84 H 96 11/15/23 19:36 87 11/15/23 19:30 36.3 C L 84 18 136/85 100 O2 Del Method 11/15/23 21:00 Room Air 11/15/23 19:39 Room Air 11/15/23 19:36 11/15/23 19:30 Room Air Diagnostic Findings Chest X-Ray 11/15/23 19:36 IMPRESSION: No active disease in the chest. Head & Neck CT/CTA 11/15/23 19:36 IMPRESSION: 1. There is no hemorrhage, mass effect, or evidence of acute territorial ischemia by CT criteria. 2. Unremarkable CT angiogram of the brain. 3. Unremarkable CT angiogram of the neck. Supervising Physician Co-Signing Physician Notes Attending addendum: I have physically seen this patient, have supervised the medical residents activities, and agree with the H&P unless as otherwise noted. Assessment and Plan: Strokelike symptoms- The patient will be admitted to telemetry for serial cardiac enzymes, serial EKG's, cardiac rhythm monitoring and a 2-D echocardiogram with Dopplers. Stroke without tPA order set CT head without contrast negative CTA head and neck negative MRI of brain negative High-dose statin simvastatin 20 mg daily ordered Status post aspirin 325 mg per protocol, continue 81 mg p.o. daily in the a.m. Check a fasting lipid panel hemoglobin A1c Neurology consulted by ED over the phone, who requested MRI brain and getting aspirin as above Likely complicated migraine History of venous thromboembolism/PE/factor V Leiden- Patient has not taken Eliquis for significant length of time Cannot recheck CTA PE protocol at this point due to previous contrast for head imaging Order venous Dopplers bilateral lower extremities Consider restarting Eliquis in the a.m. Anxiety with depression/migraine- Continue usual medications: Alprazolam, Lexapro, Lamictal, quetiapine, risperidone and tizanidine Symptoms of right-sided facial tingling and right extremity paresthesias likely secondary to complicated migraine Resident Activity Tracking Resident Involvement: Resident Care Provided Care Provided: Adult Hospital Medicine (night)"
--- NOTE | 2023-11-15 22:29 | Magnetic Resonance Report ---
MRI OF THE BRAIN WITHOUT IV CONTRAST CLINICAL HISTORY: Strokelike symptoms. COMPARISON STUDY: CT of the brain dated 11/15/2023. TECHNIQUE: MRI of the brain was performed utilizing various T1 and T2-weighted sequences in the axial , sagittal, and coronal planes. IV contrast was not administered for this examination. FINDINGS: Brain parenchyma: The brain parenchyma is normal in appearance. There is no hemorrhage or mass effect . There is no restricted diffusion to suggest acute ischemia. Dickey-white matter differentiation is pr eserved. No extra-axial fluid collection is seen. The cerebellar tonsils are normal in configuration. Ventricles, sulci, and cisterns: Normal in configuration. Pituitary and sella: Unremarkable. Intracranial vasculature: Normal flow voids are maintained at the skull base. Orbits: The bony orbits are grossly intact. Orbital contents are normal in appearance. Sinuses and mastoids: There is evidence of previous paranasal sinus surgery. Mild mucosal thickening is noted in the maxillary antra. The mastoid air cells are clear. Calvarium: Unremarkable. Cervical cord: Partially visualized cervical spinal cord is normal in morphology and signal intensity . IMPRESSION: No acute intracranial abnormality. ACT 112: Negative or not required by law. Electronically signed by: Femi Watters M.D. 11/15/2023 10:27 PM
[2023-11-15] MEDS: hydrOXYzine HCl 25 MG TAB PO STA (22:38)
[2023-11-15] MEDS ORDERED: ACETAMINOPHEN 325 MG TAB PO PRN (22:43)
[2023-11-15] MEDS ORDERED: ALBUTEROL HFA 8 GM INHALER INH PRN (22:43)
[2023-11-15] MEDS ORDERED: ONDANSETRON INJ 2 MG/ML 2 ML VIAL IV PRN (22:43)
[2023-11-15] MEDS: ALPRAZolam 0.5 MG TABLET PO SCH (23:47)
[2023-11-16] MEDS: ACETAMINOPHEN 500 MG TAB PO PRN (00:27)
[2023-11-16] MEDS: HYDROmorphone INJ 0.5 MG/0.5 ML SYR IV STA ×2 (01:48→03:41)
[2023-11-16] MEDS ORDERED: PROMETHAZINE HCL 6.25 MG in SODIUM CHLORIDE 0.9% 50 ML IV STA (03:27)
[2023-11-16] MEDS: PROMETHAZINE HCL 12.5 MG in SODIUM CHLORIDE 0.9% 50 ML IV STA (03:32)
[2023-11-16] MEDS: diphenhydrAMINE 50 MG/ML VIAL IV STA ×2 (03:32→03:41)
[2023-11-16] MEDS: PROMETHAZINE 6.25 MG/50.25 ML BAG IV STA (03:41)
[2023-11-16 05:14] LABS: Basophils # (auto) 0.09 K/uL (0.00-0.20); Basophils % (auto) 1.1 %; Eosinophils # (auto) 0.34 K/uL (0.00-0.50); Eosinophils % (auto) 4.3 %; Hematocrit (blood only) 41.3 % (37.0-47.0); Immature Granulocytes # (auto) 0.01 K/uL (0.01-0.20); Immature Granulocytes % (auto) 0.1 %; Lymphocytes # (auto) 2.72 K/uL (1.20-3.40); Lymphocytes % (auto) 34.2 %; Mean Corpuscular Hemoglobin 30.2 pg (25.0-34.0); Mean Corpuscular Hgb Conc 33.9 g/dL (32.0-36.0); Mean Platelet Volume 9.2 fL (9.4-12.4); Monocytes # (auto) 0.78 K/uL (0.11-0.59); Monocytes % (auto) 9.8 %; Neutrophils # (auto) 4.01 K/uL (1.40-6.50); Neutrophils % (auto) 50.5 %; Platelet Count 408 K/uL (130-400); RDW Coefficient of Variation 12.7 % (11.5-14.5); RDW Standard Deviation 41.1 fL (36.4-46.3); Red Blood Count 4.64 M/uL (4.20-5.40); White Blood Count 7.95 K/ul (4.8-10.8)
[2023-11-16 05:33] LABS: Albumin Globulin Ratio 1.6 (0.9-2); Albumin Level 4.7 gm/dl (3.4-5.0); Bilirubin,Total 0.3 mg/dl (0.2-1.0); Calcium 9.5 mg/dl (8.6-10.3); Creatinine Clr Calc Pharmacy 80.8 ml/min; Est GFR (Non-African American) 92.3 ml/min; Globulin 2.9 gm/dl (2.5-4.0); Magnesium 2.1 mg/dl (1.7-2.4); Potassium 3.1 mmol/L (3.5-5.1); Total Protein 7.6 gm/dl (6.0-8.3)
[2023-11-16] MEDS: KETOROLAC 30 MG/ML VIAL IV ONE (05:57)
[2023-11-16] MEDS: OLANZapine 10 MG/2.1 ML SDV IM STA (07:50)
[2023-11-16] MEDS ORDERED: ESCITALOPRAM OXALATE 10 MG TAB PO SCH ×2 (09:00→21:00)
[2023-11-16 09:37] LABS: Influenza A virus by PCR Negative (Neg); Influenza B virus by PCR Negative (Neg); RSV by PCR Negative (Neg); SARS CoV2 RNA(COVID-19) Ceph NEGATIVE (Negative)
--- NOTE | 2023-11-16 12:06 | XCELERA ---
[id number]
[2023-11-16] MEDS: POTASSIUM CHLORIDE CRTAB 20 MEQ TABCR PO STA (12:13)
[2023-11-16] MEDS: ASPIRIN 81 MG ECTAB PO SCH (12:14)
[2023-11-16] MEDS: OMEGA-3 (PURIFIED FISH OIL) 1 GM CAP PO SCH (12:14)
[2023-11-16] MEDS: ROSUVASTATIN CALCIUM 20 MG TAB PO SCH (12:14)
[2023-11-16] MEDS: DEXTROAMPHETAMINE/AMPHETAMINE ER 10 MG CAP PO SCH (15:00)
[2023-11-16] MEDS ORDERED: POTASSIUM CHLORIDE CRTAB 20 MEQ TABCR PO STA (15:55)
--- NOTE | 2023-11-16 19:26 | Discharge Summary ---
Date of Service date of admission - November 15, 2023 date of discharge - November 16, 2023 Admission HPI Per Admitting Provider Kimberly is a 53F with PMH of Factor 5 Leiden on anticoagulation, prior VTE, prior TIA, asthma, anxiety w/ depression, BPD, HLD, thrombocytosis, and chronic back pain who presents for acute stroke like symptoms which started 5 hours prior to arrival. She is being admitted for further stroke workup. Patient notes that at 5 PM today she began experiencing numbness in the right lower half of her face/neck/tongue as well as her right arm. She notes that she was in the car when symptoms began today. She started experiencing severe nausea, followed by 'whooshing' in her ears (bilaterally). She noted having to have her pull the care over when the numbness in her face/mouth started. They subsequently presented to the ED. Patient denies any chest pain, dyspnea, or pleuritic pain. Patient notes that over the last 2 weeks she has been extraordinarily fatigued. On Friday she had a migraine and had to stay home from work for 2 days. On she notes that she was dizzy and stayed home from work. corroborates story of increasing fatigue and excessive sleeping. Patient notes increasing amounts of anxiety throughout the evening, she received Lorazepam 1.5 mg in the ED w/o benefit, she is requesting her home dose of Xanax. Patient notes that she is consistent with her mental health medications at home and has not missed a dose, but that she has not taken Eliquis in over a year due to 'forgetting'. She notes taking many supplements, including Ashwaganda, but is not taking Germania wort. She denies any bowel/bladder changes. She endorses worsening leg cramps, but denies any calf swelling or deep calf tenderness. She notes that [place], but denies any recent/potential tick exposure, other than taking her dog out for walks. Principal Diagnosis 1. complicated migraine 2. stroke-like symptoms, numbness of face/arm - due to #1 above; no evidence of stroke on MRI brain; numbness resolved 3. severe insomnia 4. low-normal vitamin B12 level 5. patent foramen ovale (PFO) Discharge Exam gen - NAD face - no droop mouth - MMM neck - no JVD heart - RRR, s1 s2, no murmur lungs - CTA b/l abd - soft NT ND BS+ ext - no edema, pulses 2+ b/l neuro - strength 5/5 x 4 exts; sensation intact to light touch over face, arms, legs Discharge Data Allergies Allergy/AdvReac Type Severity Reaction Status Date / Time animal dander Allergy Intermediate HIVES, Verified 11/15/23 23:10 SOB, HX ASTHMA house dust mite Allergy Intermediate HIVES, Verified 11/15/23 23:10 SOB, HX ASTHMA mold Allergy Intermediate HIVES, Verified 11/15/23 23:10 SOB, HX ASTHMA pollen extracts Allergy Intermediate HIVES, Verified 11/15/23 23:10 SOB, HX ASTHMA dexamethasone [From Decadron] AdvReac Intermediate WHOLE BODY Verified 11/15/23 23:10 FELT LIKE BURNING INSIDE. tramadol AdvReac Unknown Adverse Verified 11/15/23 23:10 results with other prescribed medications Procedures Performed Echocardiogram: * EF 55-60% * grade 1 diastolic dysfunction * likely PFO * mild mitral regurgitation Ordered Studies Chest X-Ray 11/15/23 19:36 SINGLE VIEW CHEST CLINICAL HISTORY: Neurological deficit. Stroke like symptoms. FINDINGS: An AP, portable, upright chest radiograph is compared to study dated 12/21/2021. The cardiomediastinal silhouette is unremarkable. There is bibasilar scarring/atelectasis. No airspace consolidation or large pleural effusion is identified. No pneumothorax is seen. Cholecystectomy clips are seen in the right upper quadrant. The skeletal structures are osteopenic and appear intact. Degenerative change is noted in the spine. Fusion hardware at the thoracolumbar junction has been removed. IMPRESSION: No active disease in the chest. ACT 112: Negative or not required by law. Electronically signed by: Femi Watters M.D. 11/15/2023 9:[address] 11/15/23 19:[address] OF THE BRAIN; CT ANGIOGRAM OF THE BRAIN; CT ANGIOGRAM OF THE NECK CLINICAL HISTORY: Neurological deficit. Stroke like symptoms. COMPARISON STUDY: CT of the brain dated 10/03/2023. CT angiogram of the head and neck dated 10/09/2022. TECHNIQUE: Unenhanced axial CT scan of the brain is performed. Subsequently, following the IV administration of 116 of Optiray 320, CT angiogram of the head and neck was performed from the aortic arch to the vertex. Images are reviewed in the axial, sagittal, and coronal planes. 3-D MIPS images are created and assessed. IV contrast was administered without complication. All measurements were calculated based on NASCET criteria. A dose lowering technique was utilized adhering to the principles of ALARA. CT DOSE: 1324.21 mGy.cm FINDINGS: Brain parenchyma: The brain parenchyma is normal in appearance. There is no hemorrhage, mass effect, or evidence of acute territorial ischemia by CT criteria. There is no evidence of enhancing mass lesion on the angiogram phase images. The ventricles, sulci, and cisterns are normal in configuration. Dickey- white matter differentiation is preserved. No extra-axial fluid collection is seen. Thoracic aorta: Visualized portions of the thoracic aorta are normal in caliber. The aortic arch demonstrates standard 3-vessel anatomy. Right carotid arterial system: The right common carotid artery is widely patent, as are the right internal and external carotid arteries. Left carotid arterial system: The left common carotid artery is widely patent, as are the left internal and external carotid arteries. Vertebral arteries: Widely patent bilaterally and codominant. Subclavian arteries: Widely patent bilaterally. Intracranial vasculature: The mentasta of [place] is developmentally complete. The internal carotid arteries are patent at the skull base, as are the anterior and middle cerebral arteries bilaterally. The vertebrobasilar system and posterior cerebral arteries are widely patent. The vertebral arteries are codominant. There is no aneurysm, high-grade stenosis, or focal vessel cut off seen throughout the intracranial circulation. Jugular veins: Patent bilaterally. Dural sinuses: Patent. Lung apices: Partially visualized upper lobe lung parenchyma appears clear. Soft tissues: The visualized pharyngeal soft tissues are normal in appearance noting angiographic phase technique. The oropharyngeal airway appears widely patent. The salivary and thyroid glands are normal in appearance. No cervical lymphadenopathy is seen. Skeletal structures: The calvarium appears intact. The cervical spine is within normal limits. Orbits: The bony orbits are intact. Orbital contents are normal as visualized. Sinuses and mastoids: There is evidence of previous paranasal sinus surgery. There is mild mucosal thickening within the maxillary antra The ethmoid resection cavity. The mastoid air cells are well pneumatized. IMPRESSION: 1. There is no hemorrhage, mass effect, or evidence of acute territorial ischemia by CT criteria. 2. Unremarkable CT angiogram of the brain. 3. Unremarkable CT angiogram of the neck. ACT 112: Negative or not required by law. Electronically signed by: Femi Watters M.D. 11/15/2023 8:20 PM Head CTA 11/15/23 19:[address] OF THE BRAIN; CT ANGIOGRAM OF THE BRAIN; CT ANGIOGRAM OF THE NECK CLINICAL HISTORY: Neurological deficit. Stroke like symptoms. COMPARISON STUDY: CT of the brain dated 10/03/2023. CT angiogram of the head and neck dated 10/09/2022. TECHNIQUE: Unenhanced axial CT scan of the brain is performed. Subsequently, following the IV administration of 116 of Optiray 320, CT angiogram of the head and neck was performed from the aortic arch to the vertex. Images are reviewed in the axial, sagittal, and coronal planes. 3-D MIPS images are created and assessed. IV contrast was administered without complication. All measurements were calculated based on NASCET criteria. A dose lowering technique was utilized adhering to the principles of ALARA. CT DOSE: 1324.21 mGy.cm FINDINGS: Brain parenchyma: The brain parenchyma is normal in appearance. There is no hemorrhage, mass effect, or evidence of acute territorial ischemia by CT criteria. There is no evidence of enhancing mass lesion on the angiogram phase images. The ventricles, sulci, and cisterns are normal in configuration. Dickey- white matter differentiation is preserved. No extra-axial fluid collection is seen. Thoracic aorta: Visualized portions of the thoracic aorta are normal in caliber. The aortic arch demonstrates standard 3-vessel anatomy. Right carotid arterial system: The right common carotid artery is widely patent, as are the right internal and external carotid arteries. Left carotid arterial system: The left common carotid artery is widely patent, as are the left internal and external carotid arteries. Vertebral arteries: Widely patent bilaterally and codominant. Subclavian arteries: Widely patent bilaterally. Intracranial vasculature: The mentasta of [place] is developmentally complete. The internal carotid arteries are patent at the skull base, as are the anterior and middle cerebral arteries bilaterally. The vertebrobasilar system and posterior cerebral arteries are widely patent. The vertebral arteries are codominant. There is no aneurysm, high-grade stenosis, or focal vessel cut off seen throughout the intracranial circulation. Jugular veins: Patent bilaterally. Dural sinuses: Patent. Lung apices: Partially visualized upper lobe lung parenchyma appears clear. Soft tissues: The visualized pharyngeal soft tissues are normal in appearance noting angiographic phase technique. The oropharyngeal airway appears widely patent. The salivary and thyroid glands are normal in appearance. No cervical lymphadenopathy is seen. Skeletal structures: The calvarium appears intact. The cervical spine is within normal limits. Orbits: The bony orbits are intact. Orbital contents are normal as visualized. Sinuses and mastoids: There is evidence of previous paranasal sinus surgery. There is mild mucosal thickening within the maxillary antra The ethmoid resection cavity. The mastoid air cells are well pneumatized. IMPRESSION: 1. There is no hemorrhage, mass effect, or evidence of acute territorial ischemia by CT criteria. 2. Unremarkable CT angiogram of the brain. 3. Unremarkable CT angiogram of the neck. ACT 112: Negative or not required by law. Electronically signed by: Femi Watters M.D. 11/15/2023 8:20 PM Neck CTA 11/15/23 19:[address] OF THE BRAIN; CT ANGIOGRAM OF THE BRAIN; CT ANGIOGRAM OF THE NECK CLINICAL HISTORY: Neurological deficit. Stroke like symptoms. COMPARISON STUDY: CT of the brain dated 10/03/2023. CT angiogram of the head and neck dated 10/09/2022. TECHNIQUE: Unenhanced axial CT scan of the brain is performed. Subsequently, following the IV administration of 116 of Optiray 320, CT angiogram of the head and neck was performed from the aortic arch to the vertex. Images are reviewed in the axial, sagittal, and coronal planes. 3-D MIPS images are created and assessed. IV contrast was administered without complication. All measurements were calculated based on NASCET criteria. A dose lowering technique was utilized adhering to the principles of ALARA. CT DOSE: 1324.21 mGy.cm FINDINGS: Brain parenchyma: The brain parenchyma is normal in appearance. There is no hemorrhage, mass effect, or evidence of acute territorial ischemia by CT criteria. There is no evidence of enhancing mass lesion on the angiogram phase images. The ventricles, sulci, and cisterns are normal in configuration. Dickey- white matter differentiation is preserved. No extra-axial fluid collection is seen. Thoracic aorta: Visualized portions of the thoracic aorta are normal in caliber. The aortic arch demonstrates standard 3-vessel anatomy. Right carotid arterial system: The right common carotid artery is widely patent, as are the right internal and external carotid arteries. Left carotid arterial system: The left common carotid artery is widely patent, as are the left internal and external carotid arteries. Vertebral arteries: Widely patent bilaterally and codominant. Subclavian arteries: Widely patent bilaterally. Intracranial vasculature: The mentasta of [place] is developmentally complete. The internal carotid arteries are patent at the skull base, as are the anterior and middle cerebral arteries bilaterally. The vertebrobasilar system and posterior cerebral arteries are widely patent. The vertebral arteries are codominant. There is no aneurysm, high-grade stenosis, or focal vessel cut off seen throughout the intracranial circulation. Jugular veins: Patent bilaterally. Dural sinuses: Patent. Lung apices: Partially visualized upper lobe lung parenchyma appears clear. Soft tissues: The visualized pharyngeal soft tissues are normal in appearance noting angiographic phase technique. The oropharyngeal airway appears widely patent. The salivary and thyroid glands are normal in appearance. No cervical lymphadenopathy is seen. Skeletal structures: The calvarium appears intact. The cervical spine is within normal limits. Orbits: The bony orbits are intact. Orbital contents are normal as visualized. Sinuses and mastoids: There is evidence of previous paranasal sinus surgery. There is mild mucosal thickening within the maxillary antra The ethmoid resection cavity. The mastoid air cells are well pneumatized. IMPRESSION: 1. There is no hemorrhage, mass effect, or evidence of acute territorial ischemia by CT criteria. 2. Unremarkable CT angiogram of the brain. 3. Unremarkable CT angiogram of the neck. ACT 112: Negative or not required by law. Electronically signed by: Femi Watters M.D. 11/15/2023 8:20 PM Brain MRI 11/15/23 21:30 MRI OF THE BRAIN WITHOUT IV CONTRAST CLINICAL HISTORY: Strokelike symptoms. COMPARISON STUDY: CT of the brain dated 11/15/2023. TECHNIQUE: MRI of the brain was performed utilizing various T1 and T2-weighted sequences in the axial, sagittal, and coronal planes. IV contrast was not administered for this examination. FINDINGS: Brain parenchyma: The brain parenchyma is normal in appearance. There is no hemorrhage or mass effect. There is no restricted diffusion to suggest acute ischemia. Dickey-white matter differentiation is preserved. No extra-axial fluid collection is seen. The cerebellar tonsils are normal in configuration. Ventricles, sulci, and cisterns: Normal in configuration. Pituitary and sella: Unremarkable. Intracranial vasculature: Normal flow voids are maintained at the skull base. Orbits: The bony orbits are grossly intact. Orbital contents are normal in appearance. Sinuses and mastoids: There is evidence of previous paranasal sinus surgery. Mild mucosal thickening is noted in the maxillary antra. The mastoid air cells are clear. Calvarium: Unremarkable. Cervical cord: Partially visualized cervical spinal cord is normal in morphology and signal intensity. IMPRESSION: No acute intracranial abnormality. ACT 112: Negative or not required by law. Electronically signed by: Femi Watters M.D. 11/15/2023 10:27 PM Hospital Course (1) Complicated migraine: Patient presented with stroke-like symptoms including numbness in the right lower half of her face, numbness of the tongue, numbness of the neck, as well as numbness in the right arm. She also had what sounds like severe tinnitus of the ears and nausea. Shortly after presentation she had a severe headache consistent with previous episodes of migraine. The patient's headache improved during the first portion of her stay, and with it her numbness also improved/resolved. MRI brain was negative for acute or subacute stroke. CTA head and neck were both negative for aneurysm, dissection, etc. Echocardiogram showed preserved EF but did demonstrate an inter-atrial shunt suggestive of PFO. Her clinical picture was most consistent with a complicated migraine headache rather than TIA event. With that said, however, I did recommend a baby aspirin 81mg daily in light of previous TIA event several years ago. For future migraine I prescribed Nurtec ODT to use PRN. (2) Stroke-like symptoms: 2nd to #1 above. In light of prior VTE event, being off of systemic anticoagulation, and the presence of a PFO I recommended dopplers of both legs to exclude DVT. Theoretically if she had a DVT of either leg she could have had a TIA event as a result of the DVT (portion of DVT travels through the venous circulation, up to the heart, through the PFO right to left, and then up to the brain). We DID RECOMMEND DOPPLERS OF THE LEGS. HOWEVER, the patient refused to have the dopplers while hospitalized. We attempted to obtain the venous duplex study MULTIPLE times and each instance she declined such. I counseled her on the theoretical risk of TIA as a result of DVT in the setting of a PFO. Despite this counseling she still refused the dopplers. Although the most likely etiology for her presentation was a complicated migraine, it still would have been prudent to exclude a DVT of her legs for the reasons noted above. (3) Numbness: 2nd to #1 above resolved MRI brain NEGATIVE for acute/subacute stroke (4) Hx of venous thrombosis and embolism: Previously took Eliquis up until about 1 year ago. Recommended that she f/u with her PCP and discuss resumption of her anticoagulation. (5) Personal history of transient ischemic attack (TIA), and cerebral infarction without residual deficits: Per her medical history (6) Factor V Leiden: History of such (7) Insomnia: The patient reported severe insomnia in the days leading up to this admission. She follows with psychiatry in [place] for her mental health disorders. She was reluctant for me to contact psychiatry to inquire about what to do for her poor sleep. She reports she will contact her psychiatrist shortly after discharge to determine the next best steps for her insomnia. (8) PFO (patent foramen ovale): Seen on echocardiogram / bubble study while here. See discussion above in #2. Total Time Total Time Spent Total Time Spent (In Minutes): 50 Discharge Plan Discharge Items Patient Disposition: Home - Self-Care Reason For Visit: Numbness, Concern for Stroke Discharge Diagnosis: 1. complex migraine 2. stroke-like symptoms, numbness of face/arm - due to #1 above; no evidence of stroke on MRI brain; numbness resolved 3. insomnia 4. low-normal vitamin B12 level (your level - 252; normal >180) 5. patent foramen ovale (PFO) Activity: As commented below Activity Comment: plan to take it easy for 2-3 days then gradually resume normal activities Exercise/Sports: Wait until after follow-up appointment Non-emergency contact: Primary Care Provider Call non-emergency contact if: you have any medication questions, your symptoms worsen, your pain is not controlled, your pain is worsening, your pain is unusual for you, your pain is concerning for you and you have a fever Follow-up/Referrals: Alex Anders MD [Primary Care Provider] - (see Dr Anders this week if possible ) Diet: Regular Addtl Attending Provider Instructions: Mrs Elder, You were hospitalized after presenting with right sided facial numbness, right arm numbness, and some numbness of the tongue. There was concern for stroke and thus CT scans and MRI of the brain were obtained. The MRI did NOT show a stroke. CT scans of the arteries of the head/neck were normal - we did not find aneurysms, blockages, etc. Echocardiogram of your heart was normal except for a small hole in the top portion of the heart called a "patent foramen ovale" (PFO). About 20% of the population has this; you were born with it. Lyme disease testing was negative. COVID testing was negative. Lucas virus screening test was negative. Flu test was negative. During the stay you had a severe migraine headache. The headache finally improved with multiple medicines. As your headache resolved your right-sided numbness resolved with it. It is likely that you had suffered from a "complex migraine." With a complex migraine the headache can be preceded by neurological symptoms that can mimic a stroke. As the headache resolves the neurological symptoms will resolve as well. I believe that the severe migraine came on because of severe insomnia, stress, etc over the last couple of weeks. Recommendations - 1. plan to take it easy over the next few days; would recommend staying home from work tomorrow and Friday. 2. for any future migraine you can take Nurtec ODT - 1 tablet by mouth as needed. Maximum 1 tablet in 24 hours. Typically the headache will resolve within 2 hours of taking the Nurtec. 3. if you have nausea with your headache you can take ondansetron 4mg every 6 hours as needed. 4. please take a baby aspirin 81mg daily for stroke prevention. You can buy the aspirin [id number]. 5. please talk to your psychiatrist or family doctor about your severe insomnia. 6. take an [id number] vitamin B12 supplement 1000mcg (1mg) daily for about 6 months to replenish your B12 stores. 7. see Dr Anders this week for a hospital follow-up appointment. Please talk with him about whether to resume your Eliquis. Please speak with him about getting the doppler studies of your legs to rule out a DVT blood clot. As we discussed there is a small chance that if a DVT blood clot is in your leg it could theoretically break off, travel up to the heart, travel thru the PFO, and then up to the brain to cause a neurological event. It is uncommon but possible. I strongly recommend that you get these doppler studies SOON POSSIBLE - this week if possible. Return to [facility] if - * you have recurrent neurological symptoms - numbness, weakness, difficulty speaking, difficulty swallowing, etc * you have severe headache that will not resolve despite taking Nurtec and/or your other medicines * you have shortness of breath or chest pains * you have leg pains, swelling in your legs, etc * any other concerns Pending Studies at Discharge: Yes Studies:: Lucas testing Stand-Alone Forms: My [facility], Work/School Release, Smoking Cessation Medications and DC Order Prescriptions: New aspirin 81 mg Tablet,Delayed Release (Dr/Ec) 81 mg PO QAM Qty: 90 3RF Rx Instructions: purchase [id number] Nurtec ODT 75 mg tablet,disintegrating 75 mg PO ONCE PRN (Reason: migraine headache) Qty: 8 0RF Rx Instructions: maximum 1 dose in 24 hours. cyanocobalamin (vitamin B-12) 1,000 mcg tablet 1,000 mcg PO DAILY Qty: 90 2RF Rx Instructions: purchase [id number] Continued omega-3 fatty acids 1,000 mg capsule 1,000 mg PO QAM lamotrigine [Lamictal] 150 mg Tablet 150 mg PO HS dextroamphetamine-amphetamine [Adderall XR] 30 mg Capsule,Extended Release 24hr 30 mg PO QAM Rx Instructions: mon-fri Calcium 600 + D(3) 600 mg calcium- 200 unit Capsule 1 cap PO DAILY escitalopram oxalate 10 mg Tablet 10 mg PO QPM quetiapine 100 mg Tablet 100 mg PO QPM tizanidine 4 mg tablet 4 mg PO Q8 PRN (Reason: Migraine Headache) alprazolam 1 mg tablet 1 mg PO QPM PRN (Reason: Anxiety) risperidone 1 mg tablet 1 mg PO QPM Heavy Duty Powder Mvi 1 dose PO DAILY ondansetron 4 mg tablet,disintegrating 4 mg PO Q6H PRN (Reason: nausea and vomiting) Qty: 10 0RF Discharge Orders: Discharge Order (Routine); Ordered 11/16/23 Ordered By: Chandler Casper Admission Data Admit Date/Time: 11/15/23 22:24 Attending Provider: Chandler Casper Admit Provider: Lily Sidhu Primary Care Provider: Alex Anders Other Providers: Dedrick Garcia Other Interventions: Discharge Summary Assessment (RN) Last Done: 11/16/23 19:44 Coding Level of Care Code 27615 INP/OBS DISCH >30 MIN Diagnoses Complicated migraine G43.109 Stroke-like symptoms R29.90 Numbness R20.0 Hx of venous thrombosis and embolism Z86.718 Personal history of transient ischemic attack (TIA), and cerebral infarction without residual deficits Z86.73 Factor V Leiden D68.51 Insomnia G47.00 PFO (patent foramen ovale) Q21.12
--- NOTE | 2023-11-16 19:48 | Billing Data ---
Date of Service November 16, 2023 Coding Level of Care Code 27002 INT INP/OBS CARE
[2023-11-16] MEDS ORDERED: lamoTRIgine 100 MG TAB PO SCH (21:00)
[2023-11-16] MEDS ORDERED: lamoTRIgine 25 MG TAB PO SCH (21:00)
[2023-11-16] MEDS ORDERED: risperiDONE 1 MG TABLET PO SCH (21:00)
[2023-11-16] MEDS ORDERED: QUEtiapine FUMARATE 100 MG TABLET PO SCH (21:00)
[2023-11-16] MEDS ORDERED: ALPRAZolam 0.5 MG TABLET PO SCH (21:00)
[2023-11-17 07:39] LABS: Estimated Average Glucose 114 mg/dl; Hemoglobin A1C 5.6 % (4.5-5.6)
--- NOTE | 2023-11-18 07:20 | Electrocardiogram Report ---
Test Reason : Blood Pressure : / mmHG Vent. Rate : 086 BPM Atrial Rate : 086 BPM P-R Int : 130 ms QRS Dur : 076 ms QT Int : 354 ms P-R-T Axes : 000 -17 141 degrees QTc Int : 423 ms Poor data quality, interpretation may be adversely affected Normal sinus rhythm Nonspecific T wave abnormality Abnormal ECG When compared with ECG of 09-OCT-2022 22:32, No significant change Confirmed by Yonny Sanchez ([id number]) on 11/18/2023 7:20:08 AM Referred By: REFERRED SELF Confirmed By:Yonny Sanchez
[2023-11-18 13:17] LABS: EBV Nuclear Ag Antibody <18.00 U/mL; EBV Virus Capsid Ag IgG Ab >750.00 U/mL
== END 2023-11-16 19:46 | disposition home or self-care (01) | DRG 103 ==
LOC: ED 19:24 → SUATTDRO 22:24 → EDINP 22:24